=== PATIENT | male | born 1960 | race Two or more races ===

== ENCOUNTER 2019-02-22 16:10 | Inpatient (IN) | payer BC ==
[~2019-02-22] VITALS: Ht 172.7 cm; Wt 79.2 kg
[2019-02-22] MEDS ORDERED: fentaNYL PF VIAL 100 MCG/2 ML VIAL ONE ×2 (16:15→17:37)
[2019-02-22] MEDS ORDERED: IV NORMAL SALINE 1000ML BAG 1,000 ML IV STA (16:21)
[2019-02-22] MEDS ORDERED: IV NORMAL SALINE 1000ML BAG 1,000 ML IV ONE ×3 (16:30)
[2019-02-22] MEDS ORDERED: MORPHINE SULFATE 4 MG/ML VIAL. IV ONE (16:30)
[2019-02-22 16:36] LABS: BASO # 0.1 x10^3/uL (0.0-0.2); BASO % 1 % (0-3); EOS # 0.1 x10^3/uL (0.0-0.7); EOS % 1 % (0-3); HEMATOCRIT 36.7 % (39.0-53.0); LYMPH # 5.8 x10^3/uL (1.0-4.8); LYMPH % 45 % (24-48); MEAN CORPUSCULAR HEMOGLOBIN 30 pg (25-35); MEAN CORPUSCULAR HGB CONC 33 g/dL (31-37); MEAN CORPUSCULAR VOLUME 92 fL (79-100); MONO # 0.6 x10^3/uL (0.0-1.1); MONO % 5 % (0-9); NEUT # 6.1 x10^3uL (1.8-7.7); NEUT % 48 % (31-73); PLATELET COUNT 252 x10^3/uL (140-400); RED BLOOD COUNT 3.99 x10^6/uL (4.30-5.70); RED CELL DISTRIBUTION WIDTH 13.9 % (11.5-14.5); WHITE BLOOD COUNT 12.8 x10^3/uL (4.0-11.0)
--- NOTE | 2019-02-22 16:41 | RAD ---
EXAM: CHEST 1 VIEW History: Postcardiac arrest COMPARISON: None available. TECHNIQUE: Single portable radiograph of the chest FINDINGS: Mild cardiomegaly. Mild prominent appearing bilateral interstitial lung markings likely mild congestive changes. The costophrenic sulci are clear and well demarcated. IMPRESSION: 1. Mild congestive changes. Electronically signed by: Ernst Robb MD (02/22/2019 4:38 PM) [facility]
[2019-02-22 16:44] LABS: PROTHROMBIN TIME PATIENT 12.5 SEC (11.7-14.0)
[2019-02-22] MEDS ORDERED: AMIODARONE 150 MG in IV DEXTROSE 5% 100ML 100 ML IV ONE (16:45)
[2019-02-22] MEDS ORDERED: AMIODARONE 900 MG in IV DEXTROSE 5% 500 ML IV PRN (16:45)
[2019-02-22] MEDS ORDERED: PROPOFOL 10 MG/ML (20ML) VIAL. IV ONE (16:45)
[2019-02-22] MEDS ORDERED: PROPOFOL 100 ML IV ONE (16:50)
[2019-02-22 16:56] LABS: ALBUMIN/GLOBULIN RATIO 1.3 (1.0-1.7); CREATININE 1.5 mg/dL (0.7-1.3); GFR 47.7; TOTAL BILIRUBIN 0.4 mg/dL (0.2-1.0)
--- NOTE | 2019-02-22 16:56 | PHYS DOC ---
Adult General HPI HPI Patient is a 58 year old male who was brought here by EMS status post cardiac arrest. Per report patient was running marathons today, he finished about a mile, got into the back of a van to go to the next station, when he started s creaming and became unresponsive. The person in the van with him at the time started CPR. EMS was called, when they got there, took over CPR, in VF. Patient was shocked once, ROSC achieved. Patient was moaning, moving around in bed, appeared in pain. There was no evidence of trauma. Patient was brought here. Upon arrival, patient was agitated, rapid heart rate, appeared very uncomfortable, moaning. He was able to breath on his own. Patient was given 100 mcg OF Fentanyl upon arrival here. Patient appeared more relaxed. However, after the medication worn off, he became agitated and tried to pull out iv, medical devices, tried to get out of the bed. He was intubated by this physicia n by RSI for airway protection. PER FAMILY, PATIENT IS VERY HEALTHY, EXERCISE REGULARLY, ON BLOOD PRESSURE MEDICATION, ON cholesterol medication, no history of diabetic, no history of coronary artery disease. He has been under lot of stress lately due to his medical condition. Review of Systems Review of Systems not able to obtain due to condition All other systems were reviewed and found to be within normal limits, except as documented in this note. Current Medications Current Medications Current Medications Medications (Trade) Dose Ordered Sig/John Start Time Stop Time Status Last Admin Dose Admin Amiodarone HCl 150 mg/Dextrose 103 ml @ 618 mls/hr 1X ONCE 02/22/19 16:45 02/22/19 16:54 DC Amiodarone HCl 900 mg/Dextrose 518 ml @ 33 mls/hr CONT PRN 02/22/19 16:45 Etomidate (Amidate) 20 mg STK-MED ONCE 02/22/19 17:12 02/22/19 17:13 DC Fentanyl Citrate (Fentanyl 2ml Vial) 100 mcg STK-MED ONCE 02/22/19 16:15 02/22/19 16:16 DC Morphine Sulfate (Morphine Sulfate) 4 mg 1X ONCE 02/22/19 16:30 02/22/19 16:31 DC Ondansetron HCl (Zofran) 4 mg PRN Q8HRS PRN 02/22/19 17:15 02/23/19 17:14 Potassium Chloride 40 meq/ Dextrose 1,020 ml @ 75 mls/hr 1X ONCE 02/22/19 17:15 02/23/19 06:50 02/22/19 17:50 75 MLS/HR Propofol 100 ml @ As Directed STK-MED ONCE 02/22/19 16:50 02/22/19 16:51 DC Propofol (Diprivan) 200 mg 1X ONCE 02/22/19 16:45 02/22/19 16:46 DC Rocuronium [place] (Zemuron) 50 mg STK-MED ONCE 02/22/19 17:12 02/22/19 17:13 DC Sodium Chloride 1,000 ml @ 75 mls/hr [id number] 02/22/19 17:15 02/23/19 17:14 Allergies Allergies Physical Exam Physical Exam Constitutional: Well developed, well nourished, IN SEVERE DISTRESS, AGITATION.. HENT: Normocephalic, atraumatic, bilateral external ears normal, oropharynx moist, no oral exudates, nose normal. [] Eyes: PERRLA, EOMI, conjunctiva normal, no discharge. [] Neck: Normal range of motion, no tenderness, supple, no stridor. [] Cardiovascular: SINUS TACHYCARDIA, regular rhythm, no murmur [] Lungs & Thorax: Bilateral breath sounds clear to auscultation [] Abdomen: Bowel sounds normal, soft, no tenderness, no masses, no pulsatile masses. [] Skin: SKIN IS HOT TO TOUCH, PROFOUND DIAPHORESIS. Back: NO DEFORMITY, NO STEP OFF Extremities: ATRAUMATIC, no cyanosis, no clubbing, ROM intact, no edema. CALF MUSCLE APPEARED TENSED AND SPASM. NO INJURY Neurologic: PATIENT IS UNRESPONSIVE TO PAIN OR VERBAL COMMAND, THRASHING AROUND IN BED, APPEARED VERY UNCOMFORTABLE. OBSERVED MOVING ALL EXTREMITIES. Psychologic: NOT ABLE TO EVALUATE DUE TO AGITATED CONDITION. Current Patient Data Vital Signs Vital Signs Date Time Temp Pulse Resp B/P (MAP) Pulse Ox O2 Delivery O2 Flow Rate FiO2 02/22/19 16:10 160 Bag Valve Mask Lab Values Laboratory Tests Test 02/22/19 16:10 White Blood Count 12.8 x10^3/uL (4.0-11.0) H Red Blood Count 3.99 x10^6/uL (4.30-5.70) L Hemoglobin 12.0 g/dL (13.0-17.5) L Hematocrit 36.7 % (39.0-53.0) L Mean Corpuscular Volume 92 fL (79-100) Mean Corpuscular Hemoglobin 30 pg (25-35) Mean Corpuscular Hemoglobin Concent 33 g/dL (31-37) Red Cell Distribution Width 13.9 % (11.5-14.5) Platelet Count 252 x10^3/uL (140-400) Neutrophils (%) (Auto) 48 % (31-73) Lymphocytes (%) (Auto) 45 % (24-48) Monocytes (%) (Auto) 5 % (0-9) Eosinophils (%) (Auto) 1 % (0-3) Basophils (%) (Auto) 1 % (0-3) Neutrophils # (Auto) 6.1 x10^3uL (1.8-7.7) Lymphocytes # (Auto) 5.8 x10^3/uL (1.0-4.8) H Monocytes # (Auto) 0.6 x10^3/uL (0.0-1.1) Eosinophils # (Auto) 0.1 x10^3/uL (0.0-0.7) Basophils # (Auto) 0.1 x10^3/uL (0.0-0.2) Prothrombin Time 12.5 SEC (11.7-14.0) Prothrombin Time INR 1.0 (0.8-1.1) PTT 24 SEC (24-38) Sodium Level 141 mmol/L (136-145) Potassium Level 2.7 mmol/L (3.5-5.1) *L Chloride Level 101 mmol/L (98-107) Carbon Dioxide Level 16 mmol/L (21-32) L Anion Gap 24 (6-14) H Blood Urea Nitrogen 17 mg/dL (8-26) Creatinine 1.5 mg/dL (0.7-1.3) H Estimated GFR (Cockcroft-Gault) 47.7 BUN/Creatinine Ratio 11 (6-20) Glucose Level 224 mg/dL (70-99) H Calcium Level 9.0 mg/dL (8.5-10.1) Magnesium Level 2.0 mg/dL (1.8-2.4) Total Bilirubin 0.4 mg/dL (0.2-1.0) Aspartate Amino Transferase (AST) 190 U/L (15-37) H Alanine Aminotransferase (ALT) 221 U/L (16-63) H Alkaline Phosphatase 55 U/L (46-116) Creatine Kinase 178 U/L (39-308) Creatine Kinase MB (Mass) 2.1 ng/mL (0.0-3.6) Creatine Kinase MB Relative Index 1.2 % (0-4) Troponin I Quantitative < 0.017 ng/mL (0.000-0.055) WS-Rmi-Z-Type Natriuretic Peptide 175 pg/mL (0-124) H Total Protein 7.0 g/dL (6.4-8.2) Albumin 4.0 g/dL (3.4-5.0) Albumin/Globulin Ratio 1.3 (1.0-1.7) Lipase 131 U/L (73-393) Laboratory Tests 02/22/19 16:10 Laboratory Tests 02/22/19 16:10 EKG EKG EKG read by this physician at 1617, rate of 145 bpm, sinus tachycardia[] Radiology/Procedures Radiology/Procedures [][facility] [address] [facility] [place], [place] [id number] IMAGING REPORT Signed PATIENT: MARISSA BARNES ACCOUNT: [id number] : 1960 LOCATION: ER AGE: 58 SEX: M EXAM STATUS: REG ER ORD. PHYSICIAN: NGHIA DEL CASTILLO DO REASON: POST INTUBATION PROCEDURE: CHEST AP ONLY CHEST AP ONLY 4:44 PM Clinical indications: Post intubation. COMPARISON: Same day 4:26 PM Findings: ET tube is in place and the tip is located 4.5 cm above the level of the lorna. NG tube is in place and the tip is seen within the proximal body of the stomach. Persistent mild bilateral interstitial pulmonary edema or central interstitial lung infiltrates/bronchitis is again evident and is stable. No new lung consolidation or pleural effusion or pneumothorax is seen. The heart size and mediastinum are stable. IMPRESSION: Stable congestive changes. Electronically signed by: Aaron Alvarado MD (02/22/2019 5:01 PM) [id number] DICTATED and SIGNED BY: AARON ALVARADO MD DATE: 02/22/19 1701 Course & Med Decision Making Course & Med Decision Making Pertinent Labs and Imaging studies reviewed. (See chart for details) Patient appeared agitated and uncomfortable, moaning as if he as if he was in pain, his legs muscle cramping and spasm. He appeared to have muscle spasm , having rhabdomyolysis. He was sweated profusely. Patient has multiples iv placed, IV fluids were started. Patient was given 100 mcg Fentanyl iv bolus. He appeared more comfortable after iv pain medication. However, when medication worn off, his heart rate sped up and he started thrashing in bed again, moaning, appeared very agitated, twisting his legs and arm, tried to get out of bed. Patient was intubated for airway protection. Patient's came, requested transfer to [facility] BUT PATIENT WAS NOT STABLE TO BE TRANSFERRED AT THIS TIME. DRY CLEANING CHECKER, Dr. MATHIAS came to ER and evaluated patient. Patient was not STEMI PATIENT. HE AGREED THAT PATIENT WAS NOT STABLE FOR TRANSFER. Dragon Disclaimer Dragon Disclaimer This electronic medical record was generated, in whole or in part, using a voice recognition dictation system. Intubation Procedure Intub Indication: AGITATION, ALTERED MENTAL STATUS Consent: Unable to give consent due to emergent nature. Medications Used: 50 MG ROCURONIUM, 20 ETOMIDATE IV. Procedure: The patient was placed in the appropriate position. Intubation was performed [CORD VISUALIZATION METHOD] [ET TUBE SIZE 7.5 ] endotracheal tube. [ET SECURE AT 24 AT LIP). Initial confirmation of placement included bilateral breath sounds, tube fogging, adequate chest rise, adequate pulse oximetry reading. A chest x-ray to verify correct placement of the tube showed appropriate tube position. The patient tolerated the procedure well. Complications: none. Departure Departure Impression: Primary Impression: Ventricular fibrillation Additional Impressions: Cardiac arrest Dehydration Disposition: 09 ADMITTED INPATIENT Admitting Physician: Machelle Linn Condition: GUARDED Referrals: UNKNOWN PCP NAME (PCP) Problem Qualifiers NGHIA DEL CASTILLO DO February 22, 2019 16:56
[2019-02-22] MEDS: PROPOFOL 100 ML IV PRN ×2 (16:57→21:11)
[2019-02-22 17:04] LABS: POTASSIUM 2.7 mmol/L (3.5-5.1)
--- NOTE | 2019-02-22 17:04 | RAD ---
CHEST AP ONLY 4:44 PM Clinical indications: Post intubation. COMPARISON: Same day 4:26 PM Findings: ET tube is in place and the tip is located 4.5 cm above the level of the lorna. NG tube is in place and the tip is seen within the proximal body of the stomach. Persistent mild bilateral interstitial pulmonary edema or central interstitial lung infiltrates/bronchitis is again evident and is stable. No new lung consolidation or pleural effusion or pneumothorax is seen. The heart size and mediastinum are stable. IMPRESSION: Stable congestive changes. Electronically signed by: Saúl Alvarado MD (02/22/2019 5:01 PM) [id number]
[2019-02-22] MEDS ORDERED: ROCURONIUM 50 MG/5 ML VIAL. ONE (17:12)
[2019-02-22] MEDS ORDERED: ETOMIDATE 20 MG/10 ML VIAL. IV ONE ×2 (17:12→20:30)
[2019-02-22] MEDS ORDERED: ONDANSETRON PF 4 MG/2 ML VIAL. IV PRN (17:15)
[2019-02-22] MEDS ORDERED: POTASSIUM CHLORIDE 40 MEQ in IV DEXTROSE 5% 1,000 ML IV ONE (17:15)
[2019-02-22] MEDS ORDERED: IV NORMAL SALINE 1000ML BAG 1,000 ML IV SCH (17:15)
[2019-02-22] MEDS ORDERED: POTASSIUM CHLORIDE 20 MEQ/15 ML ORAL LIQUID. NG ONE (17:30)
[2019-02-22] MEDS ORDERED: LABETALOL 20 MG/4 ML DISP.SYRIN. IVP ONE (17:30)
[2019-02-22] MEDS ORDERED: MIDAZOLAM HCL/PF 5 MG/5 ML VIAL. ONE (17:58)
[2019-02-22 18:03] LABS: BASE EXCESS ABG -10 mmol/L (-3-3); HCO3 ABG 16 mmol/L (21-28); PCO2 ABG 37 mmHg (35-46); PO2 ABG 161 mmHg (65-108); SAT O2 ABG 98 % (92-99)
[2019-02-22] MEDS ORDERED: SODIUM BICARB ADULT 8.4% 50 MEQ/50 ML DISP.SYRIN. ONE (18:08)
[2019-02-22] MEDS ORDERED: VECURONIUM BOLUS 10 MG VIAL. IV ONE (19:25)
[2019-02-22] MEDS ORDERED: MIDAZOLAM HCL/PF 2 MG/2 ML VIAL. IV ONE (19:30)
[2019-02-22] MEDS ORDERED: fentaNYL PF VIAL 100 MCG/2 ML VIAL IV ONE ×3 (19:30→21:30)
[2019-02-22] MEDS ORDERED: POLYVINYL ALCOHOL 1.4% OPHTH SOLUTION 15ML BOTTLE. OU PRN (19:30)
[2019-02-22] MEDS ORDERED: MAGNESIUM SULFATE 1GM 100 ML IV ONE (19:30)
[2019-02-22] MEDS ORDERED: POTASSIUM CL 20MEQ D5-0.45NACL 1,000 ML IV SCH (19:45)
--- NOTE | 2019-02-22 19:45 | PDOC1 ---
History and Physical Date of Admission Date of Admission DATE: 02/22/19 TIME: 19:38 Identification/Chief Complaint Chief Complaint arrest in field Source Source: Chart review History of Present Illness History of Present Illness Mr. Snell, is a 58 year old athletic appearing male brought by EMS status post cardiac arrest. He ran a race today, then at a rest point, became unresponsive, then had no pulse, CPR start, EMS called, , in VF when they arrived, . Patient was shocked once, ROSC achieved. then he was agitated, moaning, moving, appeared in pain. tachycardia and agitated in ER, IV pain meds given, then combative, and he was sedated and intubated, Past Medical History Cardiovascular: HTN Pulmonary: No pertinent hx Hepatobiliary: No pertinent hx Psych: No pertinent hx Rheumatologic: No pertinent hx Infectious disease: No pertinent hx Family History Family History: Family History Unknown Social History Drugs: Other (unknown ) Current Problem List Problem List Problems Medical Problems: (1) Cardiac arrest Status: Acute (2) Dehydration Status: Acute (3) Ventricular fibrillation Status: Acute Current Medications Current Medications Current Medications Fentanyl Citrate (Fentanyl 2ml Vial) 100 mcg STK-MED ONCE .ROUTE ; Start 02/22/19 at 16:15; Stop 02/22/19 at 16:16; Status DC Sodium Chloride 1,000 ml @ 1,000 mls/hr 1X STAT IV ; Start 02/22/19 at 16:21; Stop 02/22/19 at 17:20; Status DC Sodium Chloride 1,000 ml @ 1,000 mls/hr 1X ONCE IV ; Start 02/22/19 at 16:30; Stop 02/22/19 at 17:29; Status DC Sodium Chloride 1,000 ml @ 1,000 mls/hr 1X ONCE IV ; Start 02/22/19 at 16:30; Stop 02/22/19 at 17:29; Status DC Sodium Chloride 1,000 ml @ 1,000 mls/hr 1X ONCE IV ; Start 02/22/19 at 16:30; Stop 02/22/19 at 17:29; Status DC Morphine Sulfate (Morphine Sulfate) 4 mg 1X ONCE IV ; Start 02/22/19 at 16:30; Stop 02/22/19 at 16:31; Status DC Propofol (Diprivan) 200 mg 1X ONCE IV ; Start 02/22/19 at 16:45; Stop 02/22/19 at 16:46; Status DC Amiodarone HCl 150 mg/Dextrose 103 ml @ 618 mls/hr 1X ONCE IV ; Start 02/22/19 at 16:45; Stop 02/22/19 at 16:54; Status DC Amiodarone HCl 900 mg/Dextrose 518 ml @ 33 mls/hr CONT PRN IV SEE I/O RECORD; Start 02/22/19 at 16:45 Propofol 100 ml @ As Directed STK-MED ONCE IV ; Start 02/22/19 at 16:50; Stop 02/22/19 at 16:51; Status DC Potassium Chloride 40 meq/ Dextrose 1,020 ml @ 75 mls/hr 1X ONCE IV Last administered on 02/22/19at 17:50; Start 02/22/19 at 17:15; Stop 02/23/19 at 06:50 Etomidate (Amidate) 20 mg STK-MED ONCE IV ; Start 02/22/19 at 17:12; Stop 02/22/19 at 17:13; Status DC Rocuronium [place] (Zemuron) 50 mg STK-MED ONCE .ROUTE ; Start 02/22/19 at 17:12; Stop 02/22/19 at 17:13; Status DC Labetalol HCl (Normodyne Iv Push) 20 mg 1X ONCE IVP ; Start 02/22/19 at 17:30; Stop 02/22/19 at 17:31; Status DC Potassium Chloride (KCl Oral Soln) 80 meq 1X ONCE NG Last administered on 02/22/19at 17:29; Start 02/22/19 at 17:30; Stop 02/22/19 at 17:31; Status DC Ondansetron HCl (Zofran) 4 mg PRN Q8HRS PRN IV NAUSEA/VOMITING; Start 02/22/19 at 17:15; Stop 02/23/19 at 17:14 Sodium Chloride 1,000 ml @ 75 mls/hr [id number] IV ; Start 02/22/19 at 17:15; Stop 02/23/19 at 17:14 Fentanyl Citrate (Fentanyl 2ml Vial) 100 mcg STK-MED ONCE .ROUTE ; Start 02/22/19 at 17:37; Stop 02/22/19 at 17:38; Status DC Midazolam HCl (Versed) 5 mg STK-MED ONCE .ROUTE ; Start 02/22/19 at 17:58; Stop 02/22/19 at 17:59; Status DC Sodium Bicarbonate (Sodium Bicarb Adult 8.4% Syr) 50 meq STK-MED ONCE .ROUTE ; Start 02/22/19 at 18:08; Stop 02/22/19 at 18:09; Status DC Vecuronium [place] (Norcuron Bolus) 10 mg STK-MED ONCE IV ; Start 02/22/19 at 19:25; Stop 02/22/19 at 19:26; Status DC Fentanyl Citrate (Fentanyl 2ml Vial) 100 mcg 1X ONCE IV ; Start 02/22/19 at 19:30; Stop 02/22/19 at 19:31; Status DC Midazolam HCl (Versed) 2 mg 1X ONCE IV ; Start 02/22/19 at 19:30; Stop 02/22/19 at 19:32; Status DC Magnesium Sulfate/ Dextrose 100 ml @ 100 mls/hr 1X ONCE IV ; Start 02/22/19 at 19:30; Stop 02/22/19 at 20:29 Buspirone HCl (Buspar) 30 mg Q8H NG ; Start 02/22/19 at 19:30; Stop 02/24/19 at 11:31 Acetaminophen (Tylenol) 650 mg Q4H NG ; Start 02/22/19 at 19:30 Artificial Tears (Artificial Tears) 1 drop Q6HRS OU ; Start 02/23/19 at 00:00 Artificial Tears (Artificial Tears) 1 drop PRN Q15MIN PRN OU DRY EYE; Start 02/22/19 at 19:30 Heparin Sodium (Porcine) (Heparin Sodium) 5,000 unit BID SQ ; Start 02/22/19 at 21:00 Fentanyl Citrate 30 ml @ 0 mls/hr CONT PRN IV PER PROTOCOL.; Start 02/22/19 at 19:30 Propofol 100 ml @ 0 mls/hr CONT PRN IV PER PROTOCOL.; Start 02/22/19 at 19:30 Midazolam HCl 100 ml @ 0 mls/hr CONT PRN IV PER PROTOCOL.; Start 02/22/19 at 19:30 Vecuronium [place] (Norcuron Bolus) 8 mg PRN Q1HR PRN IV SHIVERING; Start 02/22/19 at 19:30 Allergies Allergies: Coded Allergies: No Known Drug Allergies (Unverified , 02/22/19) ROS Review of System unable, arrested, then vent Physical Exam General: Other (sedated on vent, ) HEENT: Atraumatic, Other (small pupils, reactive anicteric, ) Lungs: Clear to auscultation, Normal air movement Heart: S1S2, RRR, no murmurs Abdomen: Normal bowel sounds, Soft Rectal Exam: not examined Extremities: No cyanosis, No edema, Normal pulses, Other Skin: No rashes, No breakdown, No significant lesion, Other (scar on left dorsum foot, prior toe surg, cool feet) Neuro: Normal tone, Other Psych/Mental Status: Other (sedated) Vitals Vitals Vital Signs Date Time Temp Pulse Resp B/P (MAP) Pulse Ox O2 Delivery O2 Flow Rate FiO2 02/22/19 16:10 160 Bag Valve Mask Labs Labs Laboratory Tests Test 02/22/19 16:10 White Blood Count 12.8 x10^3/uL (4.0-11.0) Red Blood Count 3.99 x10^6/uL (4.30-5.70) Hemoglobin 12.0 g/dL (13.0-17.5) Hematocrit 36.7 % (39.0-53.0) Mean Corpuscular Volume 92 fL (79-100) Mean Corpuscular Hemoglobin 30 pg (25-35) Mean Corpuscular Hemoglobin Concent 33 g/dL (31-37) Red Cell Distribution Width 13.9 % (11.5-14.5) Platelet Count 252 x10^3/uL (140-400) Neutrophils (%) (Auto) 48 % (31-73) Lymphocytes (%) (Auto) 45 % (24-48) Monocytes (%) (Auto) 5 % (0-9) Eosinophils (%) (Auto) 1 % (0-3) Basophils (%) (Auto) 1 % (0-3) Neutrophils # (Auto) 6.1 x10^3uL (1.8-7.7) Lymphocytes # (Auto) 5.8 x10^3/uL (1.0-4.8) Monocytes # (Auto) 0.6 x10^3/uL (0.0-1.1) Eosinophils # (Auto) 0.1 x10^3/uL (0.0-0.7) Basophils # (Auto) 0.1 x10^3/uL (0.0-0.2) Prothrombin Time 12.5 SEC (11.7-14.0) Prothromb Time International Ratio 1.0 (0.8-1.1) Activated Partial Thromboplast Time 24 SEC (24-38) Sodium Level 141 mmol/L (136-145) Potassium Level 2.7 mmol/L (3.5-5.1) Chloride Level 101 mmol/L (98-107) Carbon Dioxide Level 16 mmol/L (21-32) Anion Gap 24 (6-14) Blood Urea Nitrogen 17 mg/dL (8-26) Creatinine 1.5 mg/dL (0.7-1.3) Estimated GFR (Cockcroft-Gault) 47.7 BUN/Creatinine Ratio 11 (6-20) Glucose Level 224 mg/dL (70-99) Calcium Level 9.0 mg/dL (8.5-10.1) Magnesium Level 2.0 mg/dL (1.8-2.4) Total Bilirubin 0.4 mg/dL (0.2-1.0) Aspartate Amino Transf (AST/SGOT) 190 U/L (15-37) Alanine Aminotransferase (ALT/SGPT) 221 U/L (16-63) Alkaline Phosphatase 55 U/L (46-116) Creatine Kinase 178 U/L (39-308) Creatine Kinase MB (Mass) 2.1 ng/mL (0.0-3.6) Creatine Kinase MB Relative Index 1.2 % (0-4) Troponin I Quantitative < 0.017 ng/mL (0.000-0.055) [id number]-Type Natriuretic Peptide 175 pg/mL (0-124) Total Protein 7.0 g/dL (6.4-8.2) Albumin 4.0 g/dL (3.4-5.0) Albumin/Globulin Ratio 1.3 (1.0-1.7) Lipase 131 U/L (73-393) Laboratory Tests Test 02/22/19 16:10 White Blood Count 12.8 x10^3/uL (4.0-11.0) Red Blood Count 3.99 x10^6/uL (4.30-5.70) Hemoglobin 12.0 g/dL (13.0-17.5) Hematocrit 36.7 % (39.0-53.0) Mean Corpuscular Volume 92 fL (79-100) Mean Corpuscular Hemoglobin 30 pg (25-35) Mean Corpuscular Hemoglobin Concent 33 g/dL (31-37) Red Cell Distribution Width 13.9 % (11.5-14.5) Platelet Count 252 x10^3/uL (140-400) Neutrophils (%) (Auto) 48 % (31-73) Lymphocytes (%) (Auto) 45 % (24-48) Monocytes (%) (Auto) 5 % (0-9) Eosinophils (%) (Auto) 1 % (0-3) Basophils (%) (Auto) 1 % (0-3) Neutrophils # (Auto) 6.1 x10^3uL (1.8-7.7) Lymphocytes # (Auto) 5.8 x10^3/uL (1.0-4.8) Monocytes # (Auto) 0.6 x10^3/uL (0.0-1.1) Eosinophils # (Auto) 0.1 x10^3/uL (0.0-0.7) Basophils # (Auto) 0.1 x10^3/uL (0.0-0.2) Prothrombin Time 12.5 SEC (11.7-14.0) Prothromb Time International Ratio 1.0 (0.8-1.1) Activated Partial Thromboplast Time 24 SEC (24-38) Sodium Level 141 mmol/L (136-145) Potassium Level 2.7 mmol/L (3.5-5.1) Chloride Level 101 mmol/L (98-107) Carbon Dioxide Level 16 mmol/L (21-32) Anion Gap 24 (6-14) Blood Urea Nitrogen 17 mg/dL (8-26) Creatinine 1.5 mg/dL (0.7-1.3) Estimated GFR (Cockcroft-Gault) 47.7 BUN/Creatinine Ratio 11 (6-20) Glucose Level 224 mg/dL (70-99) Calcium Level 9.0 mg/dL (8.5-10.1) Magnesium Level 2.0 mg/dL (1.8-2.4) Total Bilirubin 0.4 mg/dL (0.2-1.0) Aspartate Amino Transf (AST/SGOT) 190 U/L (15-37) Alanine Aminotransferase (ALT/SGPT) 221 U/L (16-63) Alkaline Phosphatase 55 U/L (46-116) Creatine Kinase 178 U/L (39-308) Creatine Kinase MB (Mass) 2.1 ng/mL (0.0-3.6) Creatine Kinase MB Relative Index 1.2 % (0-4) Troponin I Quantitative < 0.017 ng/mL (0.000-0.055) CZ-Ofg-B-Type Natriuretic Peptide 175 pg/mL (0-124) Total Protein 7.0 g/dL (6.4-8.2) Albumin 4.0 g/dL (3.4-5.0) Albumin/Globulin Ratio 1.3 (1.0-1.7) Lipase 131 U/L (73-393) VTE Prophylaxis Ordered VTE Prophylaxis Devices: No VTE Pharmacological Prophylaxi: Yes Assessment/Plan Assessment/Plan cardiac arrest in the field V tach, consult cardiology, unsure of CV hx critcal hypokalemia poss CKD 3 or vasomotor, transaminitis, NOS ICU admit, on vent, PULM consult, cooling protocol supportive care ICU admit, 40 min , 3 visits BO RINCON MD February 22, 2019 19:45
[2019-02-22 20:01] LABS: FIO2 ABG 80%
[2019-02-22 20:15] VITALS: BP 131/78
--- NOTE | 2019-02-22 20:15 | NUR ---
Pt admitted to ICU rm [address] RINCON for post-cardiac arrest out of hospital. Hypothermia protocol ordered, initiated before arrival to ICU. Pt transferred to ICU by 3 PRICER BAGGER's, as well as RT. On arrival, pt on vent 50%, propofol gtt, amiodarone gtt, all VSS with core temperature around 93 degrees Farenheit, and RASS -4, no shivering noted. Hypothermia protocol further initiated, labs drawn, orders received. Admission/past health history completed by Geetha Connolly at bedside.
[2019-02-22 20:30] VITALS: BP 120/71
[2019-02-22] MEDS ORDERED: ROCURONIUM 100 MG/10 ML VIAL. IV ONE (20:30)
[2019-02-22 20:45] VITALS: BP 119/74
[2019-02-22] MEDS ORDERED: SODIUM BICARB ADULT 8.4% 50 MEQ/50 ML DISP.SYRIN. IV ONE (20:45)
--- NOTE | 2019-02-22 20:45 | RAD ---
CT scan of the head without contrast 02/22/2019 Clinical History: Altered mental status. Technique: Unenhanced, contiguous, 5 mm axial sections were obtained through the head. One or more of the following individualized dose reduction techniques were utilized for this study: 1. Automated exposure control. 2. Adjustment of the mA and/or kV according to patient size. 3. Use of iterative reconstruction technique. Findings: No previous studies are available for comparison. There is generalized parenchymal atrophy. Areas of decreased attenuation are seen within the periventricular and subcortical white matter of both cerebral hemispheres consistent with areas of small vessel ischemic disease. No acute parenchymal abnormality is seen. No extra-axial fluid collection is noted. No skull fracture is seen. Impression: No acute intracranial abnormality is seen. CT scan of the cervical spine without contrast 02/22/2019 Clinical history: Neck injury. Technique: Unenhanced, contiguous, 0.625 mm axial sections were obtained through the cervical spine. Axial, coronal and sagittal reconstructed images were obtained. One or more of the following individualized dose reduction techniques were utilized for this study: 1. Automated exposure control. 2. Adjustment of the mA and/or kV according to patient size. 3. Use of iterative reconstruction technique. Findings: Sagittal coronal reconstructed images demonstrate mild lateral curvature of the cervical spine, convex to the right. No fracture or subluxation cervical vertebrae seen. ET and NG tubes are noted in place. Impression: No fracture or subluxation of the cervical vertebra is identified. Electronically signed by: Louis Paris MD (02/22/2019 8:42 PM) [facility]
[2019-02-22 21:00] VITALS: BP 135/66
[2019-02-22] MEDS: POTASSIUM CHLORIDE 10MEQ 100 ML IV SCH ×4 (21:00→23:00)
[2019-02-22] MEDS: VECURONIUM BOLUS 10 MG VIAL. IV PRN ×2 (21:01→21:27)
[2019-02-22] MEDS: busPIRone 10 MG TABLET. NG SCH (21:02)
[2019-02-22] MEDS: ACETAMINOPHEN 650 MG/20.3 ML SOLUTION. NG SCH (21:02)
[2019-02-22 21:09] LABS: CALCIUM 7.2 mg/dL (8.5-10.1); CREATININE 1.1 mg/dL (0.7-1.3); GFR 68.3; POTASSIUM 5.6 mmol/L (3.5-5.1)
[2019-02-22] MEDS: HEPARIN for SUB-Q USE 5,000 UNIT/ML VIAL. SQ SCH (21:24)
[2019-02-22] MEDS ORDERED: MIDAZOLAM HCL/PF 5 MG/5 ML VIAL. IV ONE (21:30)
--- NOTE | 2019-02-22 21:30 | NUR ---
Targeted temperature reached.
[2019-02-22 22:00] VITALS: BP 92/58
--- NOTE | 2019-02-22 22:00 | NUR ---
Dr. Linn called unit to check on patient, updated on status, notified of potassium level of 5.6. Orders received to stop all Potassium replacements and switch to Normal Saline at 150ML/hr.
[2019-02-22] MEDS ORDERED: INSULIN REGULAR VIAL 150 UNIT in 0.9 % SODIUM CHLORIDE 150ML 150 ML IV PRN (22:15)
[2019-02-22 23:00] VITALS: BP 101/57
[2019-02-22] MEDS: MIDAZOLAM 100mg/100ml NS BAG 100 ML IV PRN (23:00)
[2019-02-22] MEDS: IV NORMAL SALINE 1000ML BAG 1,000 ML IV SCH (23:12)
[2019-02-23] VITALS (29 sets, daily range): BP systolic 77–137; BP diastolic 48–77
[2019-02-23] MEDS: ACETAMINOPHEN 650 MG/20.3 ML SOLUTION. NG SCH ×7 (00:30→23:40)
[2019-02-23] MEDS: VECURONIUM BOLUS 10 MG VIAL. IV PRN ×4 (00:39→19:59)
[2019-02-23] MEDS: POLYVINYL ALCOHOL 1.4% OPHTH SOLUTION 15ML BOTTLE. OU SCH ×5 (01:13→23:57)
[2019-02-23 01:51] LABS: BASO # 0.1 x10^3/uL (0.0-0.2); BASO % 0 % (0-3); EOS % 0 % (0-3); HEMATOCRIT 30.7 % (39.0-53.0); HEMOGLOBIN 10.1 g/dL (13.0-17.5); LYMPH # 2.5 x10^3/uL (1.0-4.8); LYMPH % 21 % (24-48); MEAN CORPUSCULAR HEMOGLOBIN 30 pg (25-35); MEAN CORPUSCULAR HGB CONC 33 g/dL (31-37); MEAN CORPUSCULAR VOLUME 92 fL (79-100); MONO % 8 % (0-9); NEUT # 8.2 x10^3uL (1.8-7.7); NEUT % 70 % (31-73); PLATELET COUNT 169 x10^3/uL (140-400); RED BLOOD COUNT 3.36 x10^6/uL (4.30-5.70); WHITE BLOOD COUNT 11.7 x10^3/uL (4.0-11.0)
[2019-02-23 02:07] LABS: CALCIUM 7.3 mg/dL (8.5-10.1); CREATININE 0.9 mg/dL (0.7-1.3); GFR 86.1; MAGNESIUM 2.2 mg/dL (1.8-2.4); PHOSPHORUS 1.9 mg/dL (2.6-4.7); POTASSIUM 4.1 mmol/L (3.5-5.1)
[2019-02-23 02:31] LABS: PROTHROMBIN TIME PATIENT 13.4 SEC (11.7-14.0)
[2019-02-23] MEDS ORDERED: PRAV80TA2 PO (03:18)
[2019-02-23] MEDS ORDERED: QUIN20TA17 PO (03:18)
[2019-02-23] MEDS ORDERED: SODIUM PHOSPHATE 10 MMOL in IV DEXTROSE 5% 250 ML IV ONE (04:00)
[2019-02-23] MEDS ORDERED: MAGNESIUM SULFATE 2GM 50 ML IV ONE ×2 (04:00→09:45)
[2019-02-23] MEDS: busPIRone 10 MG TABLET. NG SCH ×3 (04:02→19:39)
[2019-02-23 05:08] LABS: BILIRUBIN,URINE NEGATIVE (NEG); CLARITY,URINE CLEAR; COLOR,URINE YELLOW; NITRITE,URINE NEGATIVE (NEG); PROTEIN,URINE 30 mg/dL (NEG-TRACE); UROBILINOGEN,URINE 0.2 mg/dL (0.2 mg/dL)
[2019-02-23 05:19] LABS: BACTERIA,URINE FEW /HPF (0-FEW); RBC,URINE 20-40 /HPF (0-2); SQUAMOUS EPITHELIAL CELL,UR FEW /LPF; WBC,URINE OCC /HPF (0-4)
[2019-02-23 05:25] LABS: BARBITURATES NEG (NEG); BENZODIAZEPINES POS (NEG); CANNABINOIDS NEG (NEG); COCAINE NEG (NEG); METHADONE NEG (NEG); OPIATES POS (NEG); PHENCYCLIDINE NEG (NEG)
[2019-02-23 05:28] LABS: AMPHETAMINE/METHAMPHETAMINE NEG (NEG)
[2019-02-23] MEDS: IV NORMAL SALINE 1000ML BAG 1,000 ML IV SCH ×3 (05:36→18:02)
--- NOTE | 2019-02-23 06:24 | EKG ---
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
--- NOTE | 2019-02-23 06:26 | EKG ---
[facility] [address] [place] [address] Test Date: 2019-02-22 Test Time: 16:17:04 Pat Name: MARISSA BARNES Department: Room: [facility] 1 Gender: M Health Record Technician: : 1960 Requested By: BO RINCON Order Number: [id number] Reading MD: Measurements Intervals [place] Rate: 143 P: -167 RI: 122 QRS: 80 QRSD: 80 T: 25 QT: 270 QTc: 421 Interpretive Statements SINUS TACHYCARDIA LEFT ATRIAL ABNORMALITY ST ABNORMALITY, POSSIBLE INFERIOR SUBENDOCARDIAL INJURY ABNORMAL ECG No previous ECG available for comparison
--- NOTE | 2019-02-23 08:03 | PDOC2 ---
CARDIOLOGY CONSULT NOTE CHEIF COMPLAINT: Syncope HPI: 58-year-old male with past medical history as noted below who apparently was doing a 5K run and began to experience some shortness of breath after 1 mile and was climbing into the pace car and passed out. EMS arrived and noted that he was in ventricular fibrillation and was different later once. He was brought to the ER at that time was moving all his extremities but quite agitated and ultimately was intubated for airway protection. Initial blood pressures were elevated with systolic blood pressure greater than 200 and EKG did not reveal any significant ST elevations. His troponin was negative. In speaking with the patient's he had not been having any recent symptoms such as chest pain, dyspnea, orthopnea or PND. He's never had any prior cardiac interventions. He is usually quite active and exercises regularly. 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 He is and has 2 daughters. His works at [employer]. His daughter works at [employer] as a nurse. FAMHX: No family history of sudden cardiac . CURRENT MEDS: Current Medications Medications (Trade) Dose Ordered Sig/John Start Time Stop Time Status Last Admin Dose Admin Acetaminophen (Tylenol) 650 mg Q4H 02/22/19 19:30 02/23/19 04:04 650 MG Amiodarone HCl 150 mg/Dextrose 103 ml @ 618 mls/hr 1X ONCE 02/22/19 16:45 02/22/19 16:54 DC Amiodarone HCl 900 mg/Dextrose 518 ml @ 33 mls/hr CONT PRN 02/22/19 16:45 Artificial Tears (Artificial Tears) 1 drop PRN Q15MIN PRN 02/22/19 19:30 Buspirone HCl (Buspar) 30 mg Q8H 02/22/19 19:30 02/24/19 11:31 02/23/19 04:02 30 MG Etomidate (Amidate) 20 mg 1X ONCE 02/22/19 20:30 02/22/19 20:34 DC 02/22/19 16:31 20 MG Fentanyl Citrate (Fentanyl 2ml Vial) 100 mcg 1X ONCE 02/22/19 21:30 02/22/19 21:31 DC 02/22/19 17:39 100 MCG Heparin Sodium (Porcine) (Heparin Sodium) 5,000 unit BID 02/22/19 21:00 02/22/19 21:24 5,000 UNIT Insulin Human Regular 150 unit/ Sodium Chloride 151.5 ml @ 0 mls/hr CONT PRN 02/22/19 22:15 Labetalol HCl (Normodyne Iv Push) 20 mg 1X ONCE 02/22/19 17:30 02/22/19 17:31 DC Magnesium Sulfate 50 ml @ 25 mls/hr 1X ONCE 02/23/19 04:00 02/23/19 05:59 DC 02/23/19 04:04 25 MLS/HR Magnesium Sulfate/ Dextrose 100 ml @ 100 mls/hr 1X ONCE 02/22/19 19:30 02/22/19 20:34 DC 02/22/19 21:09 100 MLS/HR Midazolam HCl (Versed) 4 mg 1X ONCE 02/22/19 21:30 02/22/19 21:31 DC 02/22/19 17:59 4 MG Morphine Sulfate (Morphine Sulfate) 4 mg 1X ONCE 02/22/19 16:30 02/22/19 16:31 DC 02/22/19 16:27 4 MG Ondansetron HCl (Zofran) 4 mg PRN Q8HRS PRN 02/22/19 17:15 02/23/19 17:14 Potassium Chloride 40 meq/ Dextrose 1,020 ml @ 75 mls/hr 1X ONCE 02/22/19 17:15 02/23/19 06:50 DC 02/22/19 17:50 75 MLS/HR Potassium Chloride/Dextrose/ Sod Cl 1,000 ml @ 100 mls/hr Q10H 02/22/19 19:45 02/23/19 05:34 DC Potassium Chloride/Water 100 ml @ 100 mls/hr Q1H 02/22/19 20:00 02/22/19 23:59 DC 02/22/19 21:08 100 MLS/HR Potassium Chloride (KCl Oral Soln) 80 meq 1X ONCE 02/22/19 17:30 02/22/19 17:31 DC 02/22/19 17:29 80 MEQ Propofol 100 ml @ 0 mls/hr CONT PRN 02/22/19 19:30 02/22/19 21:11 21.6 MLS/HR Propofol (Diprivan) 200 mg 1X ONCE 02/22/19 16:45 02/22/19 16:46 DC Rocuronium [place] (Zemuron) 50 mg 1X ONCE 02/22/19 20:30 02/22/19 20:34 DC 02/22/19 16:32 50 MG Sodium Bicarbonate (Sodium Bicarb Adult 8.4% Syr) 50 meq 1X ONCE 02/22/19 20:45 02/22/19 20:46 DC 02/22/19 18:11 50 MEQ Sodium Chloride 1,000 ml @ 150 mls/hr Q6H40M 02/22/19 22:30 02/23/19 05:36 150 MLS/HR Sodium Phosphate 10 mmol/Dextrose 253.3333 ml @ 64.167 m... 1X ONCE 02/23/19 04:00 02/23/19 07:56 02/23/19 06:24 64.167 MLS/HR Vecuronium [place] (Norcuron Bolus) 8 mg PRN Q1HR PRN 02/22/19 19:30 02/23/19 06:27 8 MG ALLERGIES: Allergies Coded Allergies Type Severity Reaction Last Updated Verified No Known Drug Allergies 02/22/19 No ROS: Unable to be obtained unless as noted as above PHYSICAL EXAM: Vital Signs: Vital Signs Date Time Temp Pulse Resp B/P (MAP) Pulse Ox O2 Delivery O2 Flow Rate FiO2 02/23/19 06:24 100 Ventilator 02/23/19 06:00 91.2 16 02/23/19 06:00 44 95/53 (67) I & O Intake and Output 02/23/19 07:00 Intake Total 5573.9 ml Output Total 2225 ml Balance 3348.9 ml Intake IV Total 5573.9 ml Output Urine Total 1725 ml Gastric Drainage Total 500 ml Physical Exam: On initial examination the ER he was sedated but moving extremities on his own. Cardiac exam revealed normal heart tones. No obvious murmurs rubs or gallops Lungs are fairly clear to auscultation bilaterally Abdomen soft nontender nondistended except these had 2+ pulses in the femoral arteries, radial arteries and pedal vessels No obvious trauma was noted. Skin was without any mottling. DIAGNOSTIC TESTING: Hemoglobin 10.1, creatinine 0.9 Platelets within normal limits Potassium 2.7 upon arrival with repeated 5.6 EKG with sinus tachycardia without any significant ST elevations. Initial EKG that suggested VF is unavailable for review. ASSESSMENT: 1. Cardiac arrest - DDx includes coronary disease (although initial troponin negative and no ST elevations), metabolic derangements (low K) or intrinsic rhythm issues. 2. HTN -stable 3. Dyslipidemia - controlled. PLAN: 1. Currently there is no acute indication for emergent cardiac catheterization. Would suggest continued stabilization and repletion of electrolytes and obtaining a echocardiogram. I discussed this extensively with the patient's family. 2. The patient's family was initially considering transfer to [facility] but in the setting of his instability and weather conditions I advised that he be admitted to [place] and initiated on hypothermic protocol. We will continue to follow serial enzymes and EKGs and determine if any progression of ischemia is occurring and can at that time consider further evaluation and treatment. 3. Continue amiodarone therapy for now. Depending on his clinic records we will likely transfer him to [facility] on , February 24 or pursue further studies here at [place] as needed. RENU LARES MD February 23, 2019 08:03
[2019-02-23] MEDS ORDERED: CONTRAST GIVEN. MC PRN (08:45)
--- NOTE | 2019-02-23 08:49 | PDOC ---
PROGRESS NOTES Chief Complaint Chief Complaint Cardiac arrest in the field V tach - consult cardiology, unsure of CV hx Critical hypokalemia EMA - vasomotor nephropathy Transaminitis, NOS ICU admit, on vent, PULM consult, cooling protocol supportive care ICU admit, 37 min CC time History of Present Illness History of Present Illness Mr. Snell is a 58 yo athletic appearing male brought by EMS status post cardiac arrest after collapsing following a 5K race. He became unresponsive, pulseless, CPR initiated, EMS called, in VF when they arrived, shocked once, ROSC achieved. He was agitated, moaning, moving, appeared in pain, was tachycardia and intubated in ER. S/p cardiology consultation. Other than sinus tachycardia and very mild troponin elevation 0.3 the suspicion for etiology is metabolic derangement, hypokalemia 2.9, replaced, or possible thrombosis. Has been stable on the vent on hypothermia protocol. D/w family bedside. His spouse works at [employer] [facility] and has requested transfer there, which I have explained we can accommodate once more s table. Vitals Vitals Vital Signs Date Time Temp Pulse Resp B/P (MAP) Pulse Ox O2 Delivery O2 Flow Rate FiO2 02/23/19 06:24 100 Ventilator 02/23/19 06:00 91.2 16 02/23/19 06:00 44 95/53 (67) Physical Exam General: No acute distress, Other (sedated on vent, ) Heart: Regular rate Lungs: Clear Abdomen: Normal bowel sounds, Soft Extremities: No cyanosis, No edema, Normal pulses, Other Skin: No rashes, No breakdown, No significant lesion, Other (scar on left dorsum foot, prior toe surg, cool feet) Labs LABS Laboratory Tests Test 02/22/19 16:10 02/22/19 17:41 02/22/19 20:40 02/22/19 22:59 White Blood Count 12.8 x10^3/uL (4.0-11.0) Red Blood Count 3.99 x10^6/uL (4.30-5.70) Hemoglobin 12.0 g/dL (13.0-17.5) Hematocrit 36.7 % (39.0-53.0) Mean Corpuscular Volume 92 fL (79-100) Mean Corpuscular Hemoglobin 30 pg (25-35) Mean Corpuscular Hemoglobin Concent 33 g/dL (31-37) Red Cell Distribution Width 13.9 % (11.5-14.5) Platelet Count 252 x10^3/uL (140-400) Neutrophils (%) (Auto) 48 % (31-73) Lymphocytes (%) (Auto) 45 % (24-48) Monocytes (%) (Auto) 5 % (0-9) Eosinophils (%) (Auto) 1 % (0-3) Basophils (%) (Auto) 1 % (0-3) Neutrophils # (Auto) 6.1 x10^3uL (1.8-7.7) Lymphocytes # (Auto) 5.8 x10^3/uL (1.0-4.8) Monocytes # (Auto) 0.6 x10^3/uL (0.0-1.1) Eosinophils # (Auto) 0.1 x10^3/uL (0.0-0.7) Basophils # (Auto) 0.1 x10^3/uL (0.0-0.2) Prothrombin Time 12.5 SEC (11.7-14.0) Prothromb Time International Ratio 1.0 (0.8-1.1) Activated Partial Thromboplast Time 24 SEC (24-38) Sodium Level 141 mmol/L (136-145) 139 mmol/L (136-145) Potassium Level 2.7 mmol/L (3.5-5.1) 5.6 mmol/L (3.5-5.1) Chloride Level 101 mmol/L (98-107) 106 mmol/L (98-107) Carbon Dioxide Level 16 mmol/L (21-32) 24 mmol/L (21-32) Anion Gap 24 (6-14) 9 (6-14) Blood Urea Nitrogen 17 mg/dL (8-26) 14 mg/dL (8-26) Creatinine 1.5 mg/dL (0.7-1.3) 1.1 mg/dL (0.7-1.3) Estimated GFR (Cockcroft-Gault) 47.7 68.3 BUN/Creatinine Ratio 11 (6-20) Glucose Level 224 mg/dL (70-99) 224 mg/dL (70-99) Calcium Level 9.0 mg/dL (8.5-10.1) 7.2 mg/dL (8.5-10.1) Magnesium Level 2.0 mg/dL (1.8-2.4) Total Bilirubin 0.4 mg/dL (0.2-1.0) Aspartate Amino Transf (AST/SGOT) 190 U/L (15-37) Alanine Aminotransferase (ALT/SGPT) 221 U/L (16-63) Alkaline Phosphatase 55 U/L (46-116) Creatine Kinase 178 U/L (39-308) Creatine Kinase MB (Mass) 2.1 ng/mL (0.0-3.6) Creatine Kinase MB Relative Index 1.2 % (0-4) Troponin I Quantitative < 0.017 ng/mL (0.000-0.055) OH-Yzo-M-Type Natriuretic Peptide 175 pg/mL (0-124) Total Protein 7.0 g/dL (6.4-8.2) Albumin 4.0 g/dL (3.4-5.0) Albumin/Globulin Ratio 1.3 (1.0-1.7) Lipase 131 U/L (73-393) O2 Saturation 98 % (92-99) Arterial Blood pH 7.26 (7.35-7.45) Arterial Blood pCO2 at Patient Temp 37 mmHg (35-46) Arterial Blood pO2 at Patient Temp 161 mmHg (65-108) Arterial Blood HCO3 16 mmol/L (21-28) Arterial Blood Base Excess -10 mmol/L (-3-3) FiO2 80% Glucose (Fingerstick) 169 mg/dL (70-99) Test 02/23/19 01:10 02/23/19 04:50 02/23/19 08:28 White Blood Count 11.7 x10^3/uL (4.0-11.0) Red Blood Count 3.36 x10^6/uL (4.30-5.70) Hemoglobin 10.1 g/dL (13.0-17.5) Hematocrit 30.7 % (39.0-53.0) Mean Corpuscular Volume 92 fL (79-100) Mean Corpuscular Hemoglobin 30 pg (25-35) Mean Corpuscular Hemoglobin Concent 33 g/dL (31-37) Red Cell Distribution Width 14.0 % (11.5-14.5) Platelet Count 169 x10^3/uL (140-400) Neutrophils (%) (Auto) 70 % (31-73) Lymphocytes (%) (Auto) 21 % (24-48) Monocytes (%) (Auto) 8 % (0-9) Eosinophils (%) (Auto) 0 % (0-3) Basophils (%) (Auto) 0 % (0-3) Neutrophils # (Auto) 8.2 x10^3uL (1.8-7.7) Lymphocytes # (Auto) 2.5 x10^3/uL (1.0-4.8) Monocytes # (Auto) 1.0 x10^3/uL (0.0-1.1) Eosinophils # (Auto) 0.0 x10^3/uL (0.0-0.7) Basophils # (Auto) 0.1 x10^3/uL (0.0-0.2) Prothrombin Time 13.4 SEC (11.7-14.0) Prothromb Time International Ratio 1.1 (0.8-1.1) Activated Partial Thromboplast Time 29 SEC (24-38) Sodium Level 144 mmol/L (136-145) Potassium Level 4.1 mmol/L (3.5-5.1) Chloride Level 108 mmol/L (98-107) Carbon Dioxide Level 24 mmol/L (21-32) Anion Gap 12 (6-14) Blood Urea Nitrogen 13 mg/dL (8-26) Creatinine 0.9 mg/dL (0.7-1.3) Estimated GFR (Cockcroft-Gault) 86.1 Glucose Level 115 mg/dL (70-99) Calcium Level 7.3 mg/dL (8.5-10.1) Ionized Calcium 1.01 mmol/L (1.13-1.32) Phosphorus Level 1.9 mg/dL (2.6-4.7) Magnesium Level 2.2 mg/dL (1.8-2.4) Urine Collection Type Unknown Urine Color Yellow Urine Clarity Clear Urine pH 6.0 Urine Specific [place] >=1.030 Urine Protein 30 mg/dL (NEG-TRACE) Urine Glucose (UA) Negative mg/dL (NEG) Urine Ketones (Stick) Negative mg/dL (NEG) Urine Blood Moderate (NEG) Urine Nitrite Negative (NEG) Urine Bilirubin Negative (NEG) Urine Urobilinogen Dipstick 0.2 mg/dL (0.2 mg/dL) Urine Leukocyte Esterase Negative (NEG) Urine RBC 20-40 /HPF (0-2) Urine WBC Occ /HPF (0-4) Urine Squamous Epithelial Cells Few /LPF Urine Bacteria Few /HPF (0-FEW) Urine Opiates Screen Pos (NEG) Urine Methadone Screen Neg (NEG) Urine Barbiturates Neg (NEG) Urine Phencyclidine Screen Neg (NEG) Urine Amphetamine/Methamphetamine Neg (NEG) Urine Benzodiazepines Screen Pos (NEG) Urine Cocaine Screen Neg (NEG) Urine Cannabinoids Screen Neg (NEG) Urine Ethyl Alcohol Neg (NEG) Glucose (Fingerstick) 198 mg/dL (70-99) Assessment and Plan Assessmemt and Plan Problems Medical Problems: (1) Cardiac arrest Status: Acute (2) Dehydration Status: Acute (3) Ventricular fibrillation Status: Acute Comment Review of Relevant I have reviewed the following items taylor (where applicable) has been applied. Labs Laboratory Tests Test 02/22/19 16:10 02/22/19 17:41 02/22/19 20:40 02/22/19 22:59 White Blood Count 12.8 x10^3/uL (4.0-11.0) Red Blood Count 3.99 x10^6/uL (4.30-5.70) Hemoglobin 12.0 g/dL (13.0-17.5) Hematocrit 36.7 % (39.0-53.0) Mean Corpuscular Volume 92 fL (79-100) Mean Corpuscular Hemoglobin 30 pg (25-35) Mean Corpuscular Hemoglobin Concent 33 g/dL (31-37) Red Cell Distribution Width 13.9 % (11.5-14.5) Platelet Count 252 x10^3/uL (140-400) Neutrophils (%) (Auto) 48 % (31-73) Lymphocytes (%) (Auto) 45 % (24-48) Monocytes (%) (Auto) 5 % (0-9) Eosinophils (%) (Auto) 1 % (0-3) Basophils (%) (Auto) 1 % (0-3) Neutrophils # (Auto) 6.1 x10^3uL (1.8-7.7) Lymphocytes # (Auto) 5.8 x10^3/uL (1.0-4.8) Monocytes # (Auto) 0.6 x10^3/uL (0.0-1.1) Eosinophils # (Auto) 0.1 x10^3/uL (0.0-0.7) Basophils # (Auto) 0.1 x10^3/uL (0.0-0.2) Prothrombin Time 12.5 SEC (11.7-14.0) Prothromb Time International Ratio 1.0 (0.8-1.1) Activated Partial Thromboplast Time 24 SEC (24-38) Sodium Level 141 mmol/L (136-145) 139 mmol/L (136-145) Potassium Level 2.7 mmol/L (3.5-5.1) 5.6 mmol/L (3.5-5.1) Chloride Level 101 mmol/L (98-107) 106 mmol/L (98-107) Carbon Dioxide Level 16 mmol/L (21-32) 24 mmol/L (21-32) Anion Gap 24 (6-14) 9 (6-14) Blood Urea Nitrogen 17 mg/dL (8-26) 14 mg/dL (8-26) Creatinine 1.5 mg/dL (0.7-1.3) 1.1 mg/dL (0.7-1.3) Estimated GFR (Cockcroft-Gault) 47.7 68.3 BUN/Creatinine Ratio 11 (6-20) Glucose Level 224 mg/dL (70-99) 224 mg/dL (70-99) Calcium Level 9.0 mg/dL (8.5-10.1) 7.2 mg/dL (8.5-10.1) Magnesium Level 2.0 mg/dL (1.8-2.4) Total Bilirubin 0.4 mg/dL (0.2-1.0) Aspartate Amino Transf (AST/SGOT) 190 U/L (15-37) Alanine Aminotransferase (ALT/SGPT) 221 U/L (16-63) Alkaline Phosphatase 55 U/L (46-116) Creatine Kinase 178 U/L (39-308) Creatine Kinase MB (Mass) 2.1 ng/mL (0.0-3.6) Creatine Kinase MB Relative Index 1.2 % (0-4) Troponin I Quantitative < 0.017 ng/mL (0.000-0.055) AN-Mei-T-Type Natriuretic Peptide 175 pg/mL (0-124) Total Protein 7.0 g/dL (6.4-8.2) Albumin 4.0 g/dL (3.4-5.0) Albumin/Globulin Ratio 1.3 (1.0-1.7) Lipase 131 U/L (73-393) O2 Saturation 98 % (92-99) Arterial Blood pH 7.26 (7.35-7.45) Arterial Blood pCO2 at Patient Temp 37 mmHg (35-46) Arterial Blood pO2 at Patient Temp 161 mmHg (65-108) Arterial Blood HCO3 16 mmol/L (21-28) Arterial Blood Base Excess -10 mmol/L (-3-3) FiO2 80% Glucose (Fingerstick) 169 mg/dL (70-99) Test 02/23/19 01:10 02/23/19 04:50 02/23/19 08:28 White Blood Count 11.7 x10^3/uL (4.0-11.0) Red Blood Count 3.36 x10^6/uL (4.30-5.70) Hemoglobin 10.1 g/dL (13.0-17.5) Hematocrit 30.7 % (39.0-53.0) Mean Corpuscular Volume 92 fL (79-100) Mean Corpuscular Hemoglobin 30 pg (25-35) Mean Corpuscular Hemoglobin Concent 33 g/dL (31-37) Red Cell Distribution Width 14.0 % (11.5-14.5) Platelet Count 169 x10^3/uL (140-400) Neutrophils (%) (Auto) 70 % (31-73) Lymphocytes (%) (Auto) 21 % (24-48) Monocytes (%) (Auto) 8 % (0-9) Eosinophils (%) (Auto) 0 % (0-3) Basophils (%) (Auto) 0 % (0-3) Neutrophils # (Auto) 8.2 x10^3uL (1.8-7.7) Lymphocytes # (Auto) 2.5 x10^3/uL (1.0-4.8) Monocytes # (Auto) 1.0 x10^3/uL (0.0-1.1) Eosinophils # (Auto) 0.0 x10^3/uL (0.0-0.7) Basophils # (Auto) 0.1 x10^3/uL (0.0-0.2) Prothrombin Time 13.4 SEC (11.7-14.0) Prothromb Time International Ratio 1.1 (0.8-1.1) Activated Partial Thromboplast Time 29 SEC (24-38) Sodium Level 144 mmol/L (136-145) Potassium Level 4.1 mmol/L (3.5-5.1) Chloride Level 108 mmol/L (98-107) Carbon Dioxide Level 24 mmol/L (21-32) Anion Gap 12 (6-14) Blood Urea Nitrogen 13 mg/dL (8-26) Creatinine 0.9 mg/dL (0.7-1.3) Estimated GFR (Cockcroft-Gault) 86.1 Glucose Level 115 mg/dL (70-99) Calcium Level 7.3 mg/dL (8.5-10.1) Ionized Calcium 1.01 mmol/L (1.13-1.32) Phosphorus Level 1.9 mg/dL (2.6-4.7) Magnesium Level 2.2 mg/dL (1.8-2.4) Urine Collection Type Unknown Urine Color Yellow Urine Clarity Clear Urine pH 6.0 Urine Specific [place] >=1.030 Urine Protein 30 mg/dL (NEG-TRACE) Urine Glucose (UA) Negative mg/dL (NEG) Urine Ketones (Stick) Negative mg/dL (NEG) Urine Blood Moderate (NEG) Urine Nitrite Negative (NEG) Urine Bilirubin Negative (NEG) Urine Urobilinogen Dipstick 0.2 mg/dL (0.2 mg/dL) Urine Leukocyte Esterase Negative (NEG) Urine RBC 20-40 /HPF (0-2) Urine WBC Occ /HPF (0-4) Urine Squamous Epithelial Cells Few /LPF Urine Bacteria Few /HPF (0-FEW) Urine Opiates Screen Pos (NEG) Urine Methadone Screen Neg (NEG) Urine Barbiturates Neg (NEG) Urine Phencyclidine Screen Neg (NEG) Urine Amphetamine/Methamphetamine Neg (NEG) Urine Benzodiazepines Screen Pos (NEG) Urine Cocaine Screen Neg (NEG) Urine Cannabinoids Screen Neg (NEG) Urine Ethyl Alcohol Neg (NEG) Glucose (Fingerstick) 198 mg/dL (70-99) Laboratory Tests Test 02/22/19 16:10 5/28/19 17:41 02/22/19 20:40 02/22/19 22:59 White Blood Count 12.8 x10^3/uL (4.0-11.0) Red Blood Count 3.99 x10^6/uL (4.30-5.70) Hemoglobin 12.0 g/dL (13.0-17.5) Hematocrit 36.7 % (39.0-53.0) Mean Corpuscular Volume 92 fL (79-100) Mean Corpuscular Hemoglobin 30 pg (25-35) Mean Corpuscular Hemoglobin Concent 33 g/dL (31-37) Red Cell Distribution Width 13.9 % (11.5-14.5) Platelet Count 252 x10^3/uL (140-400) Neutrophils (%) (Auto) 48 % (31-73) Lymphocytes (%) (Auto) 45 % (24-48) Monocytes (%) (Auto) 5 % (0-9) Eosinophils (%) (Auto) 1 % (0-3) Basophils (%) (Auto) 1 % (0-3) Neutrophils # (Auto) 6.1 x10^3uL (1.8-7.7) Lymphocytes # (Auto) 5.8 x10^3/uL (1.0-4.8) Monocytes # (Auto) 0.6 x10^3/uL (0.0-1.1) Eosinophils # (Auto) 0.1 x10^3/uL (0.0-0.7) Basophils # (Auto) 0.1 x10^3/uL (0.0-0.2) Prothrombin Time 12.5 SEC (11.7-14.0) Prothromb Time International Ratio 1.0 (0.8-1.1) Activated Partial Thromboplast Time 24 SEC (24-38) Sodium Level 141 mmol/L (136-145) 139 mmol/L (136-145) Potassium Level 2.7 mmol/L (3.5-5.1) 5.6 mmol/L (3.5-5.1) Chloride Level 101 mmol/L (98-107) 106 mmol/L (98-107) Carbon Dioxide Level 16 mmol/L (21-32) 24 mmol/L (21-32) Anion Gap 24 (6-14) 9 (6-14) Blood Urea Nitrogen 17 mg/dL (8-26) 14 mg/dL (8-26) Creatinine 1.5 mg/dL (0.7-1.3) 1.1 mg/dL (0.7-1.3) Estimated GFR (Cockcroft-Gault) 47.7 68.3 BUN/Creatinine Ratio 11 (6-20) Glucose Level 224 mg/dL (70-99) 224 mg/dL (70-99) Calcium Level 9.0 mg/dL (8.5-10.1) 7.2 mg/dL (8.5-10.1) Magnesium Level 2.0 mg/dL (1.8-2.4) Total Bilirubin 0.4 mg/dL (0.2-1.0) Aspartate Amino Transf (AST/SGOT) 190 U/L (15-37) Alanine Aminotransferase (ALT/SGPT) 221 U/L (16-63) Alkaline Phosphatase 55 U/L (46-116) Creatine Kinase 178 U/L (39-308) Creatine Kinase MB (Mass) 2.1 ng/mL (0.0-3.6) Creatine Kinase MB Relative Index 1.2 % (0-4) Troponin I Quantitative < 0.017 ng/mL (0.000-0.055) AS-Jci-I-Type Natriuretic Peptide 175 pg/mL (0-124) Total Protein 7.0 g/dL (6.4-8.2) Albumin 4.0 g/dL (3.4-5.0) Albumin/Globulin Ratio 1.3 (1.0-1.7) Lipase 131 U/L (73-393) O2 Saturation 98 % (92-99) Arterial Blood pH 7.26 (7.35-7.45) Arterial Blood pCO2 at Patient Temp 37 mmHg (35-46) Arterial Blood pO2 at Patient Temp 161 mmHg (65-108) Arterial Blood HCO3 16 mmol/L (21-28) Arterial Blood Base Excess -10 mmol/L (-3-3) FiO2 80% Glucose (Fingerstick) 169 mg/dL (70-99) Test 02/23/19 01:10 02/23/19 04:50 02/23/19 08:28 White Blood Count 11.7 x10^3/uL (4.0-11.0) Red Blood Count 3.36 x10^6/uL (4.30-5.70) Hemoglobin 10.1 g/dL (13.0-17.5) Hematocrit 30.7 % (39.0-53.0) Mean Corpuscular Volume 92 fL (79-100) Mean Corpuscular Hemoglobin 30 pg (25-35) Mean Corpuscular Hemoglobin Concent 33 g/dL (31-37) Red Cell Distribution Width 14.0 % (11.5-14.5) Platelet Count 169 x10^3/uL (140-400) Neutrophils (%) (Auto) 70 % (31-73) Lymphocytes (%) (Auto) 21 % (24-48) Monocytes (%) (Auto) 8 % (0-9) Eosinophils (%) (Auto) 0 % (0-3) Basophils (%) (Auto) 0 % (0-3) Neutrophils # (Auto) 8.2 x10^3uL (1.8-7.7) Lymphocytes # (Auto) 2.5 x10^3/uL (1.0-4.8) Monocytes # (Auto) 1.0 x10^3/uL (0.0-1.1) Eosinophils # (Auto) 0.0 x10^3/uL (0.0-0.7) Basophils # (Auto) 0.1 x10^3/uL (0.0-0.2) Prothrombin Time 13.4 SEC (11.7-14.0) Prothromb Time International Ratio 1.1 (0.8-1.1) Activated Partial Thromboplast Time 29 SEC (24-38) Sodium Level 144 mmol/L (136-145) Potassium Level 4.1 mmol/L (3.5-5.1) Chloride Level 108 mmol/L (98-107) Carbon Dioxide Level 24 mmol/L (21-32) Anion Gap 12 (6-14) Blood Urea Nitrogen 13 mg/dL (8-26) Creatinine 0.9 mg/dL (0.7-1.3) Estimated GFR (Cockcroft-Gault) 86.1 Glucose Level 115 mg/dL (70-99) Calcium Level 7.3 mg/dL (8.5-10.1) Ionized Calcium 1.01 mmol/L (1.13-1.32) Phosphorus Level 1.9 mg/dL (2.6-4.7) Magnesium Level 2.2 mg/dL (1.8-2.4) Urine Collection Type Unknown Urine Color Yellow Urine Clarity Clear Urine pH 6.0 Urine Specific [place] >=1.030 Urine Protein 30 mg/dL (NEG-TRACE) Urine Glucose (UA) Negative mg/dL (NEG) Urine Ketones (Stick) Negative mg/dL (NEG) Urine Blood Moderate (NEG) Urine Nitrite Negative (NEG) Urine Bilirubin Negative (NEG) Urine Urobilinogen Dipstick 0.2 mg/dL (0.2 mg/dL) Urine Leukocyte Esterase Negative (NEG) Urine RBC 20-40 /HPF (0-2) Urine WBC Occ /HPF (0-4) Urine Squamous Epithelial Cells Few /LPF Urine Bacteria Few /HPF (0-FEW) Urine Opiates Screen Pos (NEG) Urine Methadone Screen Neg (NEG) Urine Barbiturates Neg (NEG) Urine Phencyclidine Screen Neg (NEG) Urine Amphetamine/Methamphetamine Neg (NEG) Urine Benzodiazepines Screen Pos (NEG) Urine Cocaine Screen Neg (NEG) Urine Cannabinoids Screen Neg (NEG) Urine Ethyl Alcohol Neg (NEG) Glucose (Fingerstick) 198 mg/dL (70-99) Medications Current Medications Fentanyl Citrate (Fentanyl 2ml Vial) 100 mcg STK-MED ONCE .ROUTE ; Start 02/22/19 at 16:15; Stop 02/22/19 at 16:16; Status DC Sodium Chloride 1,000 ml @ 1,000 mls/hr 1X STAT IV Last administered on 02/22/19at 16:22; Start 02/22/19 at 16:21; Stop 02/22/19 at 17:20; Status DC Sodium Chloride 1,000 ml @ 1,000 mls/hr 1X ONCE IV Last administered on 02/22/19at 16:14; Start 02/22/19 at 16:30; Stop 02/22/19 at 17:29; Status DC Sodium Chloride 1,000 ml @ 1,000 mls/hr 1X ONCE IV Last administered on 02/22/19at 16:14; Start 02/22/19 at 16:30; Stop 02/22/19 at 17:29; Status DC Sodium Chloride 1,000 ml @ 1,000 mls/hr 1X ONCE IV Last administered on 02/22/19at 16:22; Start 02/22/19 at 16:30; Stop 02/22/19 at 17:29; Status DC Morphine Sulfate (Morphine Sulfate) 4 mg 1X ONCE IV Last administered on 02/22/19at 16:27; Start 02/22/19 at 16:30; Stop 02/22/19 at 16:31; Status DC Propofol (Diprivan) 200 mg 1X ONCE IV ; Start 02/22/19 at 16:45; Stop 02/22/19 at 16:46; Status DC Amiodarone HCl 150 mg/Dextrose 103 ml @ 618 mls/hr 1X ONCE IV ; Start 02/22/19 at 16:45; Stop 02/22/19 at 16:54; Status DC Amiodarone HCl 900 mg/Dextrose 518 ml @ 33 mls/hr CONT PRN IV SEE I/O RECORD; Start 02/22/19 at 16:45 Propofol 100 ml @ As Directed STK-MED ONCE IV ; Start 02/22/19 at 16:50; Stop 02/22/19 at 16:51; Status DC Potassium Chloride 40 meq/ Dextrose 1,020 ml @ 75 mls/hr 1X ONCE IV Last administered on 02/22/19at 17:50; Start 02/22/19 at 17:15; Stop 02/23/19 at 06:50; Status DC Etomidate (Amidate) 20 mg STK-MED ONCE IV ; Start 02/22/19 at 17:12; Stop 02/22/19 at 17:13; Status DC Rocuronium [place] (Zemuron) 50 mg STK-MED ONCE .ROUTE ; Start 02/22/19 at 17:12; Stop 02/22/19 at 17:13; Status DC Labetalol HCl (Normodyne Iv Push) 20 mg 1X ONCE IVP ; Start 02/22/19 at 17:30; Stop 02/22/19 at 17:31; Status DC Potassium Chloride (KCl Oral Soln) 80 meq 1X ONCE NG Last administered on 02/22/19at 17:29; Start 02/22/19 at 17:30; Stop 02/22/19 at 17:31; Status DC Ondansetron HCl (Zofran) 4 mg PRN Q8HRS PRN IV NAUSEA/VOMITING; Start 02/22/19 at 17:15; Stop 02/23/19 at 17:14 Sodium Chloride 1,000 ml @ 75 mls/hr [id number] IV ; Start 02/22/19 at 17:15; Stop 02/23/19 at 06:26; Status DC Fentanyl Citrate (Fentanyl 2ml Vial) 100 mcg STK-MED ONCE .ROUTE ; Start 02/22/19 at 17:37; Stop 02/22/19 at 17:38; Status DC Midazolam HCl (Versed) 5 mg STK-MED ONCE .ROUTE ; Start 02/22/19 at 17:58; Stop 02/22/19 at 17:59; Status DC Sodium Bicarbonate (Sodium Bicarb Adult 8.4% Syr) 50 meq STK-MED ONCE .ROUTE ; Start 02/22/19 at 18:08; Stop 02/22/19 at 18:09; Status DC Vecuronium [place] (Norcuron Bolus) 10 mg STK-MED ONCE IV ; Start 02/22/19 at 19:25; Stop 02/22/19 at 19:26; Status DC Fentanyl Citrate (Fentanyl 2ml Vial) 100 mcg 1X ONCE IV ; Start 02/22/19 at 19:30; Stop 02/22/19 at 19:31; Status DC Midazolam HCl (Versed) 2 mg 1X ONCE IV Last administered on 02/22/19at 21:01; Start 02/22/19 at 19:30; Stop 02/22/19 at 19:32; Status DC Magnesium Sulfate/ Dextrose 100 ml @ 100 mls/hr 1X ONCE IV Last administered on 02/22/19at 21:09; Start 02/22/19 at 19:30; Stop 02/22/19 at 20:34; Status DC Buspirone HCl (Buspar) 30 mg Q8H NG Last administered on 02/23/19at 04:02; Start 02/22/19 at 19:30; Stop 02/24/19 at 11:31 Acetaminophen (Tylenol) 650 mg Q4H NG Last administered on 02/23/19at 04:04; Start 02/22/19 at 19:30 Artificial Tears (Artificial Tears) 1 drop Q6HRS OU Last administered on 02/23/19at 06:24; Start 02/23/19 at 00:00 Artificial Tears (Artificial Tears) 1 drop PRN Q15MIN PRN OU DRY EYE; Start 02/22/19 at 19:30 Heparin Sodium (Porcine) (Heparin Sodium) 5,000 unit BID SQ Last administered on 02/22/19 21:24; Start 02/22/19 at 21:00 Fentanyl Citrate 30 ml @ 0 mls/hr CONT PRN IV PER PROTOCOL. Last administered on 02/23/19 06:58; Start 02/22/19 at 19:30 Propofol 100 ml @ 0 mls/hr CONT PRN IV PER PROTOCOL. Last administered on 02/22/19 21:11; Start 02/22/19 at 19:30 Midazolam HCl 100 ml @ 0 mls/hr CONT PRN IV PER PROTOCOL. Last administered on 02/22/19 23:00; Start 02/22/19 at 19:30 Vecuronium [place] (Norcuron Bolus) 8 mg PRN Q1HR PRN IV SHIVERING Last administered on 02/23/19 06:27; Start 02/22/19 at 19:30 Potassium Chloride/Water 100 ml @ 100 mls/hr Q1H IV Last administered on 02/22/19 21:08; Start 02/22/19 at 20:00; Stop 02/22/19 at 23:59; Status DC Potassium Chloride/Dextrose/ Sod Cl 1,000 ml @ 100 mls/hr Q10H IV ; Start 02/22/19 at 19:45; Stop 02/23/19 at 05:34; Status DC Fentanyl Citrate (Fentanyl 2ml Vial) 100 mcg 1X ONCE IV Last administered on 02/22/19 16:16; Start 02/22/19 at 20:30; Stop 02/22/19 at 20:34; Status DC Etomidate (Amidate) 20 mg 1X ONCE IV Last administered on 02/22/19 16:31; Start 02/22/19 at 20:30; Stop 02/22/19 at 20:34; Status DC Rocuronium [place] (Zemuron) 50 mg 1X ONCE IV Last administered on 02/22/19 16:32; Start 02/22/19 at 20:30; Stop 02/22/19 at 20:34; Status DC Sodium Bicarbonate (Sodium Bicarb Adult 8.4% Syr) 50 meq 1X ONCE IV Last administered on 02/22/19 18:11; Start 02/22/19 at 20:45; Stop 02/22/19 at 20:46; Status DC Fentanyl Citrate (Fentanyl 2ml Vial) 100 mcg 1X ONCE IV Last administered on 02/22/19at 17:39; Start 02/22/19 at 21:30; Stop 02/22/19 at 21:31; Status DC Midazolam HCl (Versed) 4 mg 1X ONCE IV Last administered on 02/22/19at 17:59; Start 02/22/19 at 21:30; Stop 02/22/19 at 21:31; Status DC Insulin Human Regular 150 unit/ Sodium Chloride 151.5 ml @ 0 mls/hr CONT PRN IV SEE I/O RECORD; Start 02/22/19 at 22:15 Sodium Chloride 1,000 ml @ 150 mls/hr Q6H40M IV Last administered on 02/23/19at 05:36; Start 02/22/19 at 22:30 Sodium Phosphate 10 mmol/Dextrose 253.3333 ml @ 64.167 m... 1X ONCE IV Last administered on 02/23/19at 06:24; Start 02/23/19 at 04:00; Stop 02/23/19 at 07:56; Status DC Magnesium Sulfate 50 ml @ 25 mls/hr 1X ONCE IV Last administered on 02/23/19at 04:04; Start 02/23/19 at 04:00; Stop 02/23/19 at 05:59; Status DC Iohexol (Omnipaque 350 Mg/ml) 100 ml 1X ONCE IV ; Start 02/23/19 at 09:00; Stop 02/23/19 at 09:01 Info (CONTRAST GIVEN -- Rx MONITORING) 1 each PRN DAILY PRN MC SEE COMMENTS; Start 02/23/19 at 08:45; Stop 02/25/19 at 08:44 Active Scripts Active Reported Quinapril Hcl 20 Mg Tablet 1 Tab PO DAILY Pravastatin Sodium 80 Mg Tablet 1 Tab PO DAILY Vitals/I & O Vital Sign - Last 24 Hours 02/22/19 02/22/19 02/22/19 02/22/19 16:10 16:15 16:16 16:20 Pulse 160 160 128 Resp 26 B/P (MAP) 102/75 (84) 128/84 (99) Pulse Ox 96 100 O2 Delivery Bag Valve Mask Bag Valve Mask Bag Valve Mask Bag Valve Mask 02/22/19 02/22/19 02/22/1902/22/19 16:25 16:27 16:30 16:35 Pulse 126 134 128 Resp 26 B/P (MAP) 171/73 (105) 171/76 (107) 255/101 (152) Pulse Ox 100 97 100 99 O2 Delivery Bag Valve Mask Bag Valve Mask Bag Valve Mask Bag Valve Mask 02/22/19 02/22/19 02/22/19 02/22/19 16:40 16:45 16:45 16:50 Pulse 128 100 120 B/P (MAP) 221/96 (137) 147/70 (95) 174/76 (108) Pulse Ox 100 100 100 O2 Delivery Bag Valve Mask Bag Valve Mask Ventilator Ventilator 02/22/19 02/22/19 02/22/19 02/22/19 16:50 16:55 17:00 17:39 Pulse 140 136 Resp 20 B/P (MAP) 238/127 (164) 235/108 (150) Pulse Ox 100 100 100 O2 Delivery Ventilator Ventilator Ventilator Ventilator 02/22/19 02/22/19 02/22/19 02/22/19 17:43 17:48 17:53 17:58 Pulse 102 82 87 91 B/P (MAP) 137/97 (110) 119/63 (81) 138/75 (96) 145/62 (89) Pulse Ox 100 99 100 99 O2 Delivery Ventilator Ventilator Ventilator Ventilator 02/22/19 02/22/19 02/22/19 02/22/19 18:03 18:06 18:08 18:10 Pulse 80 79 76 75 B/P (MAP) 101/54 (70) 100/56 (71) 97/55 (69) 92/57 (69) Pulse Ox 100 100 100 100 O2 Delivery Ventilator Ventilator Ventilator Ventilator 02/22/19 02/22/19 02/22/19 02/22/19 18:12 18:15 18:18 18:30 Pulse 74 88 82 B/P (MAP) 99/62 (74) 146/70 (95) 124/66 (85) Pulse Ox 100 100 100 100 O2 Delivery Ventilator Ventilator Ventilator Ventilator 02/22/19 02/22/19 02/22/19 02/22/19 18:33 18:44 19:05 19:15 Temp 93.5 Pulse 91 74 Resp 16 B/P (MAP) 141/78 (99) 114/63 (80) Pulse Ox 100 100 100 95 O2 Delivery Ventilator Ventilator Ventilator Ventilator 02/22/19 02/22/19 02/22/19 02/22/19 19:30 19:45 20:00 20:15 Temp 94.4 94.8 92.1 93.5 93.5 Pulse 66 Resp 16 16 16 16 B/P (MAP) 131/78 (95) Pulse Ox 100 100 100 100 O2 Delivery Ventilator Ventilator Ventilator Ventilator 02/22/19 02/22/19 02/22/19 02/22/19 20:15 20:15 20:30 20:30 Temp 93.5 93.5 93.5 93.5 Pulse 56 Resp 16 16 16 B/P (MAP) 120/71 (87) Pulse Ox 100 100 100 O2 Delivery Mechanical Ventilator Ventilator Ventilator Ventilator 02/22/19 02/22/19 02/22/19 02/22/19 20:45 20:45 20:47 21:00 Temp 93.5 93.2 93.5 93.5 93.5 Pulse 54 58 Resp 16 16 16 B/P (MAP) 119/74 (89) 135/66 (89) Pulse Ox 100 100 100 100 O2 Delivery Ventilator Ventilator Ventilator Ventilator 02/22/19 02/22/19 02/22/19 02/22/19 21:00 21:12 21:15 21:30 Temp 92.3 91.8 91.4 Resp 16 16 16 Pulse Ox 100 100 100 100 O2 Delivery Ventilator Ventilator Ventilator Ventilator 02/22/19 02/22/19 02/22/19 02/23/19 22:00 22:00 23:00 00:00 Temp 91.4 92.3 90.3 91.4 90.3 Pulse 50 48 Resp 16 16 16 B/P (MAP) 92/58 (69) 101/57 (72) Pulse Ox 100 100 100 O2 Delivery Ventilator Ventilator Ventilator Mechanical Ventilator 02/23/19 02/23/19 02/23/19 02/23/19 00:01 00:10 01:01 01:01 Temp 90.5 93.5 91.2 93.5 Pulse 54 Resp 16 16 16 B/P (MAP) 119/74 (89) Pulse Ox 100 100 100 100 O2 Delivery Ventilator Ventilator Ventilator Ventilator 02/23/19 02/23/19 02/23/19 02/23/19 02:00 02:00 02:28 02:58 Temp 92.8 Pulse 48 Resp 16 16 B/P (MAP) 94/67 (76) Pulse Ox 100 100 100 100 O2 Delivery Ventilator Ventilator Ventilator Ventilator 02/23/19 02/23/19 02/23/19 02/23/19 03:00 03:01 03:20 04:00 Temp 92.9 92.3 Pulse 47 Resp 16 16 16 B/P (MAP) 95/64 (74) Pulse Ox 100 100 100 100 O2 Delivery Ventilator Ventilator Ventilator Ventilator 02/23/19 02/23/19 02/23/19 02/23/19 04:00 04:00 04:59 05:00 Temp 90.8 Pulse 42 40 Resp 16 16 16 B/P (MAP) 88/62 (71) 83/57 (66) Pulse Ox 100 100 100 O2 Delivery Mechanical Ventilator Ventilator Ventilator Ventilator 02/23/19 02/23/19 02/23/19 06:00 06:00 06:24 Temp 91.2 Pulse 44 Resp 16 16 B/P (MAP) 95/53 (67) Pulse Ox 100 100 100 O2 Delivery Ventilator Ventilator Ventilator Intake and Output 02/22/19 02/22/19 02/23/19 14:59 22:59 06:59 Intake Total 4000 ml 1573.9 ml Output Total 1325 ml 900 ml Balance 2675 ml 673.9 ml AMINA DEL REAL MD February 23, 2019 08:49
[2019-02-23] MEDS ORDERED: IOHEXOL 350 MG/ML 100 ML VIAL. IV ONE (09:00)
--- NOTE | 2019-02-23 09:14 | CARD ---
MR#: [id number] Date of Study: 02/23/2019 Ordering Physician: RENU LARES, Referring Physician: BO RINCON Tech: Cesilia Matthews [facility] APPROVED REPORT EXAM: Two-dimensional and M-mode echocardiogram with Doppler and color Doppler. Other Information Quality : GoodHR: 40bpm Rhythm : Bradycardia INDICATION Cardiac Arrest 2D DIMENSIONS RVDd2.8 (2.9-3.5cm)Left Atrium(2D)3.2 (1.6-4.0cm) IVSd1.1 (0.7-1.1cm)Aortic Root(2D)2.7 (2.0-3.7cm) LVDd3.4 (3.9-5.9cm)LVOT Diameter1.9 (1.8-2.4cm) PWd0.9 (0.7-1.1cm)LVDs2.4 (2.5-4.0cm) FS (%) 28.0 %SV26.1 ml LVEF(%)55.4 (>50%) Aortic Valve AoV Peak Mauri.84.9cm/sAoV VTI21.2cm AO Peak GR.2.9mmHgLVOT VTI 15.91cm AO Mean GR.1mmHgAVA (VTI)2.20cm2 Mitral Valve MV E Icxaspyu59.6cm/sMV DECEL [id number] MV A Eumbpcxr82.1cm/sE/A Ratio1.4 MV A [id number] Tricuspid Valve TR P. Fgfjbwib853ky/sRAP VIDSNWGK2hgVq TR Peak Gr.[id number] LEFT VENTRICLE The left ventricle is normal size. There is normal left ventricular wall thickness. Left ventricle sy stolic function is low normal. The Ejection Fraction is 45-50%. Septal motion consistent with conduct ion abnormality. Otherwise, mild global hypokinesis. Transmitral Doppler flow pattern is abnormal. RIGHT VENTRICLE The right ventricle is mildly dilated. There is normal right ventricular wall thickness. The right ve ntricular systolic function is normal. ATRIA The left atrium size is normal. The right atrium size is normal. The interatrial septum is intact wit h no evidence for an atrial septal defect or patent foramen ovale as noted on 2-D or Doppler imaging. AORTIC VALVE The non coronary cusp is mildly calcified. The aortic valve is trileaflet. Doppler and Color Flow rev ealed no significant aortic regurgitation. There is no significant aortic valvular stenosis. MITRAL VALVE The mitral valve is normal in structure and function. There is no evidence of mitral valve prolapse. There is no mitral valve stenosis. Doppler and Color-flow revealed trace to mild mitral regurgitation . TRICUSPID VALVE The tricuspid valve is normal in structure and function. Doppler and Color Flow revealed mild tricusp id regurgitation. The PA pressure was estimated at 15 mmHg. There is no tricuspid valve prolapse or v egetation. There is no tricuspid valve stenosis. PULMONIC VALVE Doppler and Color Flow revealed no pulmonic valvular regurgitation. There is no pulmonic valvular zeynep nosis. GREAT VESSELS The aortic root is normal in size. The ascending aorta is normal in size. The IVC is normal in size a nd collapses >50% with inspiration. PERICARDIAL EFFUSION There is no evidence of significant pericardial effusion. Critical Notification Critical Value: No <Conclusion> Left ventricle systolic function is low normal. The Ejection Fraction is 45-50%. Likely related to ju nctional rhythm while hypothermic. Septal motion consistent with conduction abnormality. Otherwise, mild global hypokinesis. The right ventricle is mildly dilated. No significant valvular disease. Signed by : Renu Lares, Electronically Approved : 02/23/2019 09:13:33
[2019-02-23 09:18] LABS: BASO % 1 % (0-3); EOS # 0.1 x10^3/uL (0.0-0.7); EOS % 2 % (0-3); HEMATOCRIT 28.1 % (39.0-53.0); HEMOGLOBIN 9.4 g/dL (13.0-17.5); LYMPH # 2.5 x10^3/uL (1.0-4.8); LYMPH % 31 % (24-48); MEAN CORPUSCULAR HEMOGLOBIN 31 pg (25-35); MEAN CORPUSCULAR HGB CONC 34 g/dL (31-37); MEAN CORPUSCULAR VOLUME 92 fL (79-100); MONO # 0.8 x10^3/uL (0.0-1.1); MONO % 9 % (0-9); NEUT # 4.6 x10^3uL (1.8-7.7); NEUT % 57 % (31-73); PLATELET COUNT 142 x10^3/uL (140-400); RED BLOOD COUNT 3.07 x10^6/uL (4.30-5.70); WHITE BLOOD COUNT 8.1 x10^3/uL (4.0-11.0)
[2019-02-23 09:23] LABS: ALBUMIN 2.5 g/dL (3.4-5.0); ALBUMIN/GLOBULIN RATIO 1.5 (1.0-1.7); CALCIUM 6.3 mg/dL (8.5-10.1); CREATININE 0.7 mg/dL (0.7-1.3); MAGNESIUM 2.2 mg/dL (1.8-2.4); PHOSPHORUS 5.7 mg/dL (2.6-4.7); POTASSIUM 3.1 mmol/L (3.5-5.1); TOTAL BILIRUBIN 0.3 mg/dL (0.2-1.0); TOTAL PROTEIN 4.2 g/dL (6.4-8.2)
[2019-02-23] MEDS: HEPARIN for SUB-Q USE 5,000 UNIT/ML VIAL. SQ SCH ×2 (09:26→21:17)
[2019-02-23 09:29] LABS: BASE EXCESS ABG -4 mmol/L (-3-3); HCO3 ABG 18 mmol/L (21-28); PCO2 ABG 24 mmHg (35-46); PO2 ABG 228 mmHg (65-108)
[2019-02-23 09:30] LABS: CORRECTED PCO2 ABG 20 mmHg; CORRECTED PH ABG 7.56; FIO2 ABG 40; SAT O2 ABG 99 % (92-99)
[2019-02-23 09:31] LABS: CORRECTED PO2 ABG 207 mmHg
[2019-02-23] MEDS ORDERED: ATROPINE 1 MG/10 ML DISP.SYRINGE. ONE (09:47)
--- NOTE | 2019-02-23 09:55 | PDOC2 ---
NEUROLOGY CONSULT Date of Admission Date of Admission DATE: 02/23/19 TIME: 09:46 Reason for Consult Reason for Consult: Anoxic encephalopathy Referring Physician Referring Physician: Dr. Linn Source Source: Caregiver (Daughter who is a nurse at ), Chart review History of Present Illness History of Present Illness The patient is a [id number] right-handed male who is running in a 5K race. There was a support vehicle and he took a rest in it and became unresponsive. He was in ventricular fibrillation. He responded to shocks, estimated downtime about 20 minutes. In the emergency department he was restless and agitated so he was sedated and intubated and then placed on hypothermia protocol. He has no prior history of cardiac disease, he does have some hypertension hyperlipidemia. He has not been complaining of any chest pain. There is no history of neurological issues. 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 He likes to run. His was diagnosed with recurrent lung cancer and he is under a lot of stress. Current Medications Current Medications Current Medications Fentanyl Citrate (Fentanyl 2ml Vial) 100 mcg STK-MED ONCE .ROUTE ; Start 02/22/19 at 16:15; Stop 02/22/19 at 16:16; Status DC Sodium Chloride 1,000 ml @ 1,000 mls/hr 1X STAT IV Last administered on 02/22/19at 16:22; Start 02/22/19 at 16:21; Stop 02/22/19 at 17:20; Status DC Sodium Chloride 1,000 ml @ 1,000 mls/hr 1X ONCE IV Last administered on 02/22/19at 16:14; Start 02/22/19 at 16:30; Stop 02/22/19 at 17:29; Status DC Sodium Chloride 1,000 ml @ 1,000 mls/hr 1X ONCE IV Last administered on 02/22/19at 16:14; Start 02/22/19 at 16:30; Stop 02/22/19 at 17:29; Status DC Sodium Chloride 1,000 ml @ 1,000 mls/hr 1X ONCE IV Last administered on 02/22/19at 16:22; Start 02/22/19 at 16:30; Stop 02/22/19 at 17:29; Status DC Morphine Sulfate (Morphine Sulfate) 4 mg 1X ONCE IV Last administered on 02/22/19at 16:27; Start 02/22/19 at 16:30; Stop 02/22/19 at 16:31; Status DC Propofol (Diprivan) 200 mg 1X ONCE IV ; Start 02/22/19 at 16:45; Stop 02/22/19 at 16:46; Status DC Amiodarone HCl 150 mg/Dextrose 103 ml @ 618 mls/hr 1X ONCE IV ; Start 02/22/19 at 16:45; Stop 02/22/19 at 16:54; Status DC Amiodarone HCl 900 mg/Dextrose 518 ml @ 33 mls/hr CONT PRN IV SEE I/O RECORD; Start 02/22/19 at 16:45 Propofol 100 ml @ As Directed STK-MED ONCE IV ; Start 02/22/19 at 16:50; Stop 02/22/19 at 16:51; Status DC Potassium Chloride 40 meq/ Dextrose 1,020 ml @ 75 mls/hr 1X ONCE IV Last administered on 02/22/19at 17:50; Start 02/22/19 at 17:15; Stop 02/23/19 at 06:50; Status DC Etomidate (Amidate) 20 mg STK-MED ONCE IV ; Start 02/22/19 at 17:12; Stop 02/22/19 at 17:13; Status DC Rocuronium Bayard (Zemuron) 50 mg STK-MED ONCE .ROUTE ; Start 02/22/19 at 17:12; Stop 02/22/19 at 17:13; Status DC Labetalol HCl (Normodyne Iv Push) 20 mg 1X ONCE IVP ; Start 02/22/19 at 17:30; Stop 02/22/19 at 17:31; Status DC Potassium Chloride (KCl Oral Soln) 80 meq 1X ONCE NG Last administered on 02/22/19at 17:29; Start 02/22/19 at 17:30; Stop 02/22/19 at 17:31; Status DC Ondansetron HCl (Zofran) 4 mg PRN Q8HRS PRN IV NAUSEA/VOMITING; Start 02/22/19 at 17:15; Stop 02/23/19 at 17:14 Sodium Chloride 1,000 ml @ 75 mls/hr [id number] IV ; Start 02/22/19 at 17:15; Stop 02/23/19 at 06:26; Status DC Fentanyl Citrate (Fentanyl 2ml Vial) 100 mcg STK-MED ONCE .ROUTE ; Start 02/22/19 at 17:37; Stop 02/22/19 at 17:38; Status DC Midazolam HCl (Versed) 5 mg STK-MED ONCE .ROUTE ; Start 02/22/19 at 17:58; Stop 02/22/19 at 17:59; Status DC Sodium Bicarbonate (Sodium Bicarb Adult 8.4% Syr) 50 meq STK-MED ONCE .ROUTE ; Start 02/22/19 at 18:08; Stop 02/22/19 at 18:09; Status DC Vecuronium Bayard (Norcuron Bolus) 10 mg STK-MED ONCE IV ; Start 02/22/19 at 19:25; Stop 02/22/19 at 19:26; Status DC Fentanyl Citrate (Fentanyl 2ml Vial) 100 mcg 1X ONCE IV ; Start 02/22/19 at 19:30; Stop 02/22/19 at 19:31; Status DC Midazolam HCl (Versed) 2 mg 1X ONCE IV Last administered on 02/22/19at 21:01; Start 02/22/19 at 19:30; Stop 02/22/19 at 19:32; Status DC Magnesium Sulfate/ Dextrose 100 ml @ 100 mls/hr 1X ONCE IV Last administered on 02/22/19at 21:09; Start 02/22/19 at 19:30; Stop 02/22/19 at 20:34; Status DC Buspirone HCl (Buspar) 30 mg Q8H NG Last administered on 02/23/19at 04:02; Start 02/22/19 at 19:30; Stop 02/24/19 at 11:31 Acetaminophen (Tylenol) 650 mg Q4H NG Last administered on 02/23/19at 09:26; Start 02/22/19 at 19:30 Artificial Tears (Artificial Tears) 1 drop Q6HRS OU Last administered on 02/23/19at 06:24; Start 02/23/19 at 00:00 Artificial Tears (Artificial Tears) 1 drop PRN Q15MIN PRN OU DRY EYE; Start 02/22/19 at 19:30 Heparin Sodium (Porcine) (Heparin Sodium) 5,000 unit BID SQ Last administered on 02/23/19 09:26; Start 02/22/19 at 21:00 Fentanyl Citrate 30 ml @ 0 mls/hr CONT PRN IV PER PROTOCOL. Last administered on 02/23/19 06:58; Start 02/22/19 at 19:30 Propofol 100 ml @ 0 mls/hr CONT PRN IV PER PROTOCOL. Last administered on 02/22/19 21:11; Start 02/22/19 at 19:30 Midazolam HCl 100 ml @ 0 mls/hr CONT PRN IV PER PROTOCOL. Last administered on 02/22/19 23:00; Start 02/22/19 at 19:30 Vecuronium Bayard (Norcuron Bolus) 8 mg PRN Q1HR PRN IV SHIVERING Last administered on 02/23/19 06:27; Start 02/22/19 at 19:30 Potassium Chloride/Water 100 ml @ 100 mls/hr Q1H IV Last administered on 02/22/19 21:08; Start 02/22/19 at 20:00; Stop 02/22/19 at 23:59; Status DC Potassium Chloride/Dextrose/ Sod Cl 1,000 ml @ 100 mls/hr Q10H IV ; Start 02/22/19 at 19:45; Stop 02/23/19 at 05:34; Status DC Fentanyl Citrate (Fentanyl 2ml Vial) 100 mcg 1X ONCE IV Last administered on 02/22/19 16:16; Start 02/22/19 at 20:30; Stop 02/22/19 at 20:34; Status DC Etomidate (Amidate) 20 mg 1X ONCE IV Last administered on 02/22/19 16:31; Start 02/22/19 at 20:30; Stop 02/22/19 at 20:34; Status DC Rocuronium Bayard (Zemuron) 50 mg 1X ONCE IV Last administered on 02/22/19 16:32; Start 02/22/19 at 20:30; Stop 02/22/19 at 20:34; Status DC Sodium Bicarbonate (Sodium Bicarb Adult 8.4% Syr) 50 meq 1X ONCE IV Last administered on 02/22/19 18:11; Start 02/22/19 at 20:45; Stop 02/22/19 at 20:46; Status DC Fentanyl Citrate (Fentanyl 2ml Vial) 100 mcg 1X ONCE IV Last administered on 02/22/19at 17:39; Start 02/22/19 at 21:30; Stop 02/22/19 at 21:31; Status DC Midazolam HCl (Versed) 4 mg 1X ONCE IV Last administered on 02/22/19at 17:59; Start 02/22/19 at 21:30; Stop 02/22/19 at 21:31; Status DC Insulin Human Regular 150 unit/ Sodium Chloride 151.5 ml @ 0 mls/hr CONT PRN IV SEE I/O RECORD; Start 02/22/19 at 22:15 Sodium Chloride 1,000 ml @ 150 mls/hr Q6H40M IV Last administered on 02/23/19at 05:36; Start 02/22/19 at 22:30 Sodium Phosphate 10 mmol/Dextrose 253.3333 ml @ 64.167 m... 1X ONCE IV Last administered on 02/23/19at 06:24; Start 02/23/19 at 04:00; Stop 02/23/19 at 07:56; Status DC Magnesium Sulfate 50 ml @ 25 mls/hr 1X ONCE IV Last administered on 02/23/19at 04:04; Start 02/23/19 at 04:00; Stop 02/23/19 at 05:59; Status DC Iohexol (Omnipaque 350 Mg/ml) 100 ml 1X ONCE IV ; Start 02/23/19 at 09:00; Stop 02/23/19 at 09:01; Status DC Info (CONTRAST GIVEN -- Rx MONITORING) 1 each PRN DAILY PRN MC SEE COMMENTS; Start 02/23/19 at 08:45; Stop 02/25/19 at 08:44 Magnesium Sulfate 50 ml @ 25 mls/hr 1X ONCE IV ; Start 02/23/19 at 09:45; Stop 02/23/19 at 11:44 Potassium Chloride/Water 100 ml @ 100 mls/hr Q1H IV ; Start 02/23/19 at 10:00; Stop 02/23/19 at 10:59 Active Scripts Active Reported Quinapril Hcl 20 Mg Tablet 1 Tab PO DAILY Pravastatin Sodium 80 Mg Tablet 1 Tab PO DAILY Allergies Allergies: Coded Allergies: No Known Drug Allergies (Unverified , 02/22/19) ROS Review of System Negative for fever, chills, weight loss, shortness of breath, chest pain, indigestion, hematochezia, melena, and dysuria. Full 14-point review of systems is negative. Physical Exam Physical Examination General: Well-developed, well-nourished male in no acute distress HEENT: Normocephalic andatraumatic. Temporal arteriespulsatile. Neck: Supple without bruit, no meningismus. He is in a cervical collar are getting grilled salmon Musculoskeletal: Stability:see neurologic. Gait exam:see neurologic. Tone:see neurologic.Strength:see neurologic. Neurological: Mental Status: orientation, memory, attention span/concentration, language, fund of knowledge: intubated and sedated, on hypothermia protocol. Cranial Nerves:Pupils equal and reactive to light. There are no spontaneous extraocular movements. There is no facial asymmetry. All other cranial related problems are negative except as mentioned before.Reflexes:1+ and symmetric with silent plantar responses. Motor: no response to pain. Coordination and gait: not testable. Sensory: not tested. Vitals VITALS Vital Signs Date Time Temp Pulse Resp B/P (MAP) Pulse Ox O2 Delivery O2 Flow Rate FiO2 02/23/19 09:04 100 Ventilator 02/23/19 06:00 91.2 16 02/23/19 06:00 44 95/53 (67) Labs Labs Laboratory Tests Test 02/22/19 16:10 02/22/19 17:41 02/22/19 20:40 02/22/19 22:59 White Blood Count 12.8 x10^3/uL (4.0-11.0) Red Blood Count 3.99 x10^6/uL (4.30-5.70) Hemoglobin 12.0 g/dL (13.0-17.5) Hematocrit 36.7 % (39.0-53.0) Mean Corpuscular Volume 92 fL (79-100) Mean Corpuscular Hemoglobin 30 pg (25-35) Mean Corpuscular Hemoglobin Concent 33 g/dL (31-37) Red Cell Distribution Width 13.9 % (11.5-14.5) Platelet Count 252 x10^3/uL (140-400) Neutrophils (%) (Auto) 48 % (31-73) Lymphocytes (%) (Auto) 45 % (24-48) Monocytes (%) (Auto) 5 % (0-9) Eosinophils (%) (Auto) 1 % (0-3) Basophils (%) (Auto) 1 % (0-3) Neutrophils # (Auto) 6.1 x10^3uL (1.8-7.7) Lymphocytes # (Auto) 5.8 x10^3/uL (1.0-4.8) Monocytes # (Auto) 0.6 x10^3/uL (0.0-1.1) Eosinophils # (Auto) 0.1 x10^3/uL (0.0-0.7) Basophils # (Auto) 0.1 x10^3/uL (0.0-0.2) Prothrombin Time 12.5 SEC (11.7-14.0) Prothromb Time International Ratio 1.0 (0.8-1.1) Activated Partial Thromboplast Time 24 SEC (24-38) Sodium Level 141 mmol/L (136-145) 139 mmol/L (136-145) Potassium Level 2.7 mmol/L (3.5-5.1) 5.6 mmol/L (3.5-5.1) Chloride Level 101 mmol/L (98-107) 106 mmol/L (98-107) Carbon Dioxide Level 16 mmol/L (21-32) 24 mmol/L (21-32) Anion Gap 24 (6-14) 9 (6-14) Blood Urea Nitrogen 17 mg/dL (8-26) 14 mg/dL (8-26) Creatinine 1.5 mg/dL (0.7-1.3) 1.1 mg/dL (0.7-1.3) Estimated GFR (Cockcroft-Gault) 47.7 68.3 BUN/Creatinine Ratio 11 (6-20) Glucose Level 224 mg/dL (70-99) 224 mg/dL (70-99) Calcium Level 9.0 mg/dL (8.5-10.1) 7.2 mg/dL (8.5-10.1) Magnesium Level 2.0 mg/dL (1.8-2.4) Total Bilirubin 0.4 mg/dL (0.2-1.0) Aspartate Amino Transf (AST/SGOT) 190 U/L (15-37) Alanine Aminotransferase (ALT/SGPT) 221 U/L (16-63) Alkaline Phosphatase 55 U/L (46-116) Creatine Kinase 178 U/L (39-308) Creatine Kinase MB (Mass) 2.1 ng/mL (0.0-3.6) Creatine Kinase MB Relative Index 1.2 % (0-4) Troponin I Quantitative < 0.017 ng/mL (0.000-0.055) GM-Log-D-Type Natriuretic Peptide 175 pg/mL (0-124) Total Protein 7.0 g/dL (6.4-8.2) Albumin 4.0 g/dL (3.4-5.0) Albumin/Globulin Ratio 1.3 (1.0-1.7) Lipase 131 U/L (73-393) O2 Saturation 98 % (92-99) Arterial Blood pH 7.26 (7.35-7.45) Arterial Blood pCO2 at Patient Temp 37 mmHg (35-46) Arterial Blood pO2 at Patient Temp 161 mmHg (65-108) Arterial Blood HCO3 16 mmol/L (21-28) Arterial Blood Base Excess -10 mmol/L (-3-3) FiO2 80% Glucose (Fingerstick) 169 mg/dL (70-99) Test 02/23/19 01:10 02/23/19 04:50 02/23/19 08:28 02/23/19 08:30 White Blood Count 11.7 x10^3/uL (4.0-11.0) 8.1 x10^3/uL (4.0-11.0) Red Blood Count 3.36 x10^6/uL (4.30-5.70) 3.07 x10^6/uL (4.30-5.70) Hemoglobin 10.1 g/dL (13.0-17.5) 9.4 g/dL (13.0-17.5) Hematocrit 30.7 % (39.0-53.0) 28.1 % (39.0-53.0) Mean Corpuscular Volume 92 fL (79-100) 92 fL (79-100) Mean Corpuscular Hemoglobin 30 pg (25-35) 31 pg (25-35) Mean Corpuscular Hemoglobin Concent 33 g/dL (31-37) 34 g/dL (31-37) Red Cell Distribution Width 14.0 % (11.5-14.5) 14.0 % (11.5-14.5) Platelet Count 169 x10^3/uL (140-400) 142 x10^3/uL (140-400) Neutrophils (%) (Auto) 70 % (31-73) 57 % (31-73) Lymphocytes (%) (Auto) 21 % (24-48) 31 % (24-48) Monocytes (%) (Auto) 8 % (0-9) 9 % (0-9) Eosinophils (%) (Auto) 0 % (0-3) 2 % (0-3) Basophils (%) (Auto) 0 % (0-3) 1 % (0-3) Neutrophils # (Auto) 8.2 x10^3uL (1.8-7.7) 4.6 x10^3uL (1.8-7.7) Lymphocytes # (Auto) 2.5 x10^3/uL (1.0-4.8) 2.5 x10^3/uL (1.0-4.8) Monocytes # (Auto) 1.0 x10^3/uL (0.0-1.1) 0.8 x10^3/uL (0.0-1.1) Eosinophils # (Auto) 0.0 x10^3/uL (0.0-0.7) 0.1 x10^3/uL (0.0-0.7) Basophils # (Auto) 0.1 x10^3/uL (0.0-0.2) 0.0 x10^3/uL (0.0-0.2) Prothrombin Time 13.4 SEC (11.7-14.0) Prothromb Time International Ratio 1.1 (0.8-1.1) Activated Partial Thromboplast Time 29 SEC (24-38) Sodium Level 144 mmol/L (136-145) 141 mmol/L (136-145) Potassium Level 4.1 mmol/L (3.5-5.1) 3.1 mmol/L (3.5-5.1) Chloride Level 108 mmol/L (98-107) 107 mmol/L (98-107) Carbon Dioxide Level 24 mmol/L (21-32) 21 mmol/L (21-32) Anion Gap 12 (6-14) 13 (6-14) Blood Urea Nitrogen 13 mg/dL (8-26) 12 mg/dL (8-26) Creatinine 0.9 mg/dL (0.7-1.3) 0.7 mg/dL (0.7-1.3) Estimated GFR (Cockcroft-Gault) 86.1 115.0 Glucose Level 115 mg/dL (70-99) 200 mg/dL (70-99) Calcium Level 7.3 mg/dL (8.5-10.1) 6.3 mg/dL (8.5-10.1) Ionized Calcium 1.01 mmol/L (1.13-1.32) Phosphorus Level 1.9 mg/dL (2.6-4.7) 5.7 mg/dL (2.6-4.7) Magnesium Level 2.2 mg/dL (1.8-2.4) 2.2 mg/dL (1.8-2.4) Troponin I Quantitative 0.374 ng/mL (0.000-0.055) 0.307 ng/mL (0.000-0.055) Urine Collection Type Unknown Urine Color Yellow Urine Clarity Clear Urine pH 6.0 Urine Specific [place] >=1.030 Urine Protein 30 mg/dL (NEG-TRACE) Urine Glucose (UA) Negative mg/dL (NEG) Urine Ketones (Stick) Negative mg/dL (NEG) Urine Blood Moderate (NEG) Urine Nitrite Negative (NEG) Urine Bilirubin Negative (NEG) Urine Urobilinogen Dipstick 0.2 mg/dL (0.2 mg/dL) Urine Leukocyte Esterase Negative (NEG) Urine RBC 20-40 /HPF (0-2) Urine WBC Occ /HPF (0-4) Urine Squamous Epithelial Cells Few /LPF Urine Bacteria Few /HPF (0-FEW) Urine Opiates Screen Pos (NEG) Urine Methadone Screen Neg (NEG) Urine Barbiturates Neg (NEG) Urine Phencyclidine Screen Neg (NEG) Urine Amphetamine/Methamphetamine Neg (NEG) Urine Benzodiazepines Screen Pos (NEG) Urine Cocaine Screen Neg (NEG) Urine Cannabinoids Screen Neg (NEG) Urine Ethyl Alcohol Neg (NEG) Glucose (Fingerstick) 198 mg/dL (70-99) BUN/Creatinine Ratio 17 (6-20) Total Bilirubin 0.3 mg/dL (0.2-1.0) Aspartate Amino Transf (AST/SGOT) 95 U/L (15-37) Alanine Aminotransferase (ALT/SGPT) 148 U/L (16-63) Alkaline Phosphatase 32 U/L (46-116) Total Protein 4.2 g/dL (6.4-8.2) Albumin 2.5 g/dL (3.4-5.0) Albumin/Globulin Ratio 1.5 (1.0-1.7) Test 02/23/19 09:15 O2 Saturation 99 % (92-99) Arterial Blood pH 7.50 (7.35-7.45) Arterial Blood pH (Temp corrected) 7.56 Arterial Blood pCO2 at Patient Temp 24 mmHg (35-46) Arterial Blood pCO2 (Temp correct) 20 mmHg Arterial Blood pO2 at Patient Temp 228 mmHg (65-108) Arterial Blood pO2 (Temp corrected) 207 mmHg Arterial Blood HCO3 18 mmol/L (21-28) Arterial Blood Base Excess -4 mmol/L (-3-3) FiO2 40 Laboratory Tests Test 02/22/19 16:10 02/22/19 17:41 02/22/19 20:40 02/22/19 22:59 White Blood Count 12.8 x10^3/uL (4.0-11.0) Red Blood Count 3.99 x10^6/uL (4.30-5.70) Hemoglobin 12.0 g/dL (13.0-17.5) Hematocrit 36.7 % (39.0-53.0) Mean Corpuscular Volume 92 fL (79-100) Mean Corpuscular Hemoglobin 30 pg (25-35) Mean Corpuscular Hemoglobin Concent 33 g/dL (31-37) Red Cell Distribution Width 13.9 % (11.5-14.5) Platelet Count 252 x10^3/uL (140-400) Neutrophils (%) (Auto) 48 % (31-73) Lymphocytes (%) (Auto) 45 % (24-48) Monocytes (%) (Auto) 5 % (0-9) Eosinophils (%) (Auto) 1 % (0-3) Basophils (%) (Auto) 1 % (0-3) Neutrophils # (Auto) 6.1 x10^3uL (1.8-7.7) Lymphocytes # (Auto) 5.8 x10^3/uL (1.0-4.8) Monocytes # (Auto) 0.6 x10^3/uL (0.0-1.1) Eosinophils # (Auto) 0.1 x10^3/uL (0.0-0.7) Basophils # (Auto) 0.1 x10^3/uL (0.0-0.2) Prothrombin Time 12.5 SEC (11.7-14.0) Prothromb Time International Ratio 1.0 (0.8-1.1) Activated Partial Thromboplast Time 24 SEC (24-38) Sodium Level 141 mmol/L (136-145) 139 mmol/L (136-145) Potassium Level 2.7 mmol/L (3.5-5.1) 5.6 mmol/L (3.5-5.1) Chloride Level 101 mmol/L (98-107) 106 mmol/L (98-107) Carbon Dioxide Level 16 mmol/L (21-32) 24 mmol/L (21-32) Anion Gap 24 (6-14) 9 (6-14) Blood Urea Nitrogen 17 mg/dL (8-26) 14 mg/dL (8-26) Creatinine 1.5 mg/dL (0.7-1.3) 1.1 mg/dL (0.7-1.3) Estimated GFR (Cockcroft-Gault) 47.7 68.3 BUN/Creatinine Ratio 11 (6-20) Glucose Level 224 mg/dL (70-99) 224 mg/dL (70-99) Calcium Level 9.0 mg/dL (8.5-10.1) 7.2 mg/dL (8.5-10.1) Magnesium Level 2.0 mg/dL (1.8-2.4) Total Bilirubin 0.4 mg/dL (0.2-1.0) Aspartate Amino Transf (AST/SGOT) 190 U/L (15-37) Alanine Aminotransferase (ALT/SGPT) 221 U/L (16-63) Alkaline Phosphatase 55 U/L (46-116) Creatine Kinase 178 U/L (39-308) Creatine Kinase MB (Mass) 2.1 ng/mL (0.0-3.6) Creatine Kinase MB Relative Index 1.2 % (0-4) Troponin I Quantitative < 0.017 ng/mL (0.000-0.055) NA-Ojr-I-Type Natriuretic Peptide 175 pg/mL (0-124) Total Protein 7.0 g/dL (6.4-8.2) Albumin 4.0 g/dL (3.4-5.0) Albumin/Globulin Ratio 1.3 (1.0-1.7) Lipase 131 U/L (73-393) O2 Saturation 98 % (92-99) Arterial Blood pH 7.26 (7.35-7.45) Arterial Blood pCO2 at Patient Temp 37 mmHg (35-46) Arterial Blood pO2 at Patient Temp 161 mmHg (65-108) Arterial Blood HCO3 16 mmol/L (21-28) Arterial Blood Base Excess -10 mmol/L (-3-3) FiO2 80% Glucose (Fingerstick) 169 mg/dL (70-99) Test 02/23/19 01:10 02/23/19 04:50 02/23/19 08:28 02/23/19 08:30 White Blood Count 11.7 x10^3/uL (4.0-11.0) 8.1 x10^3/uL (4.0-11.0) Red Blood Count 3.36 x10^6/uL (4.30-5.70) 3.07 x10^6/uL (4.30-5.70) Hemoglobin 10.1 g/dL (13.0-17.5) 9.4 g/dL (13.0-17.5) Hematocrit 30.7 % (39.0-53.0) 28.1 % (39.0-53.0) Mean Corpuscular Volume 92 fL (79-100) 92 fL (79-100) Mean Corpuscular Hemoglobin 30 pg (25-35) 31 pg (25-35) Mean Corpuscular Hemoglobin Concent 33 g/dL (31-37) 34 g/dL (31-37) Red Cell Distribution Width 14.0 % (11.5-14.5) 14.0 % (11.5-14.5) Platelet Count 169 x10^3/uL (140-400) 142 x10^3/uL (140-400) Neutrophils (%) (Auto) 70 % (31-73) 57 % (31-73) Lymphocytes (%) (Auto) 21 % (24-48) 31 % (24-48) Monocytes (%) (Auto) 8 % (0-9) 9 % (0-9) Eosinophils (%) (Auto) 0 % (0-3) 2 % (0-3) Basophils (%) (Auto) 0 % (0-3) 1 % (0-3) Neutrophils # (Auto) 8.2 x10^3uL (1.8-7.7) 4.6 x10^3uL (1.8-7.7) Lymphocytes # (Auto) 2.5 x10^3/uL (1.0-4.8) 2.5 x10^3/uL (1.0-4.8) Monocytes # (Auto) 1.0 x10^3/uL (0.0-1.1) 0.8 x10^3/uL (0.0-1.1) Eosinophils # (Auto) 0.0 x10^3/uL (0.0-0.7) 0.1 x10^3/uL (0.0-0.7) Basophils # (Auto) 0.1 x10^3/uL (0.0-0.2) 0.0 x10^3/uL (0.0-0.2) Prothrombin Time 13.4 SEC (11.7-14.0) Prothromb Time International Ratio 1.1 (0.8-1.1) Activated Partial Thromboplast Time 29 SEC (24-38) Sodium Level 144 mmol/L (136-145) 141 mmol/L (136-145) Potassium Level 4.1 mmol/L (3.5-5.1) 3.1 mmol/L (3.5-5.1) Chloride Level 108 mmol/L (98-107) 107 mmol/L (98-107) Carbon Dioxide Level 24 mmol/L (21-32) 21 mmol/L (21-32) Anion Gap 12 (6-14) 13 (6-14) Blood Urea Nitrogen 13 mg/dL (8-26) 12 mg/dL (8-26) Creatinine 0.9 mg/dL (0.7-1.3) 0.7 mg/dL (0.7-1.3) Estimated GFR (Cockcroft-Gault) 86.1 115.0 Glucose Level 115 mg/dL (70-99) 200 mg/dL (70-99) Calcium Level 7.3 mg/dL (8.5-10.1) 6.3 mg/dL (8.5-10.1) Ionized Calcium 1.01 mmol/L (1.13-1.32) Phosphorus Level 1.9 mg/dL (2.6-4.7) 5.7 mg/dL (2.6-4.7) Magnesium Level 2.2 mg/dL (1.8-2.4) 2.2 mg/dL (1.8-2.4) Troponin I Quantitative 0.374 ng/mL (0.000-0.055) 0.307 ng/mL (0.000-0.055) Urine Collection Type Unknown Urine Color Yellow Urine Clarity Clear Urine pH 6.0 Urine Specific [place] >=1.030 Urine Protein 30 mg/dL (NEG-TRACE) Urine Glucose (UA) Negative mg/dL (NEG) Urine Ketones (Stick) Negative mg/dL (NEG) Urine Blood Moderate (NEG) Urine Nitrite Negative (NEG) Urine Bilirubin Negative (NEG) Urine Urobilinogen Dipstick 0.2 mg/dL (0.2 mg/dL) Urine Leukocyte Esterase Negative (NEG) Urine RBC 20-40 /HPF (0-2) Urine WBC Occ /HPF (0-4) Urine Squamous Epithelial Cells Few /LPF Urine Bacteria Few /HPF (0-FEW) Urine Opiates Screen Pos (NEG) Urine Methadone Screen Neg (NEG) Urine Barbiturates Neg (NEG) Urine Phencyclidine Screen Neg (NEG) Urine Amphetamine/Methamphetamine Neg (NEG) Urine Benzodiazepines Screen Pos (NEG) Urine Cocaine Screen Neg (NEG) Urine Cannabinoids Screen Neg (NEG) Urine Ethyl Alcohol Neg (NEG) Glucose (Fingerstick) 198 mg/dL (70-99) BUN/Creatinine Ratio 17 (6-20) Total Bilirubin 0.3 mg/dL (0.2-1.0) Aspartate Amino Transf (AST/SGOT) 95 U/L (15-37) Alanine Aminotransferase (ALT/SGPT) 148 U/L (16-63) Alkaline Phosphatase 32 U/L (46-116) Total Protein 4.2 g/dL (6.4-8.2) Albumin 2.5 g/dL (3.4-5.0) Albumin/Globulin Ratio 1.5 (1.0-1.7) Test 02/23/19 09:15 O2 Saturation 99 % (92-99) Arterial Blood pH 7.50 (7.35-7.45) Arterial Blood pH (Temp corrected) 7.56 Arterial Blood pCO2 at Patient Temp 24 mmHg (35-46) Arterial Blood pCO2 (Temp correct) 20 mmHg Arterial Blood pO2 at Patient Temp 228 mmHg (65-108) Arterial Blood pO2 (Temp corrected) 207 mmHg Arterial Blood HCO3 18 mmol/L (21-28) Arterial Blood Base Excess -4 mmol/L (-3-3) FiO2 [address] scan of the head without contrast 02/22/2019 Clinical History: Altered mental status. Technique: Unenhanced, contiguous, 5 mm axial sections were obtained through the head. One or more of the following individualized dose reduction techniques were utilized for this study: 1. Automated exposure control. 2. Adjustment of the mA and/or kV according to patient size. 3. Use of iterative reconstruction technique. Findings: No previous studies are available for comparison. There is generalized parenchymal atrophy. Areas of decreased attenuation are seen within the periventricular and subcortical white matter of both cerebral hemispheres consistent with areas of small vessel ischemic disease. No acute parenchymal abnormality is seen. No extra-axial fluid collection is noted. No skull fracture is seen. Impression: No acute intracranial abnormality is seen. CT scan of the cervical spine without contrast 02/22/2019 Clinical history: Neck injury. Technique: Unenhanced, contiguous, 0.625 mm axial sections were obtained through the cervical spine. Axial, coronal and sagittal reconstructed images were obtained. One or more of the following individualized dose reduction techniques were utilized for this study: 1. Automated exposure control. 2. Adjustment of the mA and/or kV according to patient size. 3. Use of iterative reconstruction technique. Findings: Sagittal coronal reconstructed images demonstrate mild lateral curvature of the cervical spine, convex to the right. No fracture or subluxation cervical vertebrae seen. ET and NG tubes are noted in place. Impression: No fracture or subluxation of the cervical vertebra is identified. Assessment/Plan Assessment/Plan Impression: Ventricular fibrillation cardiac arrest, now in hypothermia protocol Recommendations: Okay to discontinue cervical collar Complete hypothermia protocol I will re-examine tomorrow afternoon Fully discussed with the patient's daughter. Thank you for letting me help with the patient's care. NOE PADILLA MD February 23, 2019 09:55
--- NOTE | 2019-02-23 09:55 | RAD ---
MR#: [id number] Date of Study: 02/23/2019 Ordering Physician: RENU LARES, Referring Physician: BO RINCON, Tech: Wing Shafer MBA, RDMS, RVT, RDCS, RTR APPROVED REPORT Bilateral Lower Extremity Venous Study for DVT Patient Location: IN-PATIENT Indications Lower Extremity Edema: Bilateral Vein Imaging (Right) CFV (R): Compressible SFJ (R): Compressible FEM (R): Compressible POP (R): Compressible DFV (R): Compressible PTV (R): Spontaneous GSV (R): Spontaneous Peroneals (R): Spontaneous Vein Imaging (Left) CFV (L): Compressible SFJ (L): Compressible FEM (L): Compressible POP (L): Compressible DFV (L): Compressible PTV (L): Spontaneous Peroneals (L): Spontaneous Doppler Evaluation (Right) CFV (R): Spontaneous POP (R):Spontaneous Doppler Evaluation (Left) CFV (L):Spontaneous POP (L):Spontaneous Findings The bilateral lower extremity deep veins were evaluated for thrombus with color Doppler, spectral and grayscale images. On the right the grayscale images of the common femoral, superficial femoral and popliteal veins do n ot demonstrate any evidence of thrombus and these veins appear to be compressible. The below-knee vei ns were not well visualized but grossly appear to be compressible. Spectral imaging and color Doppler do not reveal any evidence of obstruction to flow with normal respirophasic variation above the knee . Below the knee there is spontaneous flow noted. On the left, the grayscale images of the common femoral, superficial femoral and popliteal veins do n ot demonstrate any evidence of thrombus and these veins appear to be compressible. The below-knee vei ns again were not well visualized but grossly appear to be compressible. Spectral imaging and color D oppler do not reveal any evidence of obstruction to flow with normal respirophasic variation above th e knee. The below-knee veins demonstrate spontaneous flow. Critical Notification Critical Value: No <Conclusion> No evidence of DVT bilaterally. Signed by : Renu Lares, Electronically Approved : 02/23/2019 09:54:22
--- NOTE | 2019-02-23 09:56 | NUR ---
SS following for discharge planning. SS reviewed pt chart. Pt is from home with spouse and is currently on the vent. SS will continue to follow for discharge planning.
[2019-02-23] MEDS ORDERED: POTASSIUM CHLORIDE 10MEQ 100 ML IV SCH (10:00)
--- NOTE | 2019-02-23 10:24 | RAD ---
Chest CTA History: Shortness of air, chest pain, intubated Technique: After bolus of intravenous contrast, CT imaging was performed of the chest. Multiplanar reconstruction images to include MIP reconstruction images are submitted. Exposure: One or more of the following individualized dose reduction techniques were utilized for this examination: 1. Automated exposure control 2. Adjustment of the mA and/or kV according to patient size 3. Use of iterative reconstruction technique. Comparison: None Findings: [ ] Accurate evaluation for smaller and more peripheral emboli is limited due to motion. No central pulmonary embolism is identified in the main pulmonary arteries or the more proximal segmental branches. Smaller emboli of the lower lobes more distally would be difficult to exclude given degree of motion. There are dependent infiltrates of the lower lobes bilaterally, questionable trace pleural effusions also present. There is also infiltrate posteriorly of the right upper lobe, to lesser degree of the left upper lobe. There is prominent reflux of contrast into hepatic veins, also azygos vein. There is endotracheal tube and enteric catheter present. There is no pneumothorax. There is no pericardial effusion. Heart size is borderline. Impression: 1. Exam is degraded by motion. There are dependent infiltrates bilaterally, also to a lesser degree posteriorly of the upper lobes greater on the right. No central pulmonary embolism is identified although cannot accurately exclude smaller emboli of the lower lobes bilaterally at which there is a greater degree of motion. 2. There is prominent reflux into the hepatic veins and azygos vein which can be associated with heart failure. Electronically signed by: Hang Terrazas MD (02/23/2019 10:22 AM) [id number]
[2019-02-23 10:51] LABS: CREATININE ISTAT 1.2 mg/dL (0.5-1.4); HEMOGLOBIN ISTAT 12.2 g/dL (14-18); ION CA ISTAT 1.07 mmol/L (1.13-1.32); POTASSIUM ISTAT 2.7 mmol/L (3.5-5.0)
--- NOTE | 2019-02-23 11:22 | CONS ---
DATE OF CONSULTATION: PULMONARY CONSULTATION ATTENDING PHYSICIAN: Dr. Linn. REASON FOR CONSULTATION: Respiratory failure, cardiac arrest. HISTORY OF PRESENT ILLNESS: The patient is a 58-year-old male, who is very athletic. He was having a 5K race and collapsed towards the end. He became unresponsive and pulseless. CPR was initiated. EMS was called. He was noted to be in ventricular fibrillation when they arrived, he was shocked once and had return of spontaneous circulation. He was agitated and moaning and appeared to be in pain and was tachycardic. As a result, he was intubated in the ER. Cardiology was consulted. He had very mild troponin elevation. His potassium was 2.9. The patient was placed on hypothermic protocol. The patient underwent CT angiogram, which was reviewed by me. There were no central or distal pulmonary emboli. There was some motion artifact. Lower lobe vessels could not be accurately assessed. There is a mild upper lobe infiltrate and also dependent atelectasis at the bases. His echocardiogram revealed an EF 45-50%. His venous Dopplers were performed and they were negative. His arterial blood gases showed a pH of 7.26 initially with a pCO2 of 37; pO2 161 with bicarb of 16, now is 7.50; pCO2 of 24 and a pO2 of 228 on 40% FiO2. He is currently on assist-control rate of 16. I have been asked to see him for further evaluation. PAST MEDICAL HISTORY: Essentially unremarkable. PAST SURGICAL HISTORY: Unknown. ALLERGIES: None. MEDICATIONS: Reviewed, as listed in the MRAD. SYSTEM REVIEW: Unable to obtain from the patient. SOCIAL HISTORY: No reported tobacco history. PHYSICAL EXAMINATION: VITAL SIGNS: Reviewed. He is currently on hypothermic protocol. Blood pressure 95-110 systolic. Pulse ox is 100%. HEENT: Pupils are small, but reactive. NECK: Supple. LUNGS: Clear. CARDIOVASCULAR: With a regular rate. ABDOMEN: Soft, nontender. EXTREMITIES: With no pitting edema. LABORATORY DATA: Labs were reviewed. ABGs as discussed in my history of present illness. BUN and creatinine normal. His troponin is 0.3. Albumin is 2.5. Urine drug screen is positive for opiates and benzos. INR 1.1. White cell count 8.1 and was 12.8 on admission. IMPRESSION: 1. Acute respiratory failure secondary to ventricular fibrillation cardiac arrest. 2. Ventricular fibrillation cardiac arrest status post shock and cardiopulmonary resuscitation. 3. No definite evidence of central pulmonary emboli. 4. Abnormal CT chest with upper lobe infiltrates, could be related to aspiration and some dependent atelectasis. 5. No significant tobacco history reported. 6. Hypokalemia, which has been corrected. 7. Moderate protein-calorie malnutrition. RECOMMENDATIONS: 1. Continue with present assist control mode. 2. Follow Cardiology recommendations. 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 3. Add empiric antibiotics to cover for any aspiration. 4. Monitor blood pressure closely. At present, he is not on any pressors. 5. PRN bronchodilators. 6. Monitor electrolytes closely. 7. Heparin for deep venous thrombosis prophylaxis. 8. Stress ulcer prophylaxis. 9. Discussed with RN and RT and we will follow along with you. Critical care time 37 minutes. KATHRYN SHANKS MD DR: ROBERT/juan c JOB#: [id number] / [id number]
[2019-02-23] MEDS ORDERED: CALCIUM CARBONATE 500 MG TAB.CHEW PO ONE (11:45)
[2019-02-23] MEDS: cefTRIAXone IV Push 1 GM VIAL. IVP SCH (12:02)
[2019-02-23] MEDS: MIDAZOLAM 100mg/100ml NS BAG 100 ML IV PRN (12:38)
--- NOTE | 2019-02-23 13:49 | EKG ---
[facility] [address] [place] [address] Test Date: 2019-02-23 Test Time: 13:39:30 Pat Name: MARISSA BARNES Department: Room: 107 1 Gender: M Linux Admin: AT : 1960 Requested By: RENU LARES Order Number: [id number] Reading MD: Measurements Intervals [place] Rate: 43 P: 0 AK: 176 QRS: 64 QRSD: 94 T: 43 QT: 610 QTc: 521 Interpretive Statements SINUS BRADYCARDIA PROLONGED QT NO SPECIFIC ECG ABNORMALITIES RI6.01 Unconfirmed report No previous ECG available for comparison
[2019-02-23] MEDS ORDERED: IOHEXOL 350 MG/ML 100 ML VIAL. ONE (14:53)
--- NOTE | 2019-02-23 15:16 | NUR ---
SS following up with discharge planning. SS received phone contact from pt's RN stating that pt's family is requesting transfer to [facility]. SS contacted [facility] transfer team, , and made request for transfer. [facility] requested copy of insurance card and demographics. SS faxed requested information to [facility] at fax [phone]. [facility] reported that they would review information and discuss with physician and contact Dr. Sorto. They reported that they would contact SS for further information. They also reported that [facility] currently has a wait list and if accepted pt would be placed on the wait list.
[2019-02-23 15:37] LABS: CALCIUM 7.5 mg/dL (8.5-10.1); CREATININE 0.8 mg/dL (0.7-1.3); GFR 98.6; MAGNESIUM 2.9 mg/dL (1.8-2.4); POTASSIUM 4.3 mmol/L (3.5-5.1)
[2019-02-23 15:44] LABS: PROTHROMBIN TIME PATIENT 14.4 SEC (11.7-14.0)
--- NOTE | 2019-02-23 16:11 | NUR ---
SS following up with discharge planning. Pt accepted at [facility] on [facility] [address]. [facility] reported that bed will be available tomorrow on 02/24/2019. They requested that SS contact them in the morning for further information and bed assignment. SS will follow up with discharge planning in the morning. Pt's RN and physician notified.
[2019-02-23] MEDS ORDERED: MAGNESIUM SULFATE 1GM 100 ML IV ONE (16:45)
--- NOTE | 2019-02-23 18:37 | NUR ---
Shift note Maintenance phase of targetted temperature management protocol. VSS. During this shift we did a CTA to rule out PE w/ manual bag and monitor, with no complications. Family has been at bedside all day. Plan is to go to [facility] tomorrow and plan is to be intubated thru transfer. All lines in tact.
[2019-02-23] MEDS ORDERED: FAMOTIDINE 20 MG TABLET. PO SCH (21:00)
[2019-02-23 21:08] LABS: BASO % 0 % (0-3); EOS # 0.1 x10^3/uL (0.0-0.7); EOS % 1 % (0-3); HEMOGLOBIN 11.7 g/dL (13.0-17.5); LYMPH # 1.6 x10^3/uL (1.0-4.8); LYMPH % 17 % (24-48); MEAN CORPUSCULAR HEMOGLOBIN 30 pg (25-35); MEAN CORPUSCULAR HGB CONC 33 g/dL (31-37); MEAN CORPUSCULAR VOLUME 92 fL (79-100); MONO # 0.7 x10^3/uL (0.0-1.1); MONO % 8 % (0-9); NEUT # 6.8 x10^3uL (1.8-7.7); NEUT % 74 % (31-73); PLATELET COUNT 168 x10^3/uL (140-400); RED CELL DISTRIBUTION WIDTH 14.3 % (11.5-14.5); WHITE BLOOD COUNT 9.2 x10^3/uL (4.0-11.0)
[2019-02-23 21:24] LABS: CALCIUM 7.2 mg/dL (8.5-10.1); CREATININE 0.8 mg/dL (0.7-1.3); GFR 98.6; MAGNESIUM 2.8 mg/dL (1.8-2.4); POTASSIUM 4.7 mmol/L (3.5-5.1)
[2019-02-23] MEDS ORDERED: IV NORMAL SALINE 500ML BAG 500 ML IV ONE (23:45)
--- NOTE | 2019-02-23 23:45 | NUR ---
Patient SBP dropped to 77 and with recheck only increased to 80--Dr Sorto paged. Dr Sorto returned page notified of Hypotension as patient has started to rewarm since 2129 also discussed although UO is adequate, it has decreased over the past 3HRS . Orders received to give NS 500CC bolus and may start Dopamine at 2.5MCG/KG/MIN if SBP<80's and MAP<60 after NS bolus. See orders, vital signs and I/O.
[2019-02-24] VITALS (21 sets, daily range): BP systolic 80–110; BP diastolic 49–73
[2019-02-24] MEDS: VECURONIUM BOLUS 10 MG VIAL. IV PRN ×2 (02:29→05:55)
[2019-02-24] MEDS: IV NORMAL SALINE 1000ML BAG 1,000 ML IV SCH ×2 (03:11→07:26)
[2019-02-24] MEDS: ACETAMINOPHEN 650 MG/20.3 ML SOLUTION. NG SCH ×3 (03:30→11:30)
[2019-02-24] MEDS: busPIRone 10 MG TABLET. NG SCH ×2 (03:31→11:30)
[2019-02-24] MEDS: POLYVINYL ALCOHOL 1.4% OPHTH SOLUTION 15ML BOTTLE. OU SCH ×2 (06:03→11:30)
--- NOTE | 2019-02-24 08:12 | PDOC ---
PROGRESS NOTES Chief Complaint Chief Complaint Cardiac arrest in the field V tach - consult cardiology, unsure of CV hx Critical hypokalemia EMA - vasomotor nephropathy Transaminitis, NOS ICU admit, on vent, PULM consult, cooling protocol supportive care ICU admit, 37 min CC time History of Present Illness History of Present Illness Mr. Snell is a 58 yo athletic appearing male brought by EMS status post cardiac arrest after collapsing following a 5K race. He became unresponsive, pulseless, CPR initiated, EMS called, in VF when they arrived, shocked once, ROSC achieved. He was agitated, moaning, moving, appeared in pain, was tachycardia and intubated in ER. S/p cardiology consultation. Other than sinus tachycardia and very mild troponin elevation 0.3 the suspicion for etiology is metabolic derangement, hypokalemia 2.9, replaced, or possible thrombosis. Has been stable on the vent on hypothermia protocol will start rewarming this morning. Labs pending. CTPA and bilateral LE venous dopplers were negative for acute thrombus yesterday. Phos, mag, K and calcium replete yesterday D/w family bedside. His spouse works at [employer] and has requested transfer there, which I have explained we can accommodate once more stable. Vitals Vitals Vital Signs Date Time Temp Pulse Resp B/P (MAP) Pulse Ox O2 Delivery O2 Flow Rate FiO2 02/24/19 07:00 47 16 93/56 (68) 100 Ventilator 02/24/19 07:00 95.7 Physical Exam General: No acute distress, Other (sedated on vent, ) Heart: Regular rate Lungs: Clear Abdomen: Normal bowel sounds, Soft Extremities: No cyanosis, No edema, Normal pulses, Other Skin: No rashes, No breakdown, No significant lesion, Other (scar on left dorsum foot, prior toe surg, cool feet) Labs LABS Laboratory Tests Test 02/23/19 08:28 02/23/19 08:30 02/23/19 09:15 02/23/19 09:22 Glucose (Fingerstick) 198 mg/dL (70-99) 120 mg/dL (70-99) White Blood Count 8.1 x10^3/uL (4.0-11.0) Red Blood Count 3.07 x10^6/uL (4.30-5.70) Hemoglobin 9.4 g/dL (13.0-17.5) Hematocrit 28.1 % (39.0-53.0) Mean Corpuscular Volume 92 fL (79-100) Mean Corpuscular Hemoglobin 31 pg (25-35) Mean Corpuscular Hemoglobin Concent 34 g/dL (31-37) Red Cell Distribution Width 14.0 % (11.5-14.5) Platelet Count 142 x10^3/uL (140-400) Neutrophils (%) (Auto) 57 % (31-73) Lymphocytes (%) (Auto) 31 % (24-48) Monocytes (%) (Auto) 9 % (0-9) Eosinophils (%) (Auto) 2 % (0-3) Basophils (%) (Auto) 1 % (0-3) Neutrophils # (Auto) 4.6 x10^3uL (1.8-7.7) Lymphocytes # (Auto) 2.5 x10^3/uL (1.0-4.8) Monocytes # (Auto) 0.8 x10^3/uL (0.0-1.1) Eosinophils # (Auto) 0.1 x10^3/uL (0.0-0.7) Basophils # (Auto) 0.0 x10^3/uL (0.0-0.2) Prothrombin Time 14.0 SEC (11.7-14.0) Prothromb Time International Ratio 1.1 (0.8-1.1) Activated Partial Thromboplast Time 33 SEC (24-38) Sodium Level 141 mmol/L (136-145) Potassium Level 3.1 mmol/L (3.5-5.1) Chloride Level 107 mmol/L (98-107) Carbon Dioxide Level 21 mmol/L (21-32) Anion Gap 13 (6-14) Blood Urea Nitrogen 12 mg/dL (8-26) Creatinine 0.7 mg/dL (0.7-1.3) Estimated GFR (Cockcroft-Gault) 115.0 BUN/Creatinine Ratio 17 (6-20) Glucose Level 200 mg/dL (70-99) Calcium Level 6.3 mg/dL (8.5-10.1) Phosphorus Level 5.7 mg/dL (2.6-4.7) Magnesium Level 2.2 mg/dL (1.8-2.4) Total Bilirubin 0.3 mg/dL (0.2-1.0) Aspartate Amino Transf (AST/SGOT) 95 U/L (15-37) Alanine Aminotransferase (ALT/SGPT) 148 U/L (16-63) Alkaline Phosphatase 32 U/L (46-116) Troponin I Quantitative 0.307 ng/mL (0.000-0.055) Total Protein 4.2 g/dL (6.4-8.2) Albumin 2.5 g/dL (3.4-5.0) Albumin/Globulin Ratio 1.5 (1.0-1.7) O2 Saturation 99 % (92-99) Arterial Blood pH 7.50 (7.35-7.45) Arterial Blood pH (Temp corrected) 7.56 Arterial Blood pCO2 at Patient Temp 24 mmHg (35-46) Arterial Blood pCO2 (Temp correct) 20 mmHg Arterial Blood pO2 at Patient Temp 228 mmHg (65-108) Arterial Blood pO2 (Temp corrected) 207 mmHg Arterial Blood HCO3 18 mmol/L (21-28) Arterial Blood Base Excess -4 mmol/L (-3-3) FiO2 40 Test 02/23/19 14:57 02/23/19 15:00 02/23/19 18:50 02/23/19 18:52 Glucose (Fingerstick) 69 mg/dL (70-99) 91 mg/dL (70-99) Prothrombin Time 14.4 SEC (11.7-14.0) Prothromb Time International Ratio 1.2 (0.8-1.1) Activated Partial Thromboplast Time 39 SEC (24-38) Sodium Level 142 mmol/L (136-145) Potassium Level 4.3 mmol/L (3.5-5.1) Chloride Level 108 mmol/L (98-107) Carbon Dioxide Level 25 mmol/L (21-32) Anion Gap 9 (6-14) Blood Urea Nitrogen 12 mg/dL (8-26) Creatinine 0.8 mg/dL (0.7-1.3) Estimated GFR (Cockcroft-Gault) 98.6 Glucose Level 94 mg/dL (70-99) 98 mg/dL (70-99) Calcium Level 7.5 mg/dL (8.5-10.1) Ionized Calcium 1.04 mmol/L (1.13-1.32) Phosphorus Level 3.0 mg/dL (2.6-4.7) Magnesium Level 2.9 mg/dL (1.8-2.4) Test 02/23/19 20:55 02/23/19 20:59 White Blood Count 9.2 x10^3/uL (4.0-11.0) Red Blood Count 3.90 x10^6/uL (4.30-5.70) Hemoglobin 11.7 g/dL (13.0-17.5) Hematocrit 36.0 % (39.0-53.0) Mean Corpuscular Volume 92 fL (79-100) Mean Corpuscular Hemoglobin 30 pg (25-35) Mean Corpuscular Hemoglobin Concent 33 g/dL (31-37) Red Cell Distribution Width 14.3 % (11.5-14.5) Platelet Count 168 x10^3/uL (140-400) Neutrophils (%) (Auto) 74 % (31-73) Lymphocytes (%) (Auto) 17 % (24-48) Monocytes (%) (Auto) 8 % (0-9) Eosinophils (%) (Auto) 1 % (0-3) Basophils (%) (Auto) 0 % (0-3) Neutrophils # (Auto) 6.8 x10^3uL (1.8-7.7) Lymphocytes # (Auto) 1.6 x10^3/uL (1.0-4.8) Monocytes # (Auto) 0.7 x10^3/uL (0.0-1.1) Eosinophils # (Auto) 0.1 x10^3/uL (0.0-0.7) Basophils # (Auto) 0.0 x10^3/uL (0.0-0.2) Prothrombin Time 14.0 SEC (11.7-14.0) Prothromb Time International Ratio 1.1 (0.8-1.1) Activated Partial Thromboplast Time 36 SEC (24-38) Sodium Level 141 mmol/L (136-145) Potassium Level 4.7 mmol/L (3.5-5.1) Chloride Level 108 mmol/L (98-107) Carbon Dioxide Level 23 mmol/L (21-32) Anion Gap 10 (6-14) Blood Urea Nitrogen 11 mg/dL (8-26) Creatinine 0.8 mg/dL (0.7-1.3) Estimated GFR (Cockcroft-Gault) 98.6 Glucose Level 110 mg/dL (70-99) Calcium Level 7.2 mg/dL (8.5-10.1) Ionized Calcium 0.99 mmol/L (1.13-1.32) Magnesium Level 2.8 mg/dL (1.8-2.4) Glucose (Fingerstick) 105 mg/dL (70-99) Assessment and Plan Assessmemt and Plan Problems Medical Problems: (1) Cardiac arrest Status: Acute (2) Dehydration Status: Acute (3) Ventricular fibrillation Status: Acute Comment Review of Relevant I have reviewed the following items taylor (where applicable) has been applied. Labs Laboratory Tests Test 02/22/19 16:10 02/22/19 16:31 02/22/19 17:41 02/22/19 20:40 White Blood Count 12.8 x10^3/uL (4.0-11.0) Red Blood Count 3.99 x10^6/uL (4.30-5.70) Hemoglobin 12.0 g/dL (13.0-17.5) Hematocrit 36.7 % (39.0-53.0) Mean Corpuscular Volume 92 fL (79-100) Mean Corpuscular Hemoglobin 30 pg (25-35) Mean Corpuscular Hemoglobin Concent 33 g/dL (31-37) Red Cell Distribution Width 13.9 % (11.5-14.5) Platelet Count 252 x10^3/uL (140-400) Neutrophils (%) (Auto) 48 % (31-73) Lymphocytes (%) (Auto) 45 % (24-48) Monocytes (%) (Auto) 5 % (0-9) Eosinophils (%) (Auto) 1 % (0-3) Basophils (%) (Auto) 1 % (0-3) Neutrophils # (Auto) 6.1 x10^3uL (1.8-7.7) Lymphocytes # (Auto) 5.8 x10^3/uL (1.0-4.8) Monocytes # (Auto) 0.6 x10^3/uL (0.0-1.1) Eosinophils # (Auto) 0.1 x10^3/uL (0.0-0.7) Basophils # (Auto) 0.1 x10^3/uL (0.0-0.2) Prothrombin Time 12.5 SEC (11.7-14.0) Prothromb Time International Ratio 1.0 (0.8-1.1) Activated Partial Thromboplast Time 24 SEC (24-38) Sodium Level 141 mmol/L (136-145) 139 mmol/L (136-145) Potassium Level 2.7 mmol/L (3.5-5.1) 5.6 mmol/L (3.5-5.1) Chloride Level 101 mmol/L (98-107) 106 mmol/L (98-107) Carbon Dioxide Level 16 mmol/L (21-32) 24 mmol/L (21-32) Anion Gap 24 (6-14) 25 mmol/L (6-14) 9 (6-14) Blood Urea Nitrogen 17 mg/dL (8-26) 14 mg/dL (8-26) Creatinine 1.5 mg/dL (0.7-1.3) 1.1 mg/dL (0.7-1.3) Estimated GFR (Cockcroft-Gault) 47.7 68.3 BUN/Creatinine Ratio 11 (6-20) Glucose Level 224 mg/dL (70-99) 217 mg/dL (70-99) 224 mg/dL (70-99) Calcium Level 9.0 mg/dL (8.5-10.1) 7.2 mg/dL (8.5-10.1) Magnesium Level 2.0 mg/dL (1.8-2.4) Total Bilirubin 0.4 mg/dL (0.2-1.0) Aspartate Amino Transf (AST/SGOT) 190 U/L (15-37) Alanine Aminotransferase (ALT/SGPT) 221 U/L (16-63) Alkaline Phosphatase 55 U/L (46-116) Creatine Kinase 178 U/L (39-308) Creatine Kinase MB (Mass) 2.1 ng/mL (0.0-3.6) Creatine Kinase MB Relative Index 1.2 % (0-4) Troponin I Quantitative < 0.017 ng/mL (0.000-0.055) RY-Ajo-Q-Type Natriuretic Peptide 175 pg/mL (0-124) Total Protein 7.0 g/dL (6.4-8.2) Albumin 4.0 g/dL (3.4-5.0) Albumin/Globulin Ratio 1.3 (1.0-1.7) Lipase 131 U/L (73-393) Bedside Hemoglobin 12.2 g/dL (14-18) Bedside Hematocrit 36 % (37-52) Bedside Sodium 139 mmol/L (135-145) Bedside Potassium 2.7 mmol/L (3.5-5.0) Bedside Chloride 104 mmol/L (98-110) Bedside Total CO2 14 mmol/L (23-32) Bedside Blood Urea Nitrogen 15 mg/dL (8-26) Bedside Creatinine 1.2 mg/dL (0.5-1.4) Bedside Ionized Calcium (Hussain) 1.07 mmol/L (1.13-1.32) O2 Saturation 98 % (92-99) Arterial Blood pH 7.26 (7.35-7.45) Arterial Blood pCO2 at Patient Temp 37 mmHg (35-46) Arterial Blood pO2 at Patient Temp 161 mmHg (65-108) Arterial Blood HCO3 16 mmol/L (21-28) Arterial Blood Base Excess -10 mmol/L (-3-3) FiO2 80% Test 02/22/19 22:59 02/23/19 01:10 02/23/19 04:50 02/23/19 05:25 Glucose (Fingerstick) 169 mg/dL (70-99) White Blood Count 11.7 x10^3/uL (4.0-11.0) Red Blood Count 3.36 x10^6/uL (4.30-5.70) Hemoglobin 10.1 g/dL (13.0-17.5) Hematocrit 30.7 % (39.0-53.0) Mean Corpuscular Volume 92 fL (79-100) Mean Corpuscular Hemoglobin 30 pg (25-35) Mean Corpuscular Hemoglobin Concent 33 g/dL (31-37) Red Cell Distribution Width 14.0 % (11.5-14.5) Platelet Count 169 x10^3/uL (140-400) Neutrophils (%) (Auto) 70 % (31-73) Lymphocytes (%) (Auto) 21 % (24-48) Monocytes (%) (Auto) 8 % (0-9) Eosinophils (%) (Auto) 0 % (0-3) Basophils (%) (Auto) 0 % (0-3) Neutrophils # (Auto) 8.2 x10^3uL (1.8-7.7) Lymphocytes # (Auto) 2.5 x10^3/uL (1.0-4.8) Monocytes # (Auto) 1.0 x10^3/uL (0.0-1.1) Eosinophils # (Auto) 0.0 x10^3/uL (0.0-0.7) Basophils # (Auto) 0.1 x10^3/uL (0.0-0.2) Prothrombin Time 13.4 SEC (11.7-14.0) Prothromb Time International Ratio 1.1 (0.8-1.1) Activated Partial Thromboplast Time 29 SEC (24-38) Sodium Level 144 mmol/L (136-145) Potassium Level 4.1 mmol/L (3.5-5.1) Chloride Level 108 mmol/L (98-107) Carbon Dioxide Level 24 mmol/L (21-32) Anion Gap 12 (6-14) Blood Urea Nitrogen 13 mg/dL (8-26) Creatinine 0.9 mg/dL (0.7-1.3) Estimated GFR (Cockcroft-Gault) 86.1 Glucose Level 115 mg/dL (70-99) Calcium Level 7.3 mg/dL (8.5-10.1) Ionized Calcium 1.01 mmol/L (1.13-1.32) Phosphorus Level 1.9 mg/dL (2.6-4.7) Magnesium Level 2.2 mg/dL (1.8-2.4) Troponin I Quantitative 0.374 ng/mL (0.000-0.055) Urine Collection Type Unknown Urine Color Yellow Urine Clarity Clear Urine pH 6.0 Urine Specific Lacrosse >=1.030 Urine Protein 30 mg/dL (NEG-TRACE) Urine Glucose (UA) Negative mg/dL (NEG) Urine Ketones (Stick) Negative mg/dL (NEG) Urine Blood Moderate (NEG) Urine Nitrite Negative (NEG) Urine Bilirubin Negative (NEG) Urine Urobilinogen Dipstick 0.2 mg/dL (0.2 mg/dL) Urine Leukocyte Esterase Negative (NEG) Urine RBC 20-40 /HPF (0-2) Urine WBC Occ /HPF (0-4) Urine Squamous Epithelial Cells Few /LPF Urine Bacteria Few /HPF (0-FEW) Urine Opiates Screen Pos (NEG) Urine Methadone Screen Neg (NEG) Urine Barbiturates Neg (NEG) Urine Phencyclidine Screen Neg (NEG) Urine Amphetamine/Methamphetamine Neg (NEG) Urine Benzodiazepines Screen Pos (NEG) Urine Cocaine Screen Neg (NEG) Urine Cannabinoids Screen Neg (NEG) Urine Ethyl Alcohol Neg (NEG) Nasal Screen MRSA (PCR) Negative (Negative) Test 02/23/19 08:28 02/23/19 08:30 02/23/19 09:15 02/23/19 09:22 Glucose (Fingerstick) 198 mg/dL (70-99) 120 mg/dL (70-99) White Blood Count 8.1 x10^3/uL (4.0-11.0) Red Blood Count 3.07 x10^6/uL (4.30-5.70) Hemoglobin 9.4 g/dL (13.0-17.5) Hematocrit 28.1 % (39.0-53.0) Mean Corpuscular Volume 92 fL (79-100) Mean Corpuscular Hemoglobin 31 pg (25-35) Mean Corpuscular Hemoglobin Concent 34 g/dL (31-37) Red Cell Distribution Width 14.0 % (11.5-14.5) Platelet Count 142 x10^3/uL (140-400) Neutrophils (%) (Auto) 57 % (31-73) Lymphocytes (%) (Auto) 31 % (24-48) Monocytes (%) (Auto) 9 % (0-9) Eosinophils (%) (Auto) 2 % (0-3) Basophils (%) (Auto) 1 % (0-3) Neutrophils # (Auto) 4.6 x10^3uL (1.8-7.7) Lymphocytes # (Auto) 2.5 x10^3/uL (1.0-4.8) Monocytes # (Auto) 0.8 x10^3/uL (0.0-1.1) Eosinophils # (Auto) 0.1 x10^3/uL (0.0-0.7) Basophils # (Auto) 0.0 x10^3/uL (0.0-0.2) Prothrombin Time 14.0 SEC (11.7-14.0) Prothromb Time International Ratio 1.1 (0.8-1.1) Activated Partial Thromboplast Time 33 SEC (24-38) Sodium Level 141 mmol/L (136-145) Potassium Level 3.1 mmol/L (3.5-5.1) Chloride Level 107 mmol/L (98-107) Carbon Dioxide Level 21 mmol/L (21-32) Anion Gap 13 (6-14) Blood Urea Nitrogen 12 mg/dL (8-26) Creatinine 0.7 mg/dL (0.7-1.3) Estimated GFR (Cockcroft-Gault) 115.0 BUN/Creatinine Ratio 17 (6-20) Glucose Level 200 mg/dL (70-99) Calcium Level 6.3 mg/dL (8.5-10.1) Phosphorus Level 5.7 mg/dL (2.6-4.7) Magnesium Level 2.2 mg/dL (1.8-2.4) Total Bilirubin 0.3 mg/dL (0.2-1.0) Aspartate Amino Transf (AST/SGOT) 95 U/L (15-37) Alanine Aminotransferase (ALT/SGPT) 148 U/L (16-63) Alkaline Phosphatase 32 U/L (46-116) Troponin I Quantitative 0.307 ng/mL (0.000-0.055) Total Protein 4.2 g/dL (6.4-8.2) Albumin 2.5 g/dL (3.4-5.0) Albumin/Globulin Ratio 1.5 (1.0-1.7) O2 Saturation 99 % (92-99) Arterial Blood pH 7.50 (7.35-7.45) Arterial Blood pH (Temp corrected) 7.56 Arterial Blood pCO2 at Patient Temp 24 mmHg (35-46) Arterial Blood pCO2 (Temp correct) 20 mmHg Arterial Blood pO2 at Patient Temp 228 mmHg (65-108) Arterial Blood pO2 (Temp corrected) 207 mmHg Arterial Blood HCO3 18 mmol/L (21-28) Arterial Blood Base Excess -4 mmol/L (-3-3) FiO2 40 Test 02/23/19 14:57 02/23/19 15:00 02/23/19 18:50 02/23/19 18:52 Glucose (Fingerstick) 69 mg/dL (70-99) 91 mg/dL (70-99) Prothrombin Time 14.4 SEC (11.7-14.0) Prothromb Time International Ratio 1.2 (0.8-1.1) Activated Partial Thromboplast Time 39 SEC (24-38) Sodium Level 142 mmol/L (136-145) Potassium Level 4.3 mmol/L (3.5-5.1) Chloride Level 108 mmol/L (98-107) Carbon Dioxide Level 25 mmol/L (21-32) Anion Gap 9 (6-14) Blood Urea Nitrogen 12 mg/dL (8-26) Creatinine 0.8 mg/dL (0.7-1.3) Estimated GFR (Cockcroft-Gault) 98.6 Glucose Level 94 mg/dL (70-99) 98 mg/dL (70-99) Calcium Level 7.5 mg/dL (8.5-10.1) Ionized Calcium 1.04 mmol/L (1.13-1.32) Phosphorus Level 3.0 mg/dL (2.6-4.7) Magnesium Level 2.9 mg/dL (1.8-2.4) Test 02/23/19 20:55 02/23/19 20:59 White Blood Count 9.2 x10^3/uL (4.0-11.0) Red Blood Count 3.90 x10^6/uL (4.30-5.70) Hemoglobin 11.7 g/dL (13.0-17.5) Hematocrit 36.0 % (39.0-53.0) Mean Corpuscular Volume 92 fL (79-100) Mean Corpuscular Hemoglobin 30 pg (25-35) Mean Corpuscular Hemoglobin Concent 33 g/dL (31-37) Red Cell Distribution Width 14.3 % (11.5-14.5) Platelet Count 168 x10^3/uL (140-400) Neutrophils (%) (Auto) 74 % (31-73) Lymphocytes (%) (Auto) 17 % (24-48) Monocytes (%) (Auto) 8 % (0-9) Eosinophils (%) (Auto) 1 % (0-3) Basophils (%) (Auto) 0 % (0-3) Neutrophils # (Auto) 6.8 x10^3uL (1.8-7.7) Lymphocytes # (Auto) 1.6 x10^3/uL (1.0-4.8) Monocytes # (Auto) 0.7 x10^3/uL (0.0-1.1) Eosinophils # (Auto) 0.1 x10^3/uL (0.0-0.7) Basophils # (Auto) 0.0 x10^3/uL (0.0-0.2) Prothrombin Time 14.0 SEC (11.7-14.0) Prothromb Time International Ratio 1.1 (0.8-1.1) Activated Partial Thromboplast Time 36 SEC (24-38) Sodium Level 141 mmol/L (136-145) Potassium Level 4.7 mmol/L (3.5-5.1) Chloride Level 108 mmol/L (98-107) Carbon Dioxide Level 23 mmol/L (21-32) Anion Gap 10 (6-14) Blood Urea Nitrogen 11 mg/dL (8-26) Creatinine 0.8 mg/dL (0.7-1.3) Estimated GFR (Cockcroft-Gault) 98.6 Glucose Level 110 mg/dL (70-99) Calcium Level 7.2 mg/dL (8.5-10.1) Ionized Calcium 0.99 mmol/L (1.13-1.32) Magnesium Level 2.8 mg/dL (1.8-2.4) Glucose (Fingerstick) 105 mg/dL (70-99) Laboratory Tests Test 02/23/19 08:28 02/23/19 08:30 02/23/19 09:15 02/23/19 09:22 Glucose (Fingerstick) 198 mg/dL (70-99) 120 mg/dL (70-99) White Blood Count 8.1 x10^3/uL (4.0-11.0) Red Blood Count 3.07 x10^6/uL (4.30-5.70) Hemoglobin 9.4 g/dL (13.0-17.5) Hematocrit 28.1 % (39.0-53.0) Mean Corpuscular Volume 92 fL (79-100) Mean Corpuscular Hemoglobin 31 pg (25-35) Mean Corpuscular Hemoglobin Concent 34 g/dL (31-37) Red Cell Distribution Width 14.0 % (11.5-14.5) Platelet Count 142 x10^3/uL (140-400) Neutrophils (%) (Auto) 57 % (31-73) Lymphocytes (%) (Auto) 31 % (24-48) Monocytes (%) (Auto) 9 % (0-9) Eosinophils (%) (Auto) 2 % (0-3) Basophils (%) (Auto) 1 % (0-3) Neutrophils # (Auto) 4.6 x10^3uL (1.8-7.7) Lymphocytes # (Auto) 2.5 x10^3/uL (1.0-4.8) Monocytes # (Auto) 0.8 x10^3/uL (0.0-1.1) Eosinophils # (Auto) 0.1 x10^3/uL (0.0-0.7) Basophils # (Auto) 0.0 x10^3/uL (0.0-0.2) Prothrombin Time 14.0 SEC (11.7-14.0) Prothromb Time International Ratio 1.1 (0.8-1.1) Activated Partial Thromboplast Time 33 SEC (24-38) Sodium Level 141 mmol/L (136-145) Potassium Level 3.1 mmol/L (3.5-5.1) Chloride Level 107 mmol/L (98-107) Carbon Dioxide Level 21 mmol/L (21-32) Anion Gap 13 (6-14) Blood Urea Nitrogen 12 mg/dL (8-26) Creatinine 0.7 mg/dL (0.7-1.3) Estimated GFR (Cockcroft-Gault) 115.0 BUN/Creatinine Ratio 17 (6-20) Glucose Level 200 mg/dL (70-99) Calcium Level 6.3 mg/dL (8.5-10.1) Phosphorus Level 5.7 mg/dL (2.6-4.7) Magnesium Level 2.2 mg/dL (1.8-2.4) Total Bilirubin 0.3 mg/dL (0.2-1.0) Aspartate Amino Transf (AST/SGOT) 95 U/L (15-37) Alanine Aminotransferase (ALT/SGPT) 148 U/L (16-63) Alkaline Phosphatase 32 U/L (46-116) Troponin I Quantitative 0.307 ng/mL (0.000-0.055) Total Protein 4.2 g/dL (6.4-8.2) Albumin 2.5 g/dL (3.4-5.0) Albumin/Globulin Ratio 1.5 (1.0-1.7) O2 Saturation 99 % (92-99) Arterial Blood pH 7.50 (7.35-7.45) Arterial Blood pH (Temp corrected) 7.56 Arterial Blood pCO2 at Patient Temp 24 mmHg (35-46) Arterial Blood pCO2 (Temp correct) 20 mmHg Arterial Blood pO2 at Patient Temp 228 mmHg (65-108) Arterial Blood pO2 (Temp corrected) 207 mmHg Arterial Blood HCO3 18 mmol/L (21-28) Arterial Blood Base Excess -4 mmol/L (-3-3) FiO2 40 Test 02/23/19 14:57 02/23/19 15:00 02/23/19 18:50 02/23/19 18:52 Glucose (Fingerstick) 69 mg/dL (70-99) 91 mg/dL (70-99) Prothrombin Time 14.4 SEC (11.7-14.0) Prothromb Time International Ratio 1.2 (0.8-1.1) Activated Partial Thromboplast Time 39 SEC (24-38) Sodium Level 142 mmol/L (136-145) Potassium Level 4.3 mmol/L (3.5-5.1) Chloride Level 108 mmol/L (98-107) Carbon Dioxide Level 25 mmol/L (21-32) Anion Gap 9 (6-14) Blood Urea Nitrogen 12 mg/dL (8-26) Creatinine 0.8 mg/dL (0.7-1.3) Estimated GFR (Cockcroft-Gault) 98.6 Glucose Level 94 mg/dL (70-99) 98 mg/dL (70-99) Calcium Level 7.5 mg/dL (8.5-10.1) Ionized Calcium 1.04 mmol/L (1.13-1.32) Phosphorus Level 3.0 mg/dL (2.6-4.7) Magnesium Level 2.9 mg/dL (1.8-2.4) Test 02/23/19 20:55 02/23/19 20:59 White Blood Count 9.2 x10^3/uL (4.0-11.0) Red Blood Count 3.90 x10^6/uL (4.30-5.70) Hemoglobin 11.7 g/dL (13.0-17.5) Hematocrit 36.0 % (39.0-53.0) Mean Corpuscular Volume 92 fL (79-100) Mean Corpuscular Hemoglobin 30 pg (25-35) Mean Corpuscular Hemoglobin Concent 33 g/dL (31-37) Red Cell Distribution Width 14.3 % (11.5-14.5) Platelet Count 168 x10^3/uL (140-400) Neutrophils (%) (Auto) 74 % (31-73) Lymphocytes (%) (Auto) 17 % (24-48) Monocytes (%) (Auto) 8 % (0-9) Eosinophils (%) (Auto) 1 % (0-3) Basophils (%) (Auto) 0 % (0-3) Neutrophils # (Auto) 6.8 x10^3uL (1.8-7.7) Lymphocytes # (Auto) 1.6 x10^3/uL (1.0-4.8) Monocytes # (Auto) 0.7 x10^3/uL (0.0-1.1) Eosinophils # (Auto) 0.1 x10^3/uL (0.0-0.7) Basophils # (Auto) 0.0 x10^3/uL (0.0-0.2) Prothrombin Time 14.0 SEC (11.7-14.0) Prothromb Time International Ratio 1.1 (0.8-1.1) Activated Partial Thromboplast Time 36 SEC (24-38) Sodium Level 141 mmol/L (136-145) Potassium Level 4.7 mmol/L (3.5-5.1) Chloride Level 108 mmol/L (98-107) Carbon Dioxide Level 23 mmol/L (21-32) Anion Gap 10 (6-14) Blood Urea Nitrogen 11 mg/dL (8-26) Creatinine 0.8 mg/dL (0.7-1.3) Estimated GFR (Cockcroft-Gault) 98.6 Glucose Level 110 mg/dL (70-99) Calcium Level 7.2 mg/dL (8.5-10.1) Ionized Calcium 0.99 mmol/L (1.13-1.32) Magnesium Level 2.8 mg/dL (1.8-2.4) Glucose (Fingerstick) 105 mg/dL (70-99) Medications Current Medications Fentanyl Citrate (Fentanyl 2ml Vial) 100 mcg STK-MED ONCE .ROUTE ; Start 02/22/19 at 16:15; Stop 02/22/19 at 16:16; Status DC Sodium Chloride 1,000 ml @ 1,000 mls/hr 1X STAT IV Last administered on 02/22/19at 16:22; Start 02/22/19 at 16:21; Stop 02/22/19 at 17:20; Status DC Sodium Chloride 1,000 ml @ 1,000 mls/hr 1X ONCE IV Last administered on 02/22/19at 16:14; Start 02/22/19 at 16:30; Stop 02/22/19 at 17:29; Status DC Sodium Chloride 1,000 ml @ 1,000 mls/hr 1X ONCE IV Last administered on 02/22/19at 16:14; Start 02/22/19 at 16:30; Stop 02/22/19 at 17:29; Status DC Sodium Chloride 1,000 ml @ 1,000 mls/hr 1X ONCE IV Last administered on 02/22/19at 16:22; Start 02/22/19 at 16:30; Stop 02/22/19 at 17:29; Status DC Morphine Sulfate (Morphine Sulfate) 4 mg 1X ONCE IV Last administered on 02/22/19at 16:27; Start 02/22/19 at 16:30; Stop 02/22/19 at 16:31; Status DC Propofol (Diprivan) 200 mg 1X ONCE IV ; Start 02/22/19 at 16:45; Stop 02/22/19 at 16:46; Status DC Amiodarone HCl 150 mg/Dextrose 103 ml @ 618 mls/hr 1X ONCE IV ; Start 02/22/19 at 16:45; Stop 02/22/19 at 16:54; Status DC Amiodarone HCl 900 mg/Dextrose 518 ml @ 33 mls/hr CONT PRN IV SEE I/O RECORD Last administered on 02/23/19at 12:28; Start 02/22/19 at 16:45; Stop 02/23/19 at 12:28; Status DC Propofol 100 ml @ As Directed STK-MED ONCE IV ; Start 02/22/19 at 16:50; Stop 02/22/19 at 16:51; Status DC Potassium Chloride 40 meq/ Dextrose 1,020 ml @ 75 mls/hr 1X ONCE IV Last administered on 02/22/19at 17:50; Start 02/22/19 at 17:15; Stop 02/23/19 at 06:50; Status DC Etomidate (Amidate) 20 mg STK-MED ONCE IV ; Start 02/22/19 at 17:12; Stop 02/22/19 at 17:13; Status DC Rocuronium Saxon (Zemuron) 50 mg STK-MED ONCE .ROUTE ; Start 02/22/19 at 17:12; Stop 02/22/19 at 17:13; Status DC Labetalol HCl (Normodyne Iv Push) 20 mg 1X ONCE IVP ; Start 02/22/19 at 17:30; Stop 02/22/19 at 17:31; Status DC Potassium Chloride (KCl Oral Soln) 80 meq 1X ONCE NG Last administered on 02/22at 17:29; Start 02/22/19 at 17:30; Stop 02/22/19 at 17:31; Status DC Ondansetron HCl (Zofran) 4 mg PRN Q8HRS PRN IV NAUSEA/VOMITING; Start 02/22/19 at 17:15; Stop 02/23/19 at 17:14; Status DC Sodium Chloride 1,000 ml @ 75 mls/hr [id number] IV ; Start 02/22/19 at 17:15; Stop 02/23/19 at 06:26; Status DC Fentanyl Citrate (Fentanyl 2ml Vial) 100 mcg STK-MED ONCE .ROUTE ; Start at 17:37; Stop 02/22/19 at 17:38; Status DC Midazolam HCl (Versed) 5 mg STK-MED ONCE .ROUTE ; Start 02/22/19 at 17:58; Stop 02/22/19 at 17:59; Status DC Sodium Bicarbonate (Sodium Bicarb Adult 8.4% Syr) 50 meq STK-MED ONCE .ROUTE ; Start 02/22/19 at 18:08; Stop 02/22/19 at 18:09; Status DC Vecuronium Saxon (Norcuron Bolus) 10 mg STK-MED ONCE IV ; Start 02/22/19 at 19:25; Stop 02/22/19 at 19:26; Status DC Fentanyl Citrate (Fentanyl 2ml Vial) 100 mcg 1X ONCE IV ; Start 02/22/19 at 19:30; Stop 02/22/19 at 19:31; Status DC Midazolam HCl (Versed) 2 mg 1X ONCE IV Last administered on 02/22/19 21:01; Start 02/22/19 at 19:30; Stop 02/22/19 at 19:32; Status DC Magnesium Sulfate/ Dextrose 100 ml @ 100 mls/hr 1X ONCE IV Last administered on 02/22/19 21:09; Start 02/22/19 at 19:30; Stop 02/22/19 at 20:34; Status DC Buspirone HCl (Buspar) 30 mg Q8H NG Last administered on 02/24/19 03:31; Start 02/22/19 at 19:30; Stop 02/24/19 at 11:31 Acetaminophen (Tylenol) 650 mg Q4H NG Last administered on 02/24/19 07:26; Start 02/22/19 at 19:30 Artificial Tears (Artificial Tears) 1 drop Q6HRS OU Last administered on 02/24/19 06:03; Start 02/23/19 at 00:00 Artificial Tears (Artificial Tears) 1 drop PRN Q15MIN PRN OU DRY EYE; Start 02/22/19 at 19:30 Heparin Sodium (Porcine) (Heparin Sodium) 5,000 unit BID SQ Last administered on 02/23/19 21:17; Start 02/22/19 at 21:00 Fentanyl Citrate 30 ml @ 0 mls/hr CONT PRN IV PER PROTOCOL. Last administered on 02/24/19 05:05; Start 02/22/19 at 19:30 Propofol 100 ml @ 0 mls/hr CONT PRN IV PER PROTOCOL. Last administered on 02/22/19 21:11; Start 02/22/19 at 19:30 Midazolam HCl 100 ml @ 0 mls/hr CONT PRN IV PER PROTOCOL. Last administered on 02/23/19 12:38; Start 02/22/19 at 19:30 Vecuronium Saxon (Norcuron Bolus) 8 mg PRN Q1HR PRN IV SHIVERING Last administered on 5/30/19at 05:55; Start 02/22/19 at 19:30 Potassium Chloride/Water 100 ml @ 100 mls/hr Q1H IV Last administered on 02/22/19at 21:08; Start 02/22/19 at 20:00; Stop 02/22/19 at 23:59; Status DC Potassium Chloride/Dextrose/ Sod Cl 1,000 ml @ 100 mls/hr Q10H IV ; Start 02/22/19 at 19:45; Stop 02/23/19 at 05:34; Status DC Fentanyl Citrate (Fentanyl 2ml Vial) 100 mcg 1X ONCE IV Last administered on 02/22/19at 16:16; Start 02/22/19 at 20:30; Stop 02/22/19 at 20:34; Status DC Etomidate (Amidate) 20 mg 1X ONCE IV Last administered on 02/22/19at 16:31; Start 02/22/19 at 20:30; Stop 02/22/19 at 20:34; Status DC Rocuronium Saxon (Zemuron) 50 mg 1X ONCE IV Last administered on 02/22/19at 16:32; Start 02/22/19 at 20:30; Stop 02/22/19 at 20:34; Status DC Sodium Bicarbonate (Sodium Bicarb Adult 8.4% Syr) 50 meq 1X ONCE IV Last administered on 02/22/19at 18:11; Start 02/22/19 at 20:45; Stop 02/22/19 at 20:46; Status DC Fentanyl Citrate (Fentanyl 2ml Vial) 100 mcg 1X ONCE IV Last administered on 02/22/19at 17:39; Start 02/22/19 at 21:30; Stop 02/22/19 at 21:31; Status DC Midazolam HCl (Versed) 4 mg 1X ONCE IV Last administered on 02/22/19at 17:59; Start 02/22/19 at 21:30; Stop 02/22/19 at 21:31; Status DC Insulin Human Regular 150 unit/ Sodium Chloride 151.5 ml @ 0 mls/hr CONT PRN IV SEE I/O RECORD; Start 02/22/19 at 22:15 Sodium Chloride 1,000 ml @ 150 mls/hr Q6H40M IV Last administered on 02/24/19at 07:26; Start 02/22/19 at 22:30 Sodium Phosphate 10 mmol/Dextrose 253.3333 ml @ 64.167 m... 1X ONCE IV Last administered on 02/23/19at 06:24; Start 02/23/19 at 04:00; Stop 02/23/19 at 07:56; Status DC Magnesium Sulfate 50 ml @ 25 mls/hr 1X ONCE IV Last administered on 02/23/19at 04:04; Start 02/23/19 at 04:00; Stop 02/23/19 at 05:59; Status DC Iohexol (Omnipaque 350 Mg/ml) 100 ml 1X ONCE IV Last administered on 02/23/19at 09:58; Start 02/23/19 at 09:00; Stop 02/23/19 at 09:01; Status DC Info (CONTRAST GIVEN -- Rx MONITORING) 1 each PRN DAILY PRN MC SEE COMMENTS; Start 02/23/19 at 08:45; Stop 02/25/19 at 08:44 Magnesium Sulfate 50 ml @ 25 mls/hr 1X ONCE IV Last administered on 02/23/19at 10:40; Start 02/23/19 at 09:45; Stop 02/23/19 at 11:44; Status DC Potassium Chloride/Water 100 ml @ 100 mls/hr Q1H IV Last administered on 02/23/19at 10:41; Start 02/23/19 at 10:00; Stop 02/23/19 at 10:59; Status DC Atropine Sulfate (ATROPINE 1mg SYRINGE) 1 mg STK-MED ONCE .ROUTE ; Start 02/23/19 at 09:47; Stop 02/23/19 at 09:48; Status DC Famotidine (Pepcid) 20 mg QHS PO Last administered on 02/23/19at 19:45; Start 02/23/19 at 21:00 Ceftriaxone Sodium (Rocephin) 1 gm Q24H IVP Last administered on 02/23/19at 12:02; Start 02/23/19 at 11:30 Calcium Carbonate/ Glycine (Tums) 1,000 mg 1X ONCE PO Last administered on 02/23/19at 12:06; Start 02/23/19 at 11:45; Stop 02/23/19 at 11:47; Status DC Iohexol (Omnipaque 350 Mg/ml) 100 ml STK-MED ONCE .ROUTE ; Start 02/23/19 at 14:53; Stop 02/23/19 at 14:54; Status DC Magnesium Sulfate/ Dextrose 100 ml @ 100 mls/hr 1X ONCE IV Last administered on 02/23/19at 16:43; Start 02/23/19 at 16:45; Stop 02/23/19 at 17:44; Status DC Sodium Chloride 500 ml @ 500 mls/hr 1X ONCE IV Last administered on 02/23/19at 23:53; Start 02/23/19 at 23:45; Stop 02/24/19 at 00:44; Status DC Active Scripts Active Reported Quinapril Hcl 20 Mg Tablet 1 Tab PO DAILY Pravastatin Sodium 80 Mg Tablet 1 Tab PO DAILY Vitals/I & O Vital Sign - Last 24 Hours 02/23/19 02/23/19 02/23/19 02/23/19 09:00 09:00 09:04 10:00 Temp 91.1 90.7 Pulse 38 Resp 16 B/P (MAP) 86/58 (67) Pulse Ox 100 100 100 100 O2 Delivery Ventilator Ventilator Ventilator Ventilator 02/23/19 02/23/19 02/23/19 02/23/19 10:00 10:38 11:00 11:00 Temp 92.4 Pulse 38 44 Resp 16 17 B/P (MAP) 102/77 (85) 99/60 (73) Pulse Ox 100 100 100 100 O2 Delivery Ventilator Ventilator Ventilator Ventilator 02/23/19 02/23/19 02/23/19 02/23/19 12:00 12:00 12:00 12:37 Temp 93.3 Pulse 46 Resp 16 B/P (MAP) 87/64 (72) Pulse Ox 100 100 100 O2 Delivery Ventilator Ventilator Mechanical Ventilator Ventilator 02/23/19 02/23/19 02/23/19 02/23/19 13:00 13:00 14:00 14:00 Temp 92.7 91.0 Pulse 44 40 Resp 18 15 B/P (MAP) 91/57 (68) 93/55 (68) Pulse Ox 100 100 100 100 O2 Delivery Ventilator Ventilator Ventilator Ventilator 02/23/19 02/23/19 02/23/19 02/23/19 15:00 15:00 15:36 16:00 Temp 90.7 Pulse 44 Resp 15 B/P (MAP) 100/60 (73) Pulse Ox 100 100 100 O2 Delivery Ventilator Ventilator Ventilator Mechanical Ventilator 02/23/19 02/23/19 02/23/19 02/23/19 16:00 16:00 17:00 17:00 Temp 90.2 91.4 Pulse 48 52 Resp 16 14 B/P (MAP) 97/61 (73) 108/54 (72) Pulse Ox 100 100 100 100 O2 Delivery Ventilator Ventilator Ventilator Ventilator 02/23/19 02/23/19 02/23/19 02/23/19 18:00 18:00 18:03 19:00 Temp 93.5 92.8 Pulse 58 Resp 18 B/P (MAP) 92/48 (63) Pulse Ox 100 100 100 100 O2 Delivery Ventilator Ventilator Ventilator Ventilator 02/23/19 02/23/19 02/23/19 02/23/19 19:00 19:52 20:00 20:00 Temp 90.9 91.2 91.2 Pulse 52 48 Resp 16 20 B/P (MAP) 89/53 (65) 137/70 (92) Pulse Ox 100 100 100 100 O2 Delivery Ventilator Ventilator Ventilator Ventilator 02/23/19 02/23/19 02/23/19 02/23/19 20:00 21:00 21:00 21:30 Temp 89.7 89.7 Pulse 35 Resp 16 B/P (MAP) 137/67 (90) Pulse Ox 100 100 100 O2 Delivery Mechanical Ventilator Ventilator Ventilator Ventilator 02/23/19 02/23/19 02/23/19 02/23/19 21:30 22:00 22:00 22:30 Temp 90.3 Pulse 34 35 37 Resp 16 16 16 B/P (MAP) 111/66 (81) 107/56 (73) 100/50 (67) Pulse Ox 100 100 100 100 O2 Delivery Ventilator Ventilator Ventilator Ventilator 02/23/19 02/23/19 02/23/19 02/23/19 22:30 22:41 23:00 23:00 Temp 90.8 91.1 Pulse 40 Resp 16 16 B/P (MAP) 91/53 (66) Pulse Ox 100 100 100 100 O2 Delivery Ventilator Ventilator Ventilator Ventilator 02/23/19 02/23/19 02/23/19 02/23/19 23:30 23:30 23:32 23:45 Temp 91.5 Pulse 45 46 Resp 16 16 B/P (MAP) 80/50 (60) 78/51 (60) Pulse Ox 100 100 100 100 O2 Delivery Ventilator Ventilator Ventilator Ventilator 02/23/19 02/23/19 02/23/19 02/24/19 23:46 23:59 23:59 00:00 Temp 91.8 91.8 91.8 Pulse 48 Resp 16 B/P (MAP) 80/50 (60) 77/59 (65) Pulse Ox 100 100 O2 Delivery Ventilator Ventilator Mechanical Ventilator 02/24/19 02/24/19 02/24/19 02/24/19 00:15 00:30 00:30 01:00 Temp 92.2 Pulse 52 53 54 Resp 16 16 16 B/P (MAP) 83/51 (62) 92/51 (65) 87/56 (66) Pulse Ox 100 100 100 100 O2 Delivery Ventilator Ventilator Ventilator Ventilator 02/24/19 02/24/19 02/24/19 02/24/19 01:00 01:30 01:30 02:00 Temp 92.5 92.9 Pulse 54 57 Resp 16 16 B/P (MAP) 90/50 (63) 89/53 (65) Pulse Ox 100 100 100 100 O2 Delivery Ventilator Ventilator Ventilator Ventilator 02/24/19 02/24/19 02/24/19 02/24/19 02:00 02:30 02:30 03:00 Temp 93.4 Pulse 48 46 Resp 20 16 B/P (MAP) 96/55 (69) 103/55 (71) Pulse Ox 100 100 100 100 O2 Delivery Ventilator Ventilator Ventilator Ventilator 02/24/19 02/24/19 02/24/19 02/24/19 03:00 03:30 03:36 04:00 Temp 93.7 93.6 93.0 93.0 Pulse 44 Resp 16 B/P (MAP) 90/53 (65) Pulse Ox 100 100 100 100 O2 Delivery Ventilator Ventilator Ventilator Ventilator 02/24/19 02/24/19 02/24/19 02/24/19 04:00 04:00 04:30 05:00 Temp 92.7 93.0 93.9 B/P (MAP) Pulse Ox 100 100 100 O2 Delivery Ventilator Mechanical Ventilator Ventilator Ventilator 02/24/19 02/24/19 02/24/19 02/24/19 05:00 05:05 05:30 05:30 Temp 94.8 Pulse 55 52 Resp 16 16 16 B/P (MAP) 96/73 (81) 110/55 (73) Pulse Ox 100 100 100 100 O2 Delivery Ventilator Ventilator Ventilator Ventilator 02/24/19 02/24/19 02/24/19 02/24/19 05:40 05:51 06:00 06:00 Temp 95.4 Pulse 50 Resp 16 16 B/P (MAP) 103/51 (68) Pulse Ox 100 100 100 100 O2 Delivery Ventilator Ventilator Ventilator Ventilator 02/24/19 02/24/19 02/24/19 02/24/19 06:30 06:30 07:00 07:00 Temp 95.7 95.7 Pulse 47 47 Resp 16 16 B/P (MAP) 103/62 (76) 93/56 (68) Pulse Ox 100 100 100 100 O2 Delivery Ventilator Ventilator Ventilator Ventilator Intake and Output 02/23/19 02/23/19 02/24/19 14:59 22:59 06:59 Intake Total 593 ml 1879.94 ml 2189 ml Output Total 370 ml 380 ml 215 ml Balance 223 ml 1499.94 ml 1974 ml Images CTPA - 1. Exam is degraded by motion. There are dependent infiltrates bilaterally, also to a lesser degree posteriorly of the upper lobes greater on the right. No central pulmonary embolism is identified although cannot accurately exclude smaller emboli of the lower lobes bilaterally at which there is a greater degree of motion. 2. There is prominent reflux into the hepatic veins and azygos vein which can be associated with heart failure. AMINA DEL REAL MD February 24, 2019 08:12
--- NOTE | 2019-02-24 08:33 | NUR ---
SS following up with discharge planning. Pt accepted at [facility]. SS contacted [facility] transfer team at [phone] and [facility] and requested report be called into [phone]. Pt's RN notified and requested SS schedule transport for 1330. Transportation scheduled with [facility]. Packet, transfer form, and ambulance form on the chart. [facility] requested that RN notify them when ambulance is leaving with pt.
[2019-02-24 08:39] LABS: BASE EXCESS ABG -6 mmol/L (-3-3); HCO3 ABG 17 mmol/L (21-28); PCO2 ABG 26 mmHg (35-46); PO2 ABG 199 mmHg (65-108); SAT O2 ABG 99 % (92-99)
[2019-02-24 08:41] LABS: CORRECTED PCO2 ABG 24 mmHg; CORRECTED PH ABG 7.48; CORRECTED PO2 ABG 189 mmHg
[2019-02-24 08:46] LABS: HEMATOCRIT 32.7 % (39.0-53.0); HEMOGLOBIN 10.9 g/dL (13.0-17.5); RED BLOOD COUNT 3.53 x10^6/uL (4.30-5.70); RED CELL DISTRIBUTION WIDTH 14.5 % (11.5-14.5); WHITE BLOOD COUNT 9.3 x10^3/uL (4.0-11.0)
[2019-02-24 08:56] LABS: PROTHROMBIN TIME PATIENT 14.1 SEC (11.7-14.0)
[2019-02-24 09:11] LABS: ALBUMIN 2.5 g/dL (3.4-5.0); CALCIUM 7.9 mg/dL (8.5-10.1); CREATININE 0.8 mg/dL (0.7-1.3); GFR 98.6; MAGNESIUM 2.7 mg/dL (1.8-2.4); PHOSPHORUS 2.9 mg/dL (2.6-4.7); POTASSIUM 4.1 mmol/L (3.5-5.1); TOTAL BILIRUBIN 0.2 mg/dL (0.2-1.0); TOTAL PROTEIN 4.9 g/dL (6.4-8.2)
--- NOTE | 2019-02-24 09:26 | SNU/HH DC ---
DISCHARGE ORDERS DISCHARGE INFORMATION: DISCHARGE DATE: February 24, 2019 FINAL DIAGNOSIS Problems Medical Problems: (1) Cardiac arrest Status: Acute (2) Dehydration Status: Acute (3) Ventricular fibrillation Status: Acute CONDITION ON DISCHARGE: Stable CODE STATUS: Code Status: Full POST DISCHARGE ORDERS: ACTIVITY ORDERS: No restrictions WEIGHT BEARING STATUS: No restrictions DIET AFTER DISCHARGE: NPO CHECKS AFTER DISCHARGE: CHECKS AFTER DISCHARGE: Check blood press - daily FOLLOW-UP: PHYSICIAN FOLLOW-UP: Cardiology - Dr. Daniel TREATMENT/EQUIPMENT ORDERS: INFUSION EQUIPMENT NEEDED: IV Line RESPIRATORY EQUIPMENT NEEDED: Oxygen (INTUBATED) DISCHARGE MEDICATIONS: Home Meds Reported Medications Quinapril Hcl (QUINAPRIL HCL) 20 Mg Tablet, 1 TAB PO DAILY for hypertension, #30 TAB 5 Refills 02/23/19 Pravastatin Sodium (PRAVASTATIN SODIUM) 80 Mg Tablet, 1 TAB PO DAILY for hypercholesterolemia, #30 TAB 5 Refills 02/23/19 AMINA DEL REAL MD February 24, 2019 09:26
--- NOTE | 2019-02-24 09:28 | PDOC3 ---
Discharge Summary Visit Information Date of Admission: February 22, 2019 Date of Discharge: February 24, 2019 Admitting Diagnosis: Cardiac arrest Final Diagnosis Problems Medical Problems: (1) Cardiac arrest Status: Acute (2) Dehydration Status: Acute (3) Ventricular fibrillation Status: Acute Brief Hospital Course Allergies Allergies Coded Allergies Type Severity Reaction Last Updated Verified No Known Drug Allergies 02/22/19 No Vital Signs Vital Signs Date Time Temp Pulse Resp B/P (MAP) Pulse Ox O2 Delivery O2 Flow Rate FiO2 02/24/19 08:09 100 Ventilator 02/24/19 07:30 95.4 02/24/19 07:00 47 16 Lab Results Laboratory Tests Test 02/22/19 16:10 02/22/19 16:31 02/22/19 17:41 02/22/19 20:40 White Blood Count 12.8 x10^3/uL (4.0-11.0) Red Blood Count 3.99 x10^6/uL (4.30-5.70) Hemoglobin 12.0 g/dL (13.0-17.5) Hematocrit 36.7 % (39.0-53.0) Mean Corpuscular Volume 92 fL (79-100) Mean Corpuscular Hemoglobin 30 pg (25-35) Mean Corpuscular Hemoglobin Concent 33 g/dL (31-37) Red Cell Distribution Width 13.9 % (11.5-14.5) Platelet Count 252 x10^3/uL (140-400) Neutrophils (%) (Auto) 48 % (31-73) Lymphocytes (%) (Auto) 45 % (24-48) Monocytes (%) (Auto) 5 % (0-9) Eosinophils (%) (Auto) 1 % (0-3) Basophils (%) (Auto) 1 % (0-3) Neutrophils # (Auto) 6.1 x10^3uL (1.8-7.7) Lymphocytes # (Auto) 5.8 x10^3/uL (1.0-4.8) Monocytes # (Auto) 0.6 x10^3/uL (0.0-1.1) Eosinophils # (Auto) 0.1 x10^3/uL (0.0-0.7) Basophils # (Auto) 0.1 x10^3/uL (0.0-0.2) Prothrombin Time 12.5 SEC (11.7-14.0) Prothromb Time International Ratio 1.0 (0.8-1.1) Activated Partial Thromboplast Time 24 SEC (24-38) Sodium Level 141 mmol/L (136-145) 139 mmol/L (136-145) Potassium Level 2.7 mmol/L (3.5-5.1) 5.6 mmol/L (3.5-5.1) Chloride Level 101 mmol/L (98-107) 106 mmol/L (98-107) Carbon Dioxide Level 16 mmol/L (21-32) 24 mmol/L (21-32) Anion Gap 24 (6-14) 25 mmol/L (6-14) 9 (6-14) Blood Urea Nitrogen 17 mg/dL (8-26) 14 mg/dL (8-26) Creatinine 1.5 mg/dL (0.7-1.3) 1.1 mg/dL (0.7-1.3) Estimated GFR (Cockcroft-Gault) 47.7 68.3 BUN/Creatinine Ratio 11 (6-20) Glucose Level 224 mg/dL (70-99) 217 mg/dL (70-99) 224 mg/dL (70-99) Calcium Level 9.0 mg/dL (8.5-10.1) 7.2 mg/dL (8.5-10.1) Magnesium Level 2.0 mg/dL (1.8-2.4) Total Bilirubin 0.4 mg/dL (0.2-1.0) Aspartate Amino Transf (AST/SGOT) 190 U/L (15-37) Alanine Aminotransferase (ALT/SGPT) 221 U/L (16-63) Alkaline Phosphatase 55 U/L (46-116) Creatine Kinase 178 U/L (39-308) Creatine Kinase MB (Mass) 2.1 ng/mL (0.0-3.6) Creatine Kinase MB Relative Index 1.2 % (0-4) Troponin I Quantitative < 0.017 ng/mL (0.000-0.055) [id number]-Type Natriuretic Peptide 175 pg/mL (0-124) Total Protein 7.0 g/dL (6.4-8.2) Albumin 4.0 g/dL (3.4-5.0) Albumin/Globulin Ratio 1.3 (1.0-1.7) Lipase 131 U/L (73-393) Bedside Hemoglobin 12.2 g/dL (14-18) Bedside Hematocrit 36 % (37-52) Bedside Sodium 139 mmol/L (135-145) Bedside Potassium 2.7 mmol/L (3.5-5.0) Bedside Chloride 104 mmol/L (98-110) Bedside Total CO2 14 mmol/L (23-32) Bedside Blood Urea Nitrogen 15 mg/dL (8-26) Bedside Creatinine 1.2 mg/dL (0.5-1.4) Bedside Ionized Calcium (Hussain) 1.07 mmol/L (1.13-1.32) O2 Saturation 98 % (92-99) Arterial Blood pH 7.26 (7.35-7.45) Arterial Blood pCO2 at Patient Temp 37 mmHg (35-46) Arterial Blood pO2 at Patient Temp 161 mmHg (65-108) Arterial Blood HCO3 16 mmol/L (21-28) Arterial Blood Base Excess -10 mmol/L (-3-3) FiO2 80% Test 02/22/19 22:59 02/23/19 01:10 02/23/19 04:50 02/23/19 05:25 Glucose (Fingerstick) 169 mg/dL (70-99) White Blood Count 11.7 x10^3/uL (4.0-11.0) Red Blood Count 3.36 x10^6/uL (4.30-5.70) Hemoglobin 10.1 g/dL (13.0-17.5) Hematocrit 30.7 % (39.0-53.0) Mean Corpuscular Volume 92 fL (79-100) Mean Corpuscular Hemoglobin 30 pg (25-35) Mean Corpuscular Hemoglobin Concent 33 g/dL (31-37) Red Cell Distribution Width 14.0 % (11.5-14.5) Platelet Count 169 x10^3/uL (140-400) Neutrophils (%) (Auto) 70 % (31-73) Lymphocytes (%) (Auto) 21 % (24-48) Monocytes (%) (Auto) 8 % (0-9) Eosinophils (%) (Auto) 0 % (0-3) Basophils (%) (Auto) 0 % (0-3) Neutrophils # (Auto) 8.2 x10^3uL (1.8-7.7) Lymphocytes # (Auto) 2.5 x10^3/uL (1.0-4.8) Monocytes # (Auto) 1.0 x10^3/uL (0.0-1.1) Eosinophils # (Auto) 0.0 x10^3/uL (0.0-0.7) Basophils # (Auto) 0.1 x10^3/uL (0.0-0.2) Prothrombin Time 13.4 SEC (11.7-14.0) Prothromb Time International Ratio 1.1 (0.8-1.1) Activated Partial Thromboplast Time 29 SEC (24-38) Sodium Level 144 mmol/L (136-145) Potassium Level 4.1 mmol/L (3.5-5.1) Chloride Level 108 mmol/L (98-107) Carbon Dioxide Level 24 mmol/L (21-32) Anion Gap 12 (6-14) Blood Urea Nitrogen 13 mg/dL (8-26) Creatinine 0.9 mg/dL (0.7-1.3) Estimated GFR (Cockcroft-Gault) 86.1 Glucose Level 115 mg/dL (70-99) Calcium Level 7.3 mg/dL (8.5-10.1) Ionized Calcium 1.01 mmol/L (1.13-1.32) Phosphorus Level 1.9 mg/dL (2.6-4.7) Magnesium Level 2.2 mg/dL (1.8-2.4) Troponin I Quantitative 0.374 ng/mL (0.000-0.055) Urine Collection Type Unknown Urine Color Yellow Urine Clarity Clear Urine pH 6.0 Urine Specific [place] >=1.030 Urine Protein 30 mg/dL (NEG-TRACE) Urine Glucose (UA) Negative mg/dL (NEG) Urine Ketones (Stick) Negative mg/dL (NEG) Urine Blood Moderate (NEG) Urine Nitrite Negative (NEG) Urine Bilirubin Negative (NEG) Urine Urobilinogen Dipstick 0.2 mg/dL (0.2 mg/dL) Urine Leukocyte Esterase Negative (NEG) Urine RBC 20-40 /HPF (0-2) Urine WBC Occ /HPF (0-4) Urine Squamous Epithelial Cells Few /LPF Urine Bacteria Few /HPF (0-FEW) Urine Opiates Screen Pos (NEG) Urine Methadone Screen Neg (NEG) Urine Barbiturates Neg (NEG) Urine Phencyclidine Screen Neg (NEG) Urine Amphetamine/Methamphetamine Neg (NEG) Urine Benzodiazepines Screen Pos (NEG) Urine Cocaine Screen Neg (NEG) Urine Cannabinoids Screen Neg (NEG) Urine Ethyl Alcohol Neg (NEG) Nasal Screen MRSA (PCR) Negative (Negative) Test 02/23/19 08:28 02/23/19 08:30 02/23/19 09:15 02/23/19 09:22 Glucose (Fingerstick) 198 mg/dL (70-99) 120 mg/dL (70-99) White Blood Count 8.1 x10^3/uL (4.0-11.0) Red Blood Count 3.07 x10^6/uL (4.30-5.70) Hemoglobin 9.4 g/dL (13.0-17.5) Hematocrit 28.1 % (39.0-53.0) Mean Corpuscular Volume 92 fL (79-100) Mean Corpuscular Hemoglobin 31 pg (25-35) Mean Corpuscular Hemoglobin Concent 34 g/dL (31-37) Red Cell Distribution Width 14.0 % (11.5-14.5) Platelet Count 142 x10^3/uL (140-400) Neutrophils (%) (Auto) 57 % (31-73) Lymphocytes (%) (Auto) 31 % (24-48) Monocytes (%) (Auto) 9 % (0-9) Eosinophils (%) (Auto) 2 % (0-3) Basophils (%) (Auto) 1 % (0-3) Neutrophils # (Auto) 4.6 x10^3uL (1.8-7.7) Lymphocytes # (Auto) 2.5 x10^3/uL (1.0-4.8) Monocytes # (Auto) 0.8 x10^3/uL (0.0-1.1) Eosinophils # (Auto) 0.1 x10^3/uL (0.0-0.7) Basophils # (Auto) 0.0 x10^3/uL (0.0-0.2) Prothrombin Time 14.0 SEC (11.7-14.0) Prothromb Time International Ratio 1.1 (0.8-1.1) Activated Partial Thromboplast Time 33 SEC (24-38) Sodium Level 141 mmol/L (136-145) Potassium Level 3.1 mmol/L (3.5-5.1) Chloride Level 107 mmol/L (98-107) Carbon Dioxide Level 21 mmol/L (21-32) Anion Gap 13 (6-14) Blood Urea Nitrogen 12 mg/dL (8-26) Creatinine 0.7 mg/dL (0.7-1.3) Estimated GFR (Cockcroft-Gault) 115.0 BUN/Creatinine Ratio 17 (6-20) Glucose Level 200 mg/dL (70-99) Calcium Level 6.3 mg/dL (8.5-10.1) Phosphorus Level 5.7 mg/dL (2.6-4.7) Magnesium Level 2.2 mg/dL (1.8-2.4) Total Bilirubin 0.3 mg/dL (0.2-1.0) Aspartate Amino Transf (AST/SGOT) 95 U/L (15-37) Alanine Aminotransferase (ALT/SGPT) 148 U/L (16-63) Alkaline Phosphatase 32 U/L (46-116) Troponin I Quantitative 0.307 ng/mL (0.000-0.055) Total Protein 4.2 g/dL (6.4-8.2) Albumin 2.5 g/dL (3.4-5.0) Albumin/Globulin Ratio 1.5 (1.0-1.7) O2 Saturation 99 % (92-99) Arterial Blood pH 7.50 (7.35-7.45) Arterial Blood pH (Temp corrected) 7.56 Arterial Blood pCO2 at Patient Temp 24 mmHg (35-46) Arterial Blood pCO2 (Temp correct) 20 mmHg Arterial Blood pO2 at Patient Temp 228 mmHg (65-108) Arterial Blood pO2 (Temp corrected) 207 mmHg Arterial Blood HCO3 18 mmol/L (21-28) Arterial Blood Base Excess -4 mmol/L (-3-3) FiO2 40 Test 02/23/19 14:57 02/23/19 15:00 02/23/19 18:50 02/23/19 18:52 Glucose (Fingerstick) 69 mg/dL (70-99) 91 mg/dL (70-99) Prothrombin Time 14.4 SEC (11.7-14.0) Prothromb Time International Ratio 1.2 (0.8-1.1) Activated Partial Thromboplast Time 39 SEC (24-38) Sodium Level 142 mmol/L (136-145) Potassium Level 4.3 mmol/L (3.5-5.1) Chloride Level 108 mmol/L (98-107) Carbon Dioxide Level 25 mmol/L (21-32) Anion Gap 9 (6-14) Blood Urea Nitrogen 12 mg/dL (8-26) Creatinine 0.8 mg/dL (0.7-1.3) Estimated GFR (Cockcroft-Gault) 98.6 Glucose Level 94 mg/dL (70-99) 98 mg/dL (70-99) Calcium Level 7.5 mg/dL (8.5-10.1) Ionized Calcium 1.04 mmol/L (1.13-1.32) Phosphorus Level 3.0 mg/dL (2.6-4.7) Magnesium Level 2.9 mg/dL (1.8-2.4) Test 02/23/19 20:55 02/23/19 20:59 02/24/19 08:17 White Blood Count 9.2 x10^3/uL (4.0-11.0) 9.3 x10^3/uL (4.0-11.0) Red Blood Count 3.90 x10^6/uL (4.30-5.70) 3.53 x10^6/uL (4.30-5.70) Hemoglobin 11.7 g/dL (13.0-17.5) 10.9 g/dL (13.0-17.5) Hematocrit 36.0 % (39.0-53.0) 32.7 % (39.0-53.0) Mean Corpuscular Volume 92 fL (79-100) 93 fL (79-100) Mean Corpuscular Hemoglobin 30 pg (25-35) 31 pg (25-35) Mean Corpuscular Hemoglobin Concent 33 g/dL (31-37) 33 g/dL (31-37) Red Cell Distribution Width 14.3 % (11.5-14.5) 14.5 % (11.5-14.5) Platelet Count 168 x10^3/uL (140-400) 128 x10^3/uL (140-400) Neutrophils (%) (Auto) 74 % (31-73) Lymphocytes (%) (Auto) 17 % (24-48) Monocytes (%) (Auto) 8 % (0-9) Eosinophils (%) (Auto) 1 % (0-3) Basophils (%) (Auto) 0 % (0-3) Neutrophils # (Auto) 6.8 x10^3uL (1.8-7.7) Lymphocytes # (Auto) 1.6 x10^3/uL (1.0-4.8) Monocytes # (Auto) 0.7 x10^3/uL (0.0-1.1) Eosinophils # (Auto) 0.1 x10^3/uL (0.0-0.7) Basophils # (Auto) 0.0 x10^3/uL (0.0-0.2) Prothrombin Time 14.0 SEC (11.7-14.0) 14.1 SEC (11.7-14.0) Prothromb Time International Ratio 1.1 (0.8-1.1) 1.1 (0.8-1.1) Activated Partial Thromboplast Time 36 SEC (24-38) 41 SEC (24-38) Sodium Level 141 mmol/L (136-145) 144 mmol/L (136-145) Potassium Level 4.7 mmol/L (3.5-5.1) 4.1 mmol/L (3.5-5.1) Chloride Level 108 mmol/L (98-107) 111 mmol/L (98-107) Carbon Dioxide Level 23 mmol/L (21-32) 20 mmol/L (21-32) Anion Gap 10 (6-14) 13 (6-14) Blood Urea Nitrogen 11 mg/dL (8-26) 12 mg/dL (8-26) Creatinine 0.8 mg/dL (0.7-1.3) 0.8 mg/dL (0.7-1.3) Estimated GFR (Cockcroft-Gault) 98.6 98.6 Glucose Level 110 mg/dL (70-99) 83 mg/dL (70-99) Calcium Level 7.2 mg/dL (8.5-10.1) 7.9 mg/dL (8.5-10.1) Ionized Calcium 0.99 mmol/L (1.13-1.32) Magnesium Level 2.8 mg/dL (1.8-2.4) 2.7 mg/dL (1.8-2.4) Glucose (Fingerstick) 105 mg/dL (70-99) BUN/Creatinine Ratio 15 (6-20) Phosphorus Level 2.9 mg/dL (2.6-4.7) Total Bilirubin 0.2 mg/dL (0.2-1.0) Aspartate Amino Transf (AST/SGOT) 84 U/L (15-37) Alanine Aminotransferase (ALT/SGPT) 153 U/L (16-63) Alkaline Phosphatase 41 U/L (46-116) Total Protein 4.9 g/dL (6.4-8.2) Albumin 2.5 g/dL (3.4-5.0) Albumin/Globulin Ratio 1.0 (1.0-1.7) Laboratory Tests Test 02/23/19 14:57 02/23/19 15:00 02/23/19 18:50 02/23/19 18:52 Glucose (Fingerstick) 69 mg/dL (70-99) 91 mg/dL (70-99) Prothrombin Time 14.4 SEC (11.7-14.0) Prothromb Time International Ratio 1.2 (0.8-1.1) Activated Partial Thromboplast Time 39 SEC (24-38) Sodium Level 142 mmol/L (136-145) Potassium Level 4.3 mmol/L (3.5-5.1) Chloride Level 108 mmol/L (98-107) Carbon Dioxide Level 25 mmol/L (21-32) Anion Gap 9 (6-14) Blood Urea Nitrogen 12 mg/dL (8-26) Creatinine 0.8 mg/dL (0.7-1.3) Estimated GFR (Cockcroft-Gault) 98.6 Glucose Level 94 mg/dL (70-99) 98 mg/dL (70-99) Calcium Level 7.5 mg/dL (8.5-10.1) Ionized Calcium 1.04 mmol/L (1.13-1.32) Phosphorus Level 3.0 mg/dL (2.6-4.7) Magnesium Level 2.9 mg/dL (1.8-2.4) Test 02/23/19 20:55 02/23/19 20:59 02/24/19 08:17 White Blood Count 9.2 x10^3/uL (4.0-11.0) 9.3 x10^3/uL (4.0-11.0) Red Blood Count 3.90 x10^6/uL (4.30-5.70) 3.53 x10^6/uL (4.30-5.70) Hemoglobin 11.7 g/dL (13.0-17.5) 10.9 g/dL (13.0-17.5) Hematocrit 36.0 % (39.0-53.0) 32.7 % (39.0-53.0) Mean Corpuscular Volume 92 fL (79-100) 93 fL (79-100) Mean Corpuscular Hemoglobin 30 pg (25-35) 31 pg (25-35) Mean Corpuscular Hemoglobin Concent 33 g/dL (31-37) 33 g/dL (31-37) Red Cell Distribution Width 14.3 % (11.5-14.5) 14.5 % (11.5-14.5) Platelet Count 168 x10^3/uL (140-400) 128 x10^3/uL (140-400) Neutrophils (%) (Auto) 74 % (31-73) Lymphocytes (%) (Auto) 17 % (24-48) Monocytes (%) (Auto) 8 % (0-9) Eosinophils (%) (Auto) 1 % (0-3) Basophils (%) (Auto) 0 % (0-3) Neutrophils # (Auto) 6.8 x10^3uL (1.8-7.7) Lymphocytes # (Auto) 1.6 x10^3/uL (1.0-4.8) Monocytes # (Auto) 0.7 x10^3/uL (0.0-1.1) Eosinophils # (Auto) 0.1 x10^3/uL (0.0-0.7) Basophils # (Auto) 0.0 x10^3/uL (0.0-0.2) Prothrombin Time 14.0 SEC (11.7-14.0) 14.1 SEC (11.7-14.0) Prothromb Time International Ratio 1.1 (0.8-1.1) 1.1 (0.8-1.1) Activated Partial Thromboplast Time 36 SEC (24-38) 41 SEC (24-38) Sodium Level 141 mmol/L (136-145) 144 mmol/L (136-145) Potassium Level 4.7 mmol/L (3.5-5.1) 4.1 mmol/L (3.5-5.1) Chloride Level 108 mmol/L (98-107) 111 mmol/L (98-107) Carbon Dioxide Level 23 mmol/L (21-32) 20 mmol/L (21-32) Anion Gap 10 (6-14) 13 (6-14) Blood Urea Nitrogen 11 mg/dL (8-26) 12 mg/dL (8-26) Creatinine 0.8 mg/dL (0.7-1.3) 0.8 mg/dL (0.7-1.3) Estimated GFR (Cockcroft-Gault) 98.6 98.6 Glucose Level 110 mg/dL (70-99) 83 mg/dL (70-99) Calcium Level 7.2 mg/dL (8.5-10.1) 7.9 mg/dL (8.5-10.1) Ionized Calcium 0.99 mmol/L (1.13-1.32) Magnesium Level 2.8 mg/dL (1.8-2.4) 2.7 mg/dL (1.8-2.4) Glucose (Fingerstick) 105 mg/dL (70-99) BUN/Creatinine Ratio 15 (6-20) Phosphorus Level 2.9 mg/dL (2.6-4.7) Total Bilirubin 0.2 mg/dL (0.2-1.0) Aspartate Amino Transf (AST/SGOT) 84 U/L (15-37) Alanine Aminotransferase (ALT/SGPT) 153 U/L (16-63) Alkaline Phosphatase 41 U/L (46-116) Total Protein 4.9 g/dL (6.4-8.2) Albumin 2.5 g/dL (3.4-5.0) Albumin/Globulin Ratio 1.0 (1.0-1.7) Brief Hospital Course Mr. Snell is a 58 yo athletic appearing male brought by EMS status post cardiac arrest after collapsing following a 5K race. He became unresponsive, pulseless, CPR initiated, EMS called, in VF when they arrived, shocked once, ROSC achieved. He was agitated, moaning, moving, appeared in pain, was tachycardia and intubated in ER. S/p cardiology consultation. Other than sinus tachycardia and very mild troponin elevation 0.3 the suspicion for etiology is metabolic derangement, hypokalemia 2 .9, replaced, or possible thrombosis. Has been stable on the vent on hypothermia protocol will start rewarming this morning. Labs improved. CTPA and bilateral LE venous dopplers were negative for acute thrombus yesterday. Phos, mag, K and calcium replete yesterday. Seen by neurology and pulmonology as well. His was diagnosed with recurrent lung cancer and he has been under a lot of stress, his daughter also notes he has been regularly taking miralax, otherwise does not take diuretics to explain his electrolyte abnormalities on admission. Was noted on CT chest with infiltrates in bilateral upper lobes, covered with antibiotics for this. His echocardiogram revealed an EF 45-50%. His arterial blood gases showed a pH of 7.26 initially with a pCO2 of 37; pO2 161 with bicarb of 16, now is 7.50; pCO2 of 24 and a pO2 of 228 on 40% FiO2. He is currently on assist-control rate of 16. Sedated on versed and fentanyl per critical care. D/w family bedside. His spouse works at [facility] and has requested transfer th ere, which I have explained we can accommodate once more stable. He will need coronary angiography as other etiologies have been assessed and treated for his ventricular fibrillation arrest. A/P: Cardiac arrest in the field - s/p hypothermia protocol. Did require low dose dopamine today V tach - consulted cardiology, unsure of CV hx Critical hypokalemia, hypocalcemia, hypophosphatemia, replaced EMA - vasomotor nephropathy Transaminitis, NOS - uncertain etiology, likely from early cardiogenic shock ICU admit, on vent cooling protocol to stop at 1115 supportive care. D/w family bedside 37 min CC time Discharge Information Condition at Discharge: Comment (Critically ill) Follow Up: As Needed (Daily) Disposition/Orders: D/C to Another Facility ([facility]) Scheduled Pravastatin Sodium (Pravastatin Sodium) 80 Mg Tablet, 1 TAB PO DAILY for hypercholesterolemia, #30 Ref 5 (Reported) Entered as Reported by: NEREYDA HUYNH on 02/23/19317 Last Taken: UNKNOWN on Unknown Date & Time Last Action: New Order on 02/23/19317 by NEREYDA HUYNH Quinapril Hcl (Quinapril Hcl) 20 Mg Tablet, 1 TAB PO DAILY for hypertension, #30 Ref 5 (Reported) Entered as Reported by: NEREYDA HUYNH on 02/23/19317 Last Taken: UNKNOWN on Unknown Date & Time Last Action: New Order on 02/23/19317 by AMINA HANNAH MD February 24, 2019 09:28
[2019-02-24] MEDS ORDERED: NOREPINEPHRIN 8MG/250ML PREMIX 250 ML IV PRN (09:30)
[2019-02-24 09:41] LABS: FIO2 ABG 40
[2019-02-24] MEDS: HEPARIN for SUB-Q USE 5,000 UNIT/ML VIAL. SQ SCH (11:06)
[2019-02-24] MEDS: MIDAZOLAM 100mg/100ml NS BAG 100 ML IV PRN (11:07)
--- NOTE | 2019-02-24 11:19 | PDOC ---
PULMONARY PROGRESS NOTES Subjective ac MODE SEDATED BEING RE WARMED Vitals Vital Signs Date Time Temp Pulse Resp B/P (MAP) Pulse Ox O2 Delivery O2 Flow Rate FiO2 02/24/19 10:00 97.2 100 Ventilator 02/24/19 10:00 56 18 Lungs: Clear Cardiovascular: S1 Abdomen: Soft Extremities: No Edema Skin: Warm Labs Laboratory Tests Test 02/22/19 16:10 02/22/19 16:31 02/22/19 17:41 02/22/19 20:40 White Blood Count 12.8 x10^3/uL (4.0-11.0) Red Blood Count 3.99 x10^6/uL (4.30-5.70) Hemoglobin 12.0 g/dL (13.0-17.5) Hematocrit 36.7 % (39.0-53.0) Mean Corpuscular Volume 92 fL (79-100) Mean Corpuscular Hemoglobin 30 pg (25-35) Mean Corpuscular Hemoglobin Concent 33 g/dL (31-37) Red Cell Distribution Width 13.9 % (11.5-14.5) Platelet Count 252 x10^3/uL (140-400) Neutrophils (%) (Auto) 48 % (31-73) Lymphocytes (%) (Auto) 45 % (24-48) Monocytes (%) (Auto) 5 % (0-9) Eosinophils (%) (Auto) 1 % (0-3) Basophils (%) (Auto) 1 % (0-3) Neutrophils # (Auto) 6.1 x10^3uL (1.8-7.7) Lymphocytes # (Auto) 5.8 x10^3/uL (1.0-4.8) Monocytes # (Auto) 0.6 x10^3/uL (0.0-1.1) Eosinophils # (Auto) 0.1 x10^3/uL (0.0-0.7) Basophils # (Auto) 0.1 x10^3/uL (0.0-0.2) Prothrombin Time 12.5 SEC (11.7-14.0) Prothromb Time International Ratio 1.0 (0.8-1.1) Activated Partial Thromboplast Time 24 SEC (24-38) Sodium Level 141 mmol/L (136-145) 139 mmol/L (136-145) Potassium Level 2.7 mmol/L (3.5-5.1) 5.6 mmol/L (3.5-5.1) Chloride Level 101 mmol/L (98-107) 106 mmol/L (98-107) Carbon Dioxide Level 16 mmol/L (21-32) 24 mmol/L (21-32) Anion Gap 24 (6-14) 25 mmol/L (6-14) 9 (6-14) Blood Urea Nitrogen 17 mg/dL (8-26) 14 mg/dL (8-26) Creatinine 1.5 mg/dL (0.7-1.3) 1.1 mg/dL (0.7-1.3) Estimated GFR (Cockcroft-Gault) 47.7 68.3 BUN/Creatinine Ratio 11 (6-20) Glucose Level 224 mg/dL (70-99) 217 mg/dL (70-99) 224 mg/dL (70-99) Calcium Level 9.0 mg/dL (8.5-10.1) 7.2 mg/dL (8.5-10.1) Magnesium Level 2.0 mg/dL (1.8-2.4) Total Bilirubin 0.4 mg/dL (0.2-1.0) Aspartate Amino Transf (AST/SGOT) 190 U/L (15-37) Alanine Aminotransferase (ALT/SGPT) 221 U/L (16-63) Alkaline Phosphatase 55 U/L (46-116) Creatine Kinase 178 U/L (39-308) Creatine Kinase MB (Mass) 2.1 ng/mL (0.0-3.6) Creatine Kinase MB Relative Index 1.2 % (0-4) Troponin I Quantitative < 0.017 ng/mL (0.000-0.055) XV-Azs-M-Type Natriuretic Peptide 175 pg/mL (0-124) Total Protein 7.0 g/dL (6.4-8.2) Albumin 4.0 g/dL (3.4-5.0) Albumin/Globulin Ratio 1.3 (1.0-1.7) Lipase 131 U/L (73-393) Bedside Hemoglobin 12.2 g/dL (14-18) Bedside Hematocrit 36 % (37-52) Bedside Sodium 139 mmol/L (135-145) Bedside Potassium 2.7 mmol/L (3.5-5.0) Bedside Chloride 104 mmol/L (98-110) Bedside Total CO2 14 mmol/L (23-32) Bedside Blood Urea Nitrogen 15 mg/dL (8-26) Bedside Creatinine 1.2 mg/dL (0.5-1.4) Bedside Ionized Calcium (Hussain) 1.07 mmol/L (1.13-1.32) O2 Saturation 98 % (92-99) Arterial Blood pH 7.26 (7.35-7.45) Arterial Blood pCO2 at Patient Temp 37 mmHg (35-46) Arterial Blood pO2 at Patient Temp 161 mmHg (65-108) Arterial Blood HCO3 16 mmol/L (21-28) Arterial Blood Base Excess -10 mmol/L (-3-3) FiO2 80% Test 02/22/19 22:59 02/23/19 01:10 02/23/19 04:50 02/23/19 05:25 Glucose (Fingerstick) 169 mg/dL (70-99) White Blood Count 11.7 x10^3/uL (4.0-11.0) Red Blood Count 3.36 x10^6/uL (4.30-5.70) Hemoglobin 10.1 g/dL (13.0-17.5) Hematocrit 30.7 % (39.0-53.0) Mean Corpuscular Volume 92 fL (79-100) Mean Corpuscular Hemoglobin 30 pg (25-35) Mean Corpuscular Hemoglobin Concent 33 g/dL (31-37) Red Cell Distribution Width 14.0 % (11.5-14.5) Platelet Count 169 x10^3/uL (140-400) Neutrophils (%) (Auto) 70 % (31-73) Lymphocytes (%) (Auto) 21 % (24-48) Monocytes (%) (Auto) 8 % (0-9) Eosinophils (%) (Auto) 0 % (0-3) Basophils (%) (Auto) 0 % (0-3) Neutrophils # (Auto) 8.2 x10^3uL (1.8-7.7) Lymphocytes # (Auto) 2.5 x10^3/uL (1.0-4.8) Monocytes # (Auto) 1.0 x10^3/uL (0.0-1.1) Eosinophils # (Auto) 0.0 x10^3/uL (0.0-0.7) Basophils # (Auto) 0.1 x10^3/uL (0.0-0.2) Prothrombin Time 13.4 SEC (11.7-14.0) Prothromb Time International Ratio 1.1 (0.8-1.1) Activated Partial Thromboplast Time 29 SEC (24-38) Sodium Level 144 mmol/L (136-145) Potassium Level 4.1 mmol/L (3.5-5.1) Chloride Level 108 mmol/L (98-107) Carbon Dioxide Level 24 mmol/L (21-32) Anion Gap 12 (6-14) Blood Urea Nitrogen 13 mg/dL (8-26) Creatinine 0.9 mg/dL (0.7-1.3) Estimated GFR (Cockcroft-Gault) 86.1 Glucose Level 115 mg/dL (70-99) Calcium Level 7.3 mg/dL (8.5-10.1) Ionized Calcium 1.01 mmol/L (1.13-1.32) Phosphorus Level 1.9 mg/dL (2.6-4.7) Magnesium Level 2.2 mg/dL (1.8-2.4) Troponin I Quantitative 0.374 ng/mL (0.000-0.055) Urine Collection Type Unknown Urine Color Yellow Urine Clarity Clear Urine pH 6.0 Urine Specific Reading >=1.030 Urine Protein 30 mg/dL (NEG-TRACE) Urine Glucose (UA) Negative mg/dL (NEG) Urine Ketones (Stick) Negative mg/dL (NEG) Urine Blood Moderate (NEG) Urine Nitrite Negative (NEG) Urine Bilirubin Negative (NEG) Urine Urobilinogen Dipstick 0.2 mg/dL (0.2 mg/dL) Urine Leukocyte Esterase Negative (NEG) Urine RBC 20-40 /HPF (0-2) Urine WBC Occ /HPF (0-4) Urine Squamous Epithelial Cells Few /LPF Urine Bacteria Few /HPF (0-FEW) Urine Opiates Screen Pos (NEG) Urine Methadone Screen Neg (NEG) Urine Barbiturates Neg (NEG) Urine Phencyclidine Screen Neg (NEG) Urine Amphetamine/Methamphetamine Neg (NEG) Urine Benzodiazepines Screen Pos (NEG) Urine Cocaine Screen Neg (NEG) Urine Cannabinoids Screen Neg (NEG) Urine Ethyl Alcohol Neg (NEG) Nasal Screen MRSA (PCR) Negative (Negative) Test 02/23/19 08:28 02/23/19 08:30 02/23/19 09:15 02/23/19 09:22 Glucose (Fingerstick) 198 mg/dL (70-99) 120 mg/dL (70-99) White Blood Count 8.1 x10^3/uL (4.0-11.0) Red Blood Count 3.07 x10^6/uL (4.30-5.70) Hemoglobin 9.4 g/dL (13.0-17.5) Hematocrit 28.1 % (39.0-53.0) Mean Corpuscular Volume 92 fL (79-100) Mean Corpuscular Hemoglobin 31 pg (25-35) Mean Corpuscular Hemoglobin Concent 34 g/dL (31-37) Red Cell Distribution Width 14.0 % (11.5-14.5) Platelet Count 142 x10^3/uL (140-400) Neutrophils (%) (Auto) 57 % (31-73) Lymphocytes (%) (Auto) 31 % (24-48) Monocytes (%) (Auto) 9 % (0-9) Eosinophils (%) (Auto) 2 % (0-3) Basophils (%) (Auto) 1 % (0-3) Neutrophils # (Auto) 4.6 x10^3uL (1.8-7.7) Lymphocytes # (Auto) 2.5 x10^3/uL (1.0-4.8) Monocytes # (Auto) 0.8 x10^3/uL (0.0-1.1) Eosinophils # (Auto) 0.1 x10^3/uL (0.0-0.7) Basophils # (Auto) 0.0 x10^3/uL (0.0-0.2) Prothrombin Time 14.0 SEC (11.7-14.0) Prothromb Time International Ratio 1.1 (0.8-1.1) Activated Partial Thromboplast Time 33 SEC (24-38) Sodium Level 141 mmol/L (136-145) Potassium Level 3.1 mmol/L (3.5-5.1) Chloride Level 107 mmol/L (98-107) Carbon Dioxide Level 21 mmol/L (21-32) Anion Gap 13 (6-14) Blood Urea Nitrogen 12 mg/dL (8-26) Creatinine 0.7 mg/dL (0.7-1.3) Estimated GFR (Cockcroft-Gault) 115.0 BUN/Creatinine Ratio 17 (6-20) Glucose Level 200 mg/dL (70-99) Calcium Level 6.3 mg/dL (8.5-10.1) Phosphorus Level 5.7 mg/dL (2.6-4.7) Magnesium Level 2.2 mg/dL (1.8-2.4) Total Bilirubin 0.3 mg/dL (0.2-1.0) Aspartate Amino Transf (AST/SGOT) 95 U/L (15-37) Alanine Aminotransferase (ALT/SGPT) 148 U/L (16-63) Alkaline Phosphatase 32 U/L (46-116) Troponin I Quantitative 0.307 ng/mL (0.000-0.055) Total Protein 4.2 g/dL (6.4-8.2) Albumin 2.5 g/dL (3.4-5.0) Albumin/Globulin Ratio 1.5 (1.0-1.7) O2 Saturation 99 % (92-99) Arterial Blood pH 7.50 (7.35-7.45) Arterial Blood pH (Temp corrected) 7.56 Arterial Blood pCO2 at Patient Temp 24 mmHg (35-46) Arterial Blood pCO2 (Temp correct) 20 mmHg Arterial Blood pO2 at Patient Temp 228 mmHg (65-108) Arterial Blood pO2 (Temp corrected) 207 mmHg Arterial Blood HCO3 18 mmol/L (21-28) Arterial Blood Base Excess -4 mmol/L (-3-3) FiO2 40 Test 02/23/19 14:57 02/23/19 15:00 02/23/19 18:50 02/23/19 18:52 Glucose (Fingerstick) 69 mg/dL (70-99) 91 mg/dL (70-99) Prothrombin Time 14.4 SEC (11.7-14.0) Prothromb Time International Ratio 1.2 (0.8-1.1) Activated Partial Thromboplast Time 39 SEC (24-38) Sodium Level 142 mmol/L (136-145) Potassium Level 4.3 mmol/L (3.5-5.1) Chloride Level 108 mmol/L (98-107) Carbon Dioxide Level 25 mmol/L (21-32) Anion Gap 9 (6-14) Blood Urea Nitrogen 12 mg/dL (8-26) Creatinine 0.8 mg/dL (0.7-1.3) Estimated GFR (Cockcroft-Gault) 98.6 Glucose Level 94 mg/dL (70-99) 98 mg/dL (70-99) Calcium Level 7.5 mg/dL (8.5-10.1) Ionized Calcium 1.04 mmol/L (1.13-1.32) Phosphorus Level 3.0 mg/dL (2.6-4.7) Magnesium Level 2.9 mg/dL (1.8-2.4) Test 02/23/19 20:55 02/23/19 20:59 02/24/19 08:00 02/24/19 08:17 White Blood Count 9.2 x10^3/uL (4.0-11.0) 9.3 x10^3/uL (4.0-11.0) Red Blood Count 3.90 x10^6/uL (4.30-5.70) 3.53 x10^6/uL (4.30-5.70) Hemoglobin 11.7 g/dL (13.0-17.5) 10.9 g/dL (13.0-17.5) Hematocrit 36.0 % (39.0-53.0) 32.7 % (39.0-53.0) Mean Corpuscular Volume 92 fL (79-100) 93 fL (79-100) Mean Corpuscular Hemoglobin 30 pg (25-35) 31 pg (25-35) Mean Corpuscular Hemoglobin Concent 33 g/dL (31-37) 33 g/dL (31-37) Red Cell Distribution Width 14.3 % (11.5-14.5) 14.5 % (11.5-14.5) Platelet Count 168 x10^3/uL (140-400) 128 x10^3/uL (140-400) Neutrophils (%) (Auto) 74 % (31-73) Lymphocytes (%) (Auto) 17 % (24-48) Monocytes (%) (Auto) 8 % (0-9) Eosinophils (%) (Auto) 1 % (0-3) Basophils (%) (Auto) 0 % (0-3) Neutrophils # (Auto) 6.8 x10^3uL (1.8-7.7) Lymphocytes # (Auto) 1.6 x10^3/uL (1.0-4.8) Monocytes # (Auto) 0.7 x10^3/uL (0.0-1.1) Eosinophils # (Auto) 0.1 x10^3/uL (0.0-0.7) Basophils # (Auto) 0.0 x10^3/uL (0.0-0.2) Prothrombin Time 14.0 SEC (11.7-14.0) 14.1 SEC (11.7-14.0) Prothromb Time International Ratio 1.1 (0.8-1.1) 1.1 (0.8-1.1) Activated Partial Thromboplast Time 36 SEC (24-38) 41 SEC (24-38) Sodium Level 141 mmol/L (136-145) 144 mmol/L (136-145) Potassium Level 4.7 mmol/L (3.5-5.1) 4.1 mmol/L (3.5-5.1) Chloride Level 108 mmol/L (98-107) 111 mmol/L (98-107) Carbon Dioxide Level 23 mmol/L (21-32) 20 mmol/L (21-32) Anion Gap 10 (6-14) 13 (6-14) Blood Urea Nitrogen 11 mg/dL (8-26) 12 mg/dL (8-26) Creatinine 0.8 mg/dL (0.7-1.3) 0.8 mg/dL (0.7-1.3) Estimated GFR (Cockcroft-Gault) 98.6 98.6 Glucose Level 110 mg/dL (70-99) 83 mg/dL (70-99) Calcium Level 7.2 mg/dL (8.5-10.1) 7.9 mg/dL (8.5-10.1) Ionized Calcium 0.99 mmol/L (1.13-1.32) Magnesium Level 2.8 mg/dL (1.8-2.4) 2.7 mg/dL (1.8-2.4) Glucose (Fingerstick) 105 mg/dL (70-99) O2 Saturation 99 % (92-99) Arterial Blood pH 7.45 (7.35-7.45) Arterial Blood pH (Temp corrected) 7.48 Arterial Blood pCO2 at Patient Temp 26 mmHg (35-46) Arterial Blood pCO2 (Temp correct) 24 mmHg Arterial Blood pO2 at Patient Temp 199 mmHg (65-108) Arterial Blood pO2 (Temp corrected) 189 mmHg Arterial Blood HCO3 17 mmol/L (21-28) Arterial Blood Base Excess -6 mmol/L (-3-3) FiO2 40 BUN/Creatinine Ratio 15 (6-20) Phosphorus Level 2.9 mg/dL (2.6-4.7) Total Bilirubin 0.2 mg/dL (0.2-1.0) Aspartate Amino Transf (AST/SGOT) 84 U/L (15-37) Alanine Aminotransferase (ALT/SGPT) 153 U/L (16-63) Alkaline Phosphatase 41 U/L (46-116) Total Protein 4.9 g/dL (6.4-8.2) Albumin 2.5 g/dL (3.4-5.0) Albumin/Globulin Ratio 1.0 (1.0-1.7) Laboratory Tests Test 02/23/19 14:57 02/23/19 15:00 02/23/19 18:50 02/23/19 18:52 Glucose (Fingerstick) 69 mg/dL (70-99) 91 mg/dL (70-99) Prothrombin Time 14.4 SEC (11.7-14.0) Prothromb Time International Ratio 1.2 (0.8-1.1) Activated Partial Thromboplast Time 39 SEC (24-38) Sodium Level 142 mmol/L (136-145) Potassium Level 4.3 mmol/L (3.5-5.1) Chloride Level 108 mmol/L (98-107) Carbon Dioxide Level 25 mmol/L (21-32) Anion Gap 9 (6-14) Blood Urea Nitrogen 12 mg/dL (8-26) Creatinine 0.8 mg/dL (0.7-1.3) Estimated GFR (Cockcroft-Gault) 98.6 Glucose Level 94 mg/dL (70-99) 98 mg/dL (70-99) Calcium Level 7.5 mg/dL (8.5-10.1) Ionized Calcium 1.04 mmol/L (1.13-1.32) Phosphorus Level 3.0 mg/dL (2.6-4.7) Magnesium Level 2.9 mg/dL (1.8-2.4) Test 02/23/19 20:55 02/23/19 20:59 02/24/19 08:00 02/24/19 08:17 White Blood Count 9.2 x10^3/uL (4.0-11.0) 9.3 x10^3/uL (4.0-11.0) Red Blood Count 3.90 x10^6/uL (4.30-5.70) 3.53 x10^6/uL (4.30-5.70) Hemoglobin 11.7 g/dL (13.0-17.5) 10.9 g/dL (13.0-17.5) Hematocrit 36.0 % (39.0-53.0) 32.7 % (39.0-53.0) Mean Corpuscular Volume 92 fL (79-100) 93 fL (79-100) Mean Corpuscular Hemoglobin 30 pg (25-35) 31 pg (25-35) Mean Corpuscular Hemoglobin Concent 33 g/dL (31-37) 33 g/dL (31-37) Red Cell Distribution Width 14.3 % (11.5-14.5) 14.5 % (11.5-14.5) Platelet Count 168 x10^3/uL (140-400) 128 x10^3/uL (140-400) Neutrophils (%) (Auto) 74 % (31-73) Lymphocytes (%) (Auto) 17 % (24-48) Monocytes (%) (Auto) 8 % (0-9) Eosinophils (%) (Auto) 1 % (0-3) Basophils (%) (Auto) 0 % (0-3) Neutrophils # (Auto) 6.8 x10^3uL (1.8-7.7) Lymphocytes # (Auto) 1.6 x10^3/uL (1.0-4.8) Monocytes # (Auto) 0.7 x10^3/uL (0.0-1.1) Eosinophils # (Auto) 0.1 x10^3/uL (0.0-0.7) Basophils # (Auto) 0.0 x10^3/uL (0.0-0.2) Prothrombin Time 14.0 SEC (11.7-14.0) 14.1 SEC (11.7-14.0) Prothromb Time International Ratio 1.1 (0.8-1.1) 1.1 (0.8-1.1) Activated Partial Thromboplast Time 36 SEC (24-38) 41 SEC (24-38) Sodium Level 141 mmol/L (136-145) 144 mmol/L (136-145) Potassium Level 4.7 mmol/L (3.5-5.1) 4.1 mmol/L (3.5-5.1) Chloride Level 108 mmol/L (98-107) 111 mmol/L (98-107) Carbon Dioxide Level 23 mmol/L (21-32) 20 mmol/L (21-32) Anion Gap 10 (6-14) 13 (6-14) Blood Urea Nitrogen 11 mg/dL (8-26) 12 mg/dL (8-26) Creatinine 0.8 mg/dL (0.7-1.3) 0.8 mg/dL (0.7-1.3) Estimated GFR (Cockcroft-Gault) 98.6 98.6 Glucose Level 110 mg/dL (70-99) 83 mg/dL (70-99) Calcium Level 7.2 mg/dL (8.5-10.1) 7.9 mg/dL (8.5-10.1) Ionized Calcium 0.99 mmol/L (1.13-1.32) Magnesium Level 2.8 mg/dL (1.8-2.4) 2.7 mg/dL (1.8-2.4) Glucose (Fingerstick) 105 mg/dL (70-99) O2 Saturation 99 % (92-99) Arterial Blood pH 7.45 (7.35-7.45) Arterial Blood pH (Temp corrected) 7.48 Arterial Blood pCO2 at Patient Temp 26 mmHg (35-46) Arterial Blood pCO2 (Temp correct) 24 mmHg Arterial Blood pO2 at Patient Temp 199 mmHg (65-108) Arterial Blood pO2 (Temp corrected) 189 mmHg Arterial Blood HCO3 17 mmol/L (21-28) Arterial Blood Base Excess -6 mmol/L (-3-3) FiO2 40 BUN/Creatinine Ratio 15 (6-20) Phosphorus Level 2.9 mg/dL (2.6-4.7) Total Bilirubin 0.2 mg/dL (0.2-1.0) Aspartate Amino Transf (AST/SGOT) 84 U/L (15-37) Alanine Aminotransferase (ALT/SGPT) 153 U/L (16-63) Alkaline Phosphatase 41 U/L (46-116) Total Protein 4.9 g/dL (6.4-8.2) Albumin 2.5 g/dL (3.4-5.0) Albumin/Globulin Ratio 1.0 (1.0-1.7) Medications Active Scripts Medications Dose Route/Sig Max Daily Dose Days Date Category Quinapril Hcl 20 Mg Tablet 1 Tab PO DAILY 02/23/19 Reported Pravastatin Sodium 80 Mg Tablet 1 Tab PO DAILY 02/23/19 Reported Impression . IMPRESSION: 1. Acute respiratory failure secondary to ventricular fibrillation cardiac arrest. 2. Ventricular fibrillation cardiac arrest status post shock and cardiopulmonary resuscitation. 3. No definite evidence of central pulmonary emboli. 4. Abnormal CT chest with upper lobe infiltrates, could be related to aspiration and some dependent atelectasis. 5. No significant tobacco history reported. 6. Hypokalemia, which has been corrected. 7. Moderate protein-calorie malnutrition. Plan . RECOMMENDATIONS: 1. Continue with present assist control mode. 2. Follow Cardiology recommendations. 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 empiric antibiotics to cover for any aspiration. 4. Monitor blood pressure closely. At present, he is not on any pressors. 5. PRN bronchodilators. 6. Monitor electrolytes closely. 7. Heparin for deep venous thrombosis prophylaxis. 8. Stress ulcer prophylaxis. 9. Discussed with RN and RT and we will follow along with you. D/W KATHRYN SHANKS MD February 24, 2019 11:19
[2019-02-24] MEDS: cefTRIAXone IV Push 1 GM VIAL. IVP SCH (11:30)
[2019-02-24 12:17] LABS: HEMOGLOBIN A1C 5.5 % (4.8-5.6)
--- NOTE | 2019-02-24 14:09 | PDOC ---
CARDIOLOGY PROGRESS NOTE SUBJECTIVE: No acute events overnight. No arrhythmias. Sedated OBJECTIVE: Vital SIgns: Vital Signs Date Time Temp Pulse Resp B/P (MAP) Pulse Ox O2 Delivery O2 Flow Rate FiO2 02/24/19 13:00 64 17 103/55 (71) 100 Ventilator 02/24/19 12:00 97.2 97.2 I & O Intake and Output 02/24/19 07:00 Intake Total 4661.94 ml Output Total 975 ml Balance 3686.94 ml Intake IV Total 4661.94 ml Output Urine Total 975 ml Objective: Normal heart tones. No edema. Mild rhonchi CURRENT MEDICATIONS: Current Medications Medications (Trade) Dose Ordered Sig/John Start Time Stop Time Status Last Admin Dose Admin Acetaminophen (Tylenol) 650 mg Q4H 02/22/19 19:30 02/24/19 11:30 650 MG Amiodarone HCl 150 mg/Dextrose 103 ml @ 618 mls/hr 1X ONCE 02/22/19 16:45 02/22/19 16:54 DC Amiodarone HCl 900 mg/Dextrose 518 ml @ 33 mls/hr CONT PRN 02/22/19 16:45 02/23/19 12:28 DC 02/23/19 12:28 17.26 MLS/HR Artificial Tears (Artificial Tears) 1 drop PRN Q15MIN PRN 02/22/19 19:30 Atropine Sulfate (ATROPINE 1mg SYRINGE) 1 mg STK-MED ONCE 02/23/19 09:47 02/23/19 09:48 DC Buspirone HCl (Buspar) 30 mg Q8H 02/22/19 19:30 02/24/19 11:31 DC 02/24/19 11:30 30 MG Calcium Carbonate/ Glycine (Tums) 1,000 mg 1X ONCE 02/23/19 11:45 02/23/19 11:47 DC 02/23/19 12:06 1,000 MG Ceftriaxone Sodium (Rocephin) 1 gm Q24H 02/23/19 11:30 02/24/19 11:30 1 GM Dopamine HCl/ Dextrose 250 ml @ 5.936 mls/ hr CONT PRN 02/24/19 09:15 Etomidate (Amidate) 20 mg 1X ONCE 02/22/19 20:30 02/22/19 20:34 DC 02/22/19 16:31 20 MG Famotidine (Pepcid) 20 mg QHS 02/23/19 21:00 02/23/19 19:45 20 MG Fentanyl Citrate (Fentanyl 2ml Vial) 100 mcg 1X ONCE 02/22/19 21:30 02/22/19 21:31 DC 02/22/19 17:39 100 MCG Heparin Sodium (Porcine) (Heparin Sodium) 5,000 unit BID 02/22/19 21:00 02/24/19 11:06 5,000 UNIT Info (CONTRAST GIVEN -- Rx MONITORING) 1 each PRN DAILY PRN 02/23/19 08:45 02/25/19 08:44 Insulin Human Regular 150 unit/ Sodium Chloride 151.5 ml @ 0 mls/hr CONT PRN 02/22/19 22:15 Iohexol (Omnipaque 350 Mg/ml) 100 ml STK-MED ONCE 02/23/19 14:53 02/23/19 14:54 DC Labetalol HCl (Normodyne Iv Push) 20 mg 1X ONCE 02/22/19 17:30 02/22/19 17:31 DC Magnesium Sulfate 50 ml @ 25 mls/hr 1X ONCE 02/23/19 09:45 02/23/19 11:44 DC 02/23/19 10:40 25 MLS/HR Magnesium Sulfate/ Dextrose 100 ml @ 100 mls/hr 1X ONCE 02/23/19 16:45 02/23/19 17:44 DC 02/23/19 16:43 100 MLS/HR Midazolam HCl (Versed) 4 mg 1X ONCE 02/22/19 21:30 02/22/19 21:31 DC 02/22/19 17:59 4 MG Morphine Sulfate (Morphine Sulfate) 4 mg 1X ONCE 02/22/19 16:30 02/22/19 16:31 DC 02/22/19 16:27 4 MG Norepinephrine Bitartrate 250 ml @ 1.875 mls/ hr CONT PRN 02/24/19 09:30 02/24/19 09:47 5.625 MLS/HR Ondansetron HCl (Zofran) 4 mg PRN Q8HRS PRN 02/22/19 17:15 02/23/19 17:14 DC Potassium Chloride 40 meq/ Dextrose 1,020 ml @ 75 mls/hr 1X ONCE 02/22/19 17:15 02/23/19 06:50 DC 02/22/19 17:50 75 MLS/HR Potassium Chloride/Dextrose/ Sod Cl 1,000 ml @ 100 mls/hr Q10H 02/22/19 19:45 02/23/19 05:34 DC Potassium Chloride/Water 100 ml @ 100 mls/hr Q1H 02/23/19 10:00 02/23/19 10:59 DC 02/23/19 10:41 100 MLS/HR Potassium Chloride (KCl Oral Soln) 80 meq 1X ONCE 02/22/19 17:30 02/22/19 17:31 DC 02/22/19 17:29 80 MEQ Propofol 100 ml @ 0 mls/hr CONT PRN 02/22/19 19:30 02/22/19 21:11 21.6 MLS/HR Propofol (Diprivan) 200 mg 1X ONCE 02/22/19 16:45 02/22/19 16:46 DC Rocuronium Hamilton (Zemuron) 50 mg 1X ONCE 02/22/19 20:30 02/22/19 20:34 DC 02/22/19 16:32 50 MG Sodium Bicarbonate (Sodium Bicarb Adult 8.4% Syr) 50 meq 1X ONCE 02/22/19 20:45 02/22/19 20:46 DC 02/22/19 18:11 50 MEQ Sodium Chloride 500 ml @ 500 mls/hr 1X ONCE 02/23/19 23:45 02/24/19 00:44 DC 02/23/19 23:53 500 MLS/HR Sodium Phosphate 10 mmol/Dextrose 253.3333 ml @ 64.167 m... 1X ONCE 02/23/19 04:00 02/23/19 07:56 DC 02/23/19 06:24 64.167 MLS/HR Vecuronium [place] (Norcuron Bolus) 8 mg PRN Q1HR PRN 02/22/19 19:30 02/24/19 05:55 8 MG DIAGNOSTIC TESTING: Labs stable. EKG unchanged. Sinus thalia ASSESSMENT: 1. VF arrest - etiology unclear 2. Elevated troponin - no NSTEMI 3. HTN - stable PLAN: Per family request transfer to [facility]. Discussed with cardiology at [facility]. Thanks RENU LARES MD February 24, 2019 14:09
--- NOTE | 2019-02-24 14:28 | NUR ---
Discharge Note Patient transfered to [facility] via [facility]. Patient family members aware of the discharge risks. Patient was intubated and sedated with transfer. Fentanyl syringe completed when [facility] arrived. [facility] personnel transferred patient with 75 mL of Versed.
--- NOTE | 2019-02-24 14:37 | PDOC ---
PROGRESS NOTES Assessment Problems Medical Problems: (1) Cardiac arrest Status: Acute (2) Dehydration Status: Acute (3) Ventricular fibrillation Status: Acute Ventricular fibrillation cardiac arrest, completed hypothermia protocol, favorable neurological response Plan Note plans to transfer to [facility] per family preference I discussed with patient's daughter Subjective None Objective Vital Signs Date Time Temp Pulse Resp B/P (MAP) Pulse Ox O2 Delivery O2 Flow Rate FiO2 02/24/19 13:00 64 17 103/55 (71) 100 Ventilator 02/24/19 12:00 97.2 97.2 Intake and Output 02/24/19 07:00 Intake Total 4661.94 ml Output Total 975 ml Balance 3686.94 ml Intake IV Total 4661.94 ml Output Urine Total 975 ml PHYSICAL EXAM Alert. Averts gaze to light Does not follow commands PERRL. EOMI. CN: no focal findings. Muscle tone: normal. Muscle strength: moves all extremities to pain DTR: 2+ Plantar reflex: flexor Gait: not examined in bed. Sensory exam: no abnormal findings. No cerebellar signs elicited. Review of Relevant I have reviewed the following items taylor (where applicable) has been applied. Labs Laboratory Tests Test 02/22/19 16:10 02/22/19 16:31 02/22/19 17:41 02/22/19 20:40 White Blood Count 12.8 x10^3/uL (4.0-11.0) Red Blood Count 3.99 x10^6/uL (4.30-5.70) Hemoglobin 12.0 g/dL (13.0-17.5) Hematocrit 36.7 % (39.0-53.0) Mean Corpuscular Volume 92 fL (79-100) Mean Corpuscular Hemoglobin 30 pg (25-35) Mean Corpuscular Hemoglobin Concent 33 g/dL (31-37) Red Cell Distribution Width 13.9 % (11.5-14.5) Platelet Count 252 x10^3/uL (140-400) Neutrophils (%) (Auto) 48 % (31-73) Lymphocytes (%) (Auto) 45 % (24-48) Monocytes (%) (Auto) 5 % (0-9) Eosinophils (%) (Auto) 1 % (0-3) Basophils (%) (Auto) 1 % (0-3) Neutrophils # (Auto) 6.1 x10^3uL (1.8-7.7) Lymphocytes # (Auto) 5.8 x10^3/uL (1.0-4.8) Monocytes # (Auto) 0.6 x10^3/uL (0.0-1.1) Eosinophils # (Auto) 0.1 x10^3/uL (0.0-0.7) Basophils # (Auto) 0.1 x10^3/uL (0.0-0.2) Prothrombin Time 12.5 SEC (11.7-14.0) Prothromb Time International Ratio 1.0 (0.8-1.1) Activated Partial Thromboplast Time 24 SEC (24-38) Sodium Level 141 mmol/L (136-145) 139 mmol/L (136-145) Potassium Level 2.7 mmol/L (3.5-5.1) 5.6 mmol/L (3.5-5.1) Chloride Level 101 mmol/L (98-107) 106 mmol/L (98-107) Carbon Dioxide Level 16 mmol/L (21-32) 24 mmol/L (21-32) Anion Gap 24 (6-14) 25 mmol/L (6-14) 9 (6-14) Blood Urea Nitrogen 17 mg/dL (8-26) 14 mg/dL (8-26) Creatinine 1.5 mg/dL (0.7-1.3) 1.1 mg/dL (0.7-1.3) Estimated GFR (Cockcroft-Gault) 47.7 68.3 BUN/Creatinine Ratio 11 (6-20) Glucose Level 224 mg/dL (70-99) 217 mg/dL (70-99) 224 mg/dL (70-99) Calcium Level 9.0 mg/dL (8.5-10.1) 7.2 mg/dL (8.5-10.1) Magnesium Level 2.0 mg/dL (1.8-2.4) Total Bilirubin 0.4 mg/dL (0.2-1.0) Aspartate Amino Transf (AST/SGOT) 190 U/L (15-37) Alanine Aminotransferase (ALT/SGPT) 221 U/L (16-63) Alkaline Phosphatase 55 U/L (46-116) Creatine Kinase 178 U/L (39-308) Creatine Kinase MB (Mass) 2.1 ng/mL (0.0-3.6) Creatine Kinase MB Relative Index 1.2 % (0-4) Troponin I Quantitative < 0.017 ng/mL (0.000-0.055) CT-Raf-F-Type Natriuretic Peptide 175 pg/mL (0-124) Total Protein 7.0 g/dL (6.4-8.2) Albumin 4.0 g/dL (3.4-5.0) Albumin/Globulin Ratio 1.3 (1.0-1.7) Lipase 131 U/L (73-393) Bedside Hemoglobin 12.2 g/dL (14-18) Bedside Hematocrit 36 % (37-52) Bedside Sodium 139 mmol/L (135-145) Bedside Potassium 2.7 mmol/L (3.5-5.0) Bedside Chloride 104 mmol/L (98-110) Bedside Total CO2 14 mmol/L (23-32) Bedside Blood Urea Nitrogen 15 mg/dL (8-26) Bedside Creatinine 1.2 mg/dL (0.5-1.4) Bedside Ionized Calcium (Hussain) 1.07 mmol/L (1.13-1.32) O2 Saturation 98 % (92-99) Arterial Blood pH 7.26 (7.35-7.45) Arterial Blood pCO2 at Patient Temp 37 mmHg (35-46) Arterial Blood pO2 at Patient Temp 161 mmHg (65-108) Arterial Blood HCO3 16 mmol/L (21-28) Arterial Blood Base Excess -10 mmol/L (-3-3) FiO2 80% Test 02/22/19 22:59 02/23/19 01:10 02/23/19 04:50 02/23/19 05:25 Glucose (Fingerstick) 169 mg/dL (70-99) White Blood Count 11.7 x10^3/uL (4.0-11.0) Red Blood Count 3.36 x10^6/uL (4.30-5.70) Hemoglobin 10.1 g/dL (13.0-17.5) Hematocrit 30.7 % (39.0-53.0) Mean Corpuscular Volume 92 fL (79-100) Mean Corpuscular Hemoglobin 30 pg (25-35) Mean Corpuscular Hemoglobin Concent 33 g/dL (31-37) Red Cell Distribution Width 14.0 % (11.5-14.5) Platelet Count 169 x10^3/uL (140-400) Neutrophils (%) (Auto) 70 % (31-73) Lymphocytes (%) (Auto) 21 % (24-48) Monocytes (%) (Auto) 8 % (0-9) Eosinophils (%) (Auto) 0 % (0-3) Basophils (%) (Auto) 0 % (0-3) Neutrophils # (Auto) 8.2 x10^3uL (1.8-7.7) Lymphocytes # (Auto) 2.5 x10^3/uL (1.0-4.8) Monocytes # (Auto) 1.0 x10^3/uL (0.0-1.1) Eosinophils # (Auto) 0.0 x10^3/uL (0.0-0.7) Basophils # (Auto) 0.1 x10^3/uL (0.0-0.2) Prothrombin Time 13.4 SEC (11.7-14.0) Prothromb Time International Ratio 1.1 (0.8-1.1) Activated Partial Thromboplast Time 29 SEC (24-38) Sodium Level 144 mmol/L (136-145) Potassium Level 4.1 mmol/L (3.5-5.1) Chloride Level 108 mmol/L (98-107) Carbon Dioxide Level 24 mmol/L (21-32) Anion Gap 12 (6-14) Blood Urea Nitrogen 13 mg/dL (8-26) Creatinine 0.9 mg/dL (0.7-1.3) Estimated GFR (Cockcroft-Gault) 86.1 Glucose Level 115 mg/dL (70-99) Calcium Level 7.3 mg/dL (8.5-10.1) Ionized Calcium 1.01 mmol/L (1.13-1.32) Phosphorus Level 1.9 mg/dL (2.6-4.7) Magnesium Level 2.2 mg/dL (1.8-2.4) Troponin I Quantitative 0.374 ng/mL (0.000-0.055) Urine Collection Type Unknown Urine Color Yellow Urine Clarity Clear Urine pH 6.0 Urine Specific [place] >=1.030 Urine Protein 30 mg/dL (NEG-TRACE) Urine Glucose (UA) Negative mg/dL (NEG) Urine Ketones (Stick) Negative mg/dL (NEG) Urine Blood Moderate (NEG) Urine Nitrite Negative (NEG) Urine Bilirubin Negative (NEG) Urine Urobilinogen Dipstick 0.2 mg/dL (0.2 mg/dL) Urine Leukocyte Esterase Negative (NEG) Urine RBC 20-40 /HPF (0-2) Urine WBC Occ /HPF (0-4) Urine Squamous Epithelial Cells Few /LPF Urine Bacteria Few /HPF (0-FEW) Urine Opiates Screen Pos (NEG) Urine Methadone Screen Neg (NEG) Urine Barbiturates Neg (NEG) Urine Phencyclidine Screen Neg (NEG) Urine Amphetamine/Methamphetamine Neg (NEG) Urine Benzodiazepines Screen Pos (NEG) Urine Cocaine Screen Neg (NEG) Urine Cannabinoids Screen Neg (NEG) Urine Ethyl Alcohol Neg (NEG) Nasal Screen MRSA (PCR) Negative (Negative) Test 02/23/19 08:28 02/23/19 08:30 02/23/19 09:15 02/23/19 09:22 Glucose (Fingerstick) 198 mg/dL (70-99) 120 mg/dL (70-99) White Blood Count 8.1 x10^3/uL (4.0-11.0) Red Blood Count 3.07 x10^6/uL (4.30-5.70) Hemoglobin 9.4 g/dL (13.0-17.5) Hematocrit 28.1 % (39.0-53.0) Mean Corpuscular Volume 92 fL (79-100) Mean Corpuscular Hemoglobin 31 pg (25-35) Mean Corpuscular Hemoglobin Concent 34 g/dL (31-37) Red Cell Distribution Width 14.0 % (11.5-14.5) Platelet Count 142 x10^3/uL (140-400) Neutrophils (%) (Auto) 57 % (31-73) Lymphocytes (%) (Auto) 31 % (24-48) Monocytes (%) (Auto) 9 % (0-9) Eosinophils (%) (Auto) 2 % (0-3) Basophils (%) (Auto) 1 % (0-3) Neutrophils # (Auto) 4.6 x10^3uL (1.8-7.7) Lymphocytes # (Auto) 2.5 x10^3/uL (1.0-4.8) Monocytes # (Auto) 0.8 x10^3/uL (0.0-1.1) Eosinophils # (Auto) 0.1 x10^3/uL (0.0-0.7) Basophils # (Auto) 0.0 x10^3/uL (0.0-0.2) Prothrombin Time 14.0 SEC (11.7-14.0) Prothromb Time International Ratio 1.1 (0.8-1.1) Activated Partial Thromboplast Time 33 SEC (24-38) Sodium Level 141 mmol/L (136-145) Potassium Level 3.1 mmol/L (3.5-5.1) Chloride Level 107 mmol/L (98-107) Carbon Dioxide Level 21 mmol/L (21-32) Anion Gap 13 (6-14) Blood Urea Nitrogen 12 mg/dL (8-26) Creatinine 0.7 mg/dL (0.7-1.3) Estimated GFR (Cockcroft-Gault) 115.0 BUN/Creatinine Ratio 17 (6-20) Glucose Level 200 mg/dL (70-99) Hemoglobin A1c 5.5 % (4.8-5.6) Calcium Level 6.3 mg/dL (8.5-10.1) Phosphorus Level 5.7 mg/dL (2.6-4.7) Magnesium Level 2.2 mg/dL (1.8-2.4) Total Bilirubin 0.3 mg/dL (0.2-1.0) Aspartate Amino Transf (AST/SGOT) 95 U/L (15-37) Alanine Aminotransferase (ALT/SGPT) 148 U/L (16-63) Alkaline Phosphatase 32 U/L (46-116) Troponin I Quantitative 0.307 ng/mL (0.000-0.055) Total Protein 4.2 g/dL (6.4-8.2) Albumin 2.5 g/dL (3.4-5.0) Albumin/Globulin Ratio 1.5 (1.0-1.7) O2 Saturation 99 % (92-99) Arterial Blood pH 7.50 (7.35-7.45) Arterial Blood pH (Temp corrected) 7.56 Arterial Blood pCO2 at Patient Temp 24 mmHg (35-46) Arterial Blood pCO2 (Temp correct) 20 mmHg Arterial Blood pO2 at Patient Temp 228 mmHg (65-108) Arterial Blood pO2 (Temp corrected) 207 mmHg Arterial Blood HCO3 18 mmol/L (21-28) Arterial Blood Base Excess -4 mmol/L (-3-3) FiO2 40 Test 02/23/19 14:57 02/23/19 15:00 02/23/19 18:50 02/23/19 18:52 Glucose (Fingerstick) 69 mg/dL (70-99) 91 mg/dL (70-99) Prothrombin Time 14.4 SEC (11.7-14.0) Prothromb Time International Ratio 1.2 (0.8-1.1) Activated Partial Thromboplast Time 39 SEC (24-38) Sodium Level 142 mmol/L (136-145) Potassium Level 4.3 mmol/L (3.5-5.1) Chloride Level 108 mmol/L (98-107) Carbon Dioxide Level 25 mmol/L (21-32) Anion Gap 9 (6-14) Blood Urea Nitrogen 12 mg/dL (8-26) Creatinine 0.8 mg/dL (0.7-1.3) Estimated GFR (Cockcroft-Gault) 98.6 Glucose Level 94 mg/dL (70-99) 98 mg/dL (70-99) Calcium Level 7.5 mg/dL (8.5-10.1) Ionized Calcium 1.04 mmol/L (1.13-1.32) Phosphorus Level 3.0 mg/dL (2.6-4.7) Magnesium Level 2.9 mg/dL (1.8-2.4) Test 02/23/19 20:55 02/23/19 20:59 02/24/19 08:00 02/24/19 08:17 White Blood Count 9.2 x10^3/uL (4.0-11.0) 9.3 x10^3/uL (4.0-11.0) Red Blood Count 3.90 x10^6/uL (4.30-5.70) 3.53 x10^6/uL (4.30-5.70) Hemoglobin 11.7 g/dL (13.0-17.5) 10.9 g/dL (13.0-17.5) Hematocrit 36.0 % (39.0-53.0) 32.7 % (39.0-53.0) Mean Corpuscular Volume 92 fL (79-100) 93 fL (79-100) Mean Corpuscular Hemoglobin 30 pg (25-35) 31 pg (25-35) Mean Corpuscular Hemoglobin Concent 33 g/dL (31-37) 33 g/dL (31-37) Red Cell Distribution Width 14.3 % (11.5-14.5) 14.5 % (11.5-14.5) Platelet Count 168 x10^3/uL (140-400) 128 x10^3/uL (140-400) Neutrophils (%) (Auto) 74 % (31-73) Lymphocytes (%) (Auto) 17 % (24-48) Monocytes (%) (Auto) 8 % (0-9) Eosinophils (%) (Auto) 1 % (0-3) Basophils (%) (Auto) 0 % (0-3) Neutrophils # (Auto) 6.8 x10^3uL (1.8-7.7) Lymphocytes # (Auto) 1.6 x10^3/uL (1.0-4.8) Monocytes # (Auto) 0.7 x10^3/uL (0.0-1.1) Eosinophils # (Auto) 0.1 x10^3/uL (0.0-0.7) Basophils # (Auto) 0.0 x10^3/uL (0.0-0.2) Prothrombin Time 14.0 SEC (11.7-14.0) 14.1 SEC (11.7-14.0) Prothromb Time International Ratio 1.1 (0.8-1.1) 1.1 (0.8-1.1) Activated Partial Thromboplast Time 36 SEC (24-38) 41 SEC (24-38) Sodium Level 141 mmol/L (136-145) 144 mmol/L (136-145) Potassium Level 4.7 mmol/L (3.5-5.1) 4.1 mmol/L (3.5-5.1) Chloride Level 108 mmol/L (98-107) 111 mmol/L (98-107) Carbon Dioxide Level 23 mmol/L (21-32) 20 mmol/L (21-32) Anion Gap 10 (6-14) 13 (6-14) Blood Urea Nitrogen 11 mg/dL (8-26) 12 mg/dL (8-26) Creatinine 0.8 mg/dL (0.7-1.3) 0.8 mg/dL (0.7-1.3) Estimated GFR (Cockcroft-Gault) 98.6 98.6 Glucose Level 110 mg/dL (70-99) 83 mg/dL (70-99) Calcium Level 7.2 mg/dL (8.5-10.1) 7.9 mg/dL (8.5-10.1) Ionized Calcium 0.99 mmol/L (1.13-1.32) Magnesium Level 2.8 mg/dL (1.8-2.4) 2.7 mg/dL (1.8-2.4) Glucose (Fingerstick) 105 mg/dL (70-99) O2 Saturation 99 % (92-99) Arterial Blood pH 7.45 (7.35-7.45) Arterial Blood pH (Temp corrected) 7.48 Arterial Blood pCO2 at Patient Temp 26 mmHg (35-46) Arterial Blood pCO2 (Temp correct) 24 mmHg Arterial Blood pO2 at Patient Temp 199 mmHg (65-108) Arterial Blood pO2 (Temp corrected) 189 mmHg Arterial Blood HCO3 17 mmol/L (21-28) Arterial Blood Base Excess -6 mmol/L (-3-3) FiO2 40 BUN/Creatinine Ratio 15 (6-20) Phosphorus Level 2.9 mg/dL (2.6-4.7) Total Bilirubin 0.2 mg/dL (0.2-1.0) Aspartate Amino Transf (AST/SGOT) 84 U/L (15-37) Alanine Aminotransferase (ALT/SGPT) 153 U/L (16-63) Alkaline Phosphatase 41 U/L (46-116) Total Protein 4.9 g/dL (6.4-8.2) Albumin 2.5 g/dL (3.4-5.0) Albumin/Globulin Ratio 1.0 (1.0-1.7) Test 02/24/19 08:34 Glucose (Fingerstick) 93 mg/dL (70-99) Laboratory Tests Test 02/23/19 14:57 02/23/19 15:00 02/23/19 18:50 02/23/19 18:52 Glucose (Fingerstick) 69 mg/dL (70-99) 91 mg/dL (70-99) Prothrombin Time 14.4 SEC (11.7-14.0) Prothromb Time International Ratio 1.2 (0.8-1.1) Activated Partial Thromboplast Time 39 SEC (24-38) Sodium Level 142 mmol/L (136-145) Potassium Level 4.3 mmol/L (3.5-5.1) Chloride Level 108 mmol/L (98-107) Carbon Dioxide Level 25 mmol/L (21-32) Anion Gap 9 (6-14) Blood Urea Nitrogen 12 mg/dL (8-26) Creatinine 0.8 mg/dL (0.7-1.3) Estimated GFR (Cockcroft-Gault) 98.6 Glucose Level 94 mg/dL (70-99) 98 mg/dL (70-99) Calcium Level 7.5 mg/dL (8.5-10.1) Ionized Calcium 1.04 mmol/L (1.13-1.32) Phosphorus Level 3.0 mg/dL (2.6-4.7) Magnesium Level 2.9 mg/dL (1.8-2.4) Test 02/23/19 20:55 02/23/19 20:59 02/24/19 08:00 02/24/19 08:17 White Blood Count 9.2 x10^3/uL (4.0-11.0) 9.3 x10^3/uL (4.0-11.0) Red Blood Count 3.90 x10^6/uL (4.30-5.70) 3.53 x10^6/uL (4.30-5.70) Hemoglobin 11.7 g/dL (13.0-17.5) 10.9 g/dL (13.0-17.5) Hematocrit 36.0 % (39.0-53.0) 32.7 % (39.0-53.0) Mean Corpuscular Volume 92 fL (79-100) 93 fL (79-100) Mean Corpuscular Hemoglobin 30 pg (25-35) 31 pg (25-35) Mean Corpuscular Hemoglobin Concent 33 g/dL (31-37) 33 g/dL (31-37) Red Cell Distribution Width 14.3 % (11.5-14.5) 14.5 % (11.5-14.5) Platelet Count 168 x10^3/uL (140-400) 128 x10^3/uL (140-400) Neutrophils (%) (Auto) 74 % (31-73) Lymphocytes (%) (Auto) 17 % (24-48) Monocytes (%) (Auto) 8 % (0-9) Eosinophils (%) (Auto) 1 % (0-3) Basophils (%) (Auto) 0 % (0-3) Neutrophils # (Auto) 6.8 x10^3uL (1.8-7.7) Lymphocytes # (Auto) 1.6 x10^3/uL (1.0-4.8) Monocytes # (Auto) 0.7 x10^3/uL (0.0-1.1) Eosinophils # (Auto) 0.1 x10^3/uL (0.0-0.7) Basophils # (Auto) 0.0 x10^3/uL (0.0-0.2) Prothrombin Time 14.0 SEC (11.7-14.0) 14.1 SEC (11.7-14.0) Prothromb Time International Ratio 1.1 (0.8-1.1) 1.1 (0.8-1.1) Activated Partial Thromboplast Time 36 SEC (24-38) 41 SEC (24-38) Sodium Level 141 mmol/L (136-145) 144 mmol/L (136-145) Potassium Level 4.7 mmol/L (3.5-5.1) 4.1 mmol/L (3.5-5.1) Chloride Level 108 mmol/L (98-107) 111 mmol/L (98-107) Carbon Dioxide Level 23 mmol/L (21-32) 20 mmol/L (21-32) Anion Gap 10 (6-14) 13 (6-14) Blood Urea Nitrogen 11 mg/dL (8-26) 12 mg/dL (8-26) Creatinine 0.8 mg/dL (0.7-1.3) 0.8 mg/dL (0.7-1.3) Estimated GFR (Cockcroft-Gault) 98.6 98.6 Glucose Level 110 mg/dL (70-99) 83 mg/dL (70-99) Calcium Level 7.2 mg/dL (8.5-10.1) 7.9 mg/dL (8.5-10.1) Ionized Calcium 0.99 mmol/L (1.13-1.32) Magnesium Level 2.8 mg/dL (1.8-2.4) 2.7 mg/dL (1.8-2.4) Glucose (Fingerstick) 105 mg/dL (70-99) O2 Saturation 99 % (92-99) Arterial Blood pH 7.45 (7.35-7.45) Arterial Blood pH (Temp corrected) 7.48 Arterial Blood pCO2 at Patient Temp 26 mmHg (35-46) Arterial Blood pCO2 (Temp correct) 24 mmHg Arterial Blood pO2 at Patient Temp 199 mmHg (65-108) Arterial Blood pO2 (Temp corrected) 189 mmHg Arterial Blood HCO3 17 mmol/L (21-28) Arterial Blood Base Excess -6 mmol/L (-3-3) FiO2 40 BUN/Creatinine Ratio 15 (6-20) Phosphorus Level 2.9 mg/dL (2.6-4.7) Total Bilirubin 0.2 mg/dL (0.2-1.0) Aspartate Amino Transf (AST/SGOT) 84 U/L (15-37) Alanine Aminotransferase (ALT/SGPT) 153 U/L (16-63) Alkaline Phosphatase 41 U/L (46-116) Total Protein 4.9 g/dL (6.4-8.2) Albumin 2.5 g/dL (3.4-5.0) Albumin/Globulin Ratio 1.0 (1.0-1.7) Test 02/24/19 08:34 Glucose (Fingerstick) 93 mg/dL (70-99) Medications Current Medications Fentanyl Citrate (Fentanyl 2ml Vial) 100 mcg STK-MED ONCE .ROUTE ; Start 02/22/19 at 16:15; Stop 02/22/19 at 16:16; Status DC Sodium Chloride 1,000 ml @ 1,000 mls/hr 1X STAT IV Last administered on 02/22/19at 16:22; Start 02/22/19 at 16:21; Stop 02/22/19 at 17:20; Status DC Sodium Chloride 1,000 ml @ 1,000 mls/hr 1X ONCE IV Last administered on 02/22/19at 16:14; Start 02/22/19 at 16:30; Stop 02/22/19 at 17:29; Status DC Sodium Chloride 1,000 ml @ 1,000 mls/hr 1X ONCE IV Last administered on 02/22/19at 16:14; Start 02/22/19 at 16:30; Stop 02/22/19 at 17:29; Status DC Sodium Chloride 1,000 ml @ 1,000 mls/hr 1X ONCE IV Last administered on 02/22/19at 16:22; Start 02/22/19 at 16:30; Stop 02/22/19 at 17:29; Status DC Morphine Sulfate (Morphine Sulfate) 4 mg 1X ONCE IV Last administered on 02/22/19at 16:27; Start 02/22/19 at 16:30; Stop 02/22/19 at 16:31; Status DC Propofol (Diprivan) 200 mg 1X ONCE IV ; Start 02/22/19 at 16:45; Stop 02/22/19 at 16:46; Status DC Amiodarone HCl 150 mg/Dextrose 103 ml @ 618 mls/hr 1X ONCE IV ; Start 02/22/19 at 16:45; Stop 02/22/19 at 16:54; Status DC Amiodarone HCl 900 mg/Dextrose 518 ml @ 33 mls/hr CONT PRN IV SEE I/O RECORD Last administered on 02/23/19at 12:28; Start 02/22/19 at 16:45; Stop 02/23/19 at 12:28; Status DC Propofol 100 ml @ As Directed STK-MED ONCE IV ; Start 02/22/19 at 16:50; Stop 02/22/19 at 16:51; Status DC Potassium Chloride 40 meq/ Dextrose 1,020 ml @ 75 mls/hr 1X ONCE IV Last administered on 02/22/19at 17:50; Start 02/22/19 at 17:15; Stop 02/23/19 at 06:50; Status DC Etomidate (Amidate) 20 mg STK-MED ONCE IV ; Start 02/22/19 at 17:12; Stop 02/22/19 at 17:13; Status DC Rocuronium [place] (Zemuron) 50 mg STK-MED ONCE .ROUTE ; Start 02/22/19 at 17:12; Stop 02/22/19 at 17:13; Status DC Labetalol HCl (Normodyne Iv Push) 20 mg 1X ONCE IVP ; Start 02/22/19 at 17:30; Stop 02/22/19 at 17:31; Status DC Potassium Chloride (KCl Oral Soln) 80 meq 1X ONCE NG Last administered on 02/22/19at 17:29; Start 02/22/19 at 17:30; Stop 02/22/19 at 17:31; Status DC Ondansetron HCl (Zofran) 4 mg PRN Q8HRS PRN IV NAUSEA/VOMITING; Start 02/22/19 at 17:15; Stop 02/23/19 at 17:14; Status DC Sodium Chloride 1,000 ml @ 75 mls/hr [id number] IV ; Start 02/22/19 at 17:15; Stop 02/23/19 at 06:26; Status DC Fentanyl Citrate (Fentanyl 2ml Vial) 100 mcg STK-MED ONCE .ROUTE ; Start 02/22/19 at 17:37; Stop 02/22/19 at 17:38; Status DC Midazolam HCl (Versed) 5 mg STK-MED ONCE .ROUTE ; Start 02/22/19 at 17:58; Stop 02/22/19 at 17:59; Status DC Sodium Bicarbonate (Sodium Bicarb Adult 8.4% Syr) 50 meq STK-MED ONCE .ROUTE ; Start 02/22/19 at 18:08; Stop 02/22/19 at 18:09; Status DC Vecuronium [place] (Norcuron Bolus) 10 mg STK-MED ONCE IV ; Start 02/22/19 at 19:25; Stop 02/22/19 at 19:26; Status DC Fentanyl Citrate (Fentanyl 2ml Vial) 100 mcg 1X ONCE IV ; Start 02/22/19 at 19:30; Stop 02/22/19 at 19:31; Status DC Midazolam HCl (Versed) 2 mg 1X ONCE IV Last administered on 02/22/19at 21:01; Start 02/22/19 at 19:30; Stop 02/22/19 at 19:32; Status DC Magnesium Sulfate/ Dextrose 100 ml @ 100 mls/hr 1X ONCE IV Last administered on 02/22/19at 21:09; Start 02/22/19 at 19:30; Stop 02/22/19 at 20:34; Status DC Buspirone HCl (Buspar) 30 mg Q8H NG Last administered on 02/24/19 11:30; Start 02/22/19 at 19:30; Stop 02/24/19 at 11:31; Status DC Acetaminophen (Tylenol) 650 mg Q4H NG Last administered on 02/24/19 11:30; Start 02/22/19 at 19:30 Artificial Tears (Artificial Tears) 1 drop Q6HRS OU Last administered on 02/24/19 11:30; Start 02/23/19 at 00:00 Artificial Tears (Artificial Tears) 1 drop PRN Q15MIN PRN OU DRY EYE; Start 02/22/19 at 19:30 Heparin Sodium (Porcine) (Heparin Sodium) 5,000 unit BID SQ Last administered on 02/24/19 11:06; Start 02/22/19 at 21:00 Fentanyl Citrate 30 ml @ 0 mls/hr CONT PRN IV PER PROTOCOL. Last administered on 02/24/19 09:09; Start 02/22/19 at 19:30 Propofol 100 ml @ 0 mls/hr CONT PRN IV PER PROTOCOL. Last administered on 02/22/19 21:11; Start 02/22/19 at 19:30 Midazolam HCl 100 ml @ 0 mls/hr CONT PRN IV PER PROTOCOL. Last administered on 02/24/19 11:07; Start 02/22/19 at 19:30 Vecuronium [place] (Norcuron Bolus) 8 mg PRN Q1HR PRN IV SHIVERING Last administered on 02/24/19 05:55; Start 02/22/19 at 19:30 Potassium Chloride/Water 100 ml @ 100 mls/hr Q1H IV Last administered on 02/22/19 21:08; Start 02/22/19 at 20:00; Stop 02/22/19 at 23:59; Status DC Potassium Chloride/Dextrose/ Sod Cl 1,000 ml @ 100 mls/hr Q10H IV ; Start 02/22/19 at 19:45; Stop 02/23/19 at 05:34; Status DC Fentanyl Citrate (Fentanyl 2ml Vial) 100 mcg 1X ONCE IV Last administered on 02/22/19 16:16; Start 02/22/19 at 20:30; Stop 02/22/19 at 20:34; Status DC Etomidate (Amidate) 20 mg 1X ONCE IV Last administered on 02/22/19 16:31; Start 02/22/19 at 20:30; Stop 02/22/19 at 20:34; Status DC Rocuronium [place] (Zemuron) 50 mg 1X ONCE IV Last administered on 02/22/19 16:32; Start 02/22/19 at 20:30; Stop 02/22/19 at 20:34; Status DC Sodium Bicarbonate (Sodium Bicarb Adult 8.4% Syr) 50 meq 1X ONCE IV Last administered on 02/22/19at 18:11; Start 02/22/19 at 20:45; Stop 02/22/19 at 20:46; Status DC Fentanyl Citrate (Fentanyl 2ml Vial) 100 mcg 1X ONCE IV Last administered on 02/22/19 17:39; Start 02/22/19 at 21:30; Stop 02/22/19 at 21:31; Status DC Midazolam HCl (Versed) 4 mg 1X ONCE IV Last administered on 02/22/19at 17:59; Start 02/22/19 at 21:30; Stop 02/22/19 at 21:31; Status DC Insulin Human Regular 150 unit/ Sodium Chloride 151.5 ml @ 0 mls/hr CONT PRN I V SEE I/O RECORD; Start 02/22/19 at 22:15 Sodium Chloride 1,000 ml @ 150 mls/hr [id number] IV Last administered on 02/24/19at 07:26; Start 02/22/19 at 22:30 Sodium Phosphate 10 mmol/Dextrose 253.3333 ml @ 64.167 m... 1X ONCE IV Last administered on 02/23/19at 06:24; Start 02/23/19 at 04:00; Stop 02/23/19 at 07:56; Status DC Magnesium Sulfate 50 ml @ 25 mls/hr 1X ONCE IV Last administered on 02/23/19at 04:04; Start 02/23/19 at 04:00; Stop 02/23/19 at 05:59; Status DC Iohexol (Omnipaque 350 Mg/ml) 100 ml 1X ONCE IV Last administered on 02/23/19 09:58; Start 02/23/19 at 09:00; Stop 02/23/19 at 09:01; Status DC Info (CONTRAST GIVEN -- Rx MONITORING) 1 each PRN DAILY PRN MC SEE COMMENTS; Start 02/23/19 at 08:45; Stop 02/25/19 at 08:44 Magnesium Sulfate 50 ml @ 25 mls/hr 1X ONCE IV Last administered on 02/23/19at 10:40; Start 02/23/19 at 09:45; Stop 02/23/19 at 11:44; Status DC Potassium Chloride/Water 100 ml @ 100 mls/hr Q1H IV Last administered on 02/23/19at 10:41; Start 02/23/19 at 10:00; Stop 02/23/19 at 10:59; Status DC Atropine Sulfate (ATROPINE 1mg SYRINGE) 1 mg STK-MED ONCE .ROUTE ; Start 02/23/19 at 09:47; Stop 02/23/19 at 09:48; Status DC Famotidine (Pepcid) 20 mg QHS PO Last administered on 02/23/19at 19:45; Start 02/23/19 at 21:00 Ceftriaxone Sodium (Rocephin) 1 gm Q24H IVP Last administered on 02/24/19at 11:30; Start 02/23/19 at 11:30 Calcium Carbonate/ Glycine (Tums) 1,000 mg 1X ONCE PO Last administered on 02/23/19at 12:06; Start 02/23/19 at 11:45; Stop 02/23/19 at 11:47; Status DC Iohexol (Omnipaque 350 Mg/ml) 100 ml STK-MED ONCE .ROUTE ; Start 02/23/19 at 14:53; Stop 02/23/19 at 14:54; Status DC Magnesium Sulfate/ Dextrose 100 ml @ 100 mls/hr 1X ONCE IV Last administered on 02/23/19at 16:43; Start 02/23/19 at 16:45; Stop 02/23/19 at 17:44; Status DC Sodium Chloride 500 ml @ 500 mls/hr 1X ONCE IV Last administered on 02/23/19at 23:53; Start 02/23/19 at 23:45; Stop 02/24/19 at 00:44; Status DC Dopamine HCl/ Dextrose 250 ml @ 5.936 mls/ hr CONT PRN IV SEE I/O RECORD; Start 02/24/19 at 09:15 Norepinephrine Bitartrate 250 ml @ 1.875 mls/ hr CONT PRN IV SEE I/O RECORD Last administered on 02/24/19at 09:47; Start 02/24/19 at 09:30 Active Scripts Active Reported Quinapril Hcl 20 Mg Tablet 1 Tab PO DAILY Pravastatin Sodium 80 Mg Tablet 1 Tab PO DAILY Vitals/I & O Vital Sign - Last 24 Hours 02/23/19 02/23/19 02/23/19 02/23/19 15:00 15:00 15:36 16:00 Temp 90.7 Pulse 44 Resp 15 B/P (MAP) 100/60 (73) Pulse Ox 100 100 100 O2 Delivery Ventilator Ventilator Ventilator Mechanical Ventilator 02/23/19 02/23/19 02/23/19 02/23/19 16:00 16:00 17:00 17:00 Temp 90.2 91.4 Pulse 48 52 Resp 16 14 B/P (MAP) 97/61 (73) 108/54 (72) Pulse Ox 100 100 100 100 O2 Delivery Ventilator Ventilator Ventilator Ventilator 02/23/19 02/23/19 02/23/19 02/23/19 18:00 18:00 18:03 19:00 Temp 93.5 92.8 Pulse 58 Resp 18 B/P (MAP) 92/48 (63) Pulse Ox 100 100 100 100 O2 Delivery Ventilator Ventilator Ventilator Ventilator 02/23/19 02/23/19 02/23/19 02/23/19 19:00 19:52 20:00 20:00 Temp 90.9 91.2 91.2 Pulse 52 48 Resp 16 20 B/P (MAP) 89/53 (65) 137/70 (92) Pulse Ox 100 100 100 100 O2 Delivery Ventilator Ventilator Ventilator Ventilator 02/23/19 02/23/19 02/23/19 02/23/19 20:00 21:00 21:00 21:30 Temp 89.7 89.7 Pulse 35 Resp 16 B/P (MAP) 137/67 (90) Pulse Ox 100 100 100 O2 Delivery Mechanical Ventilator Ventilator Ventilator Ventilator 02/23/19 02/23/19 02/23/19 02/23/19 21:30 22:00 22:00 22:30 Temp 90.3 Pulse 34 35 37 Resp 16 16 16 B/P (MAP) 111/66 (81) 107/56 (73) 100/50 (67) Pulse Ox 100 100 100 100 O2 Delivery Ventilator Ventilator Ventilator Ventilator 02/23/19 02/23/19 02/23/19 02/23/19 22:30 22:41 23:00 23:00 Temp 90.8 91.1 Pulse 40 Resp 16 16 B/P (MAP) 91/53 (66) Pulse Ox 100 100 100 100 O2 Delivery Ventilator Ventilator Ventilator Ventilator 02/23/19 02/23/19 02/23/19 02/23/19 23:30 23:30 23:32 23:45 Temp 91.5 Pulse 45 46 Resp 16 16 B/P (MAP) 80/50 (60) 78/51 (60) Pulse Ox 100 100 100 100 O2 Delivery Ventilator Ventilator Ventilator Ventilator 02/23/19 02/23/19 02/23/19 02/24/19 23:46 23:59 23:59 00:00 Temp 91.8 91.8 91.8 Pulse 48 Resp 16 B/P (MAP) 80/50 (60) 77/59 (65) Pulse Ox 100 100 O2 Delivery Ventilator Ventilator Mechanical Ventilator 02/24/19 02/24/19 02/24/19 02/24/19 00:15 00:30 00:30 01:00 Temp 92.2 Pulse 52 53 54 Resp 16 16 16 B/P (MAP) 83/51 (62) 92/51 (65) 87/56 (66) Pulse Ox 100 100 100 100 O2 Delivery Ventilator Ventilator Ventilator Ventilator 02/24/19 02/24/19 02/24/19 02/24/19 01:00 01:30 01:30 02:00 Temp 92.5 92.9 Pulse 54 57 Resp 16 16 B/P (MAP) 90/50 (63) 89/53 (65) Pulse Ox 100 100 100 100 O2 Delivery Ventilator Ventilator Ventilator Ventilator 02/24/19 02/24/19 02/24/19 02/24/19 02:00 02:30 02:30 03:00 Temp 93.4 Pulse 48 46 Resp 20 16 B/P (MAP) 96/55 (69) 103/55 (71) Pulse Ox 100 100 100 100 O2 Delivery Ventilator Ventilator Ventilator Ventilator 02/24/19 02/24/19 02/24/19 02/24/19 03:00 03:30 03:36 04:00 Temp 93.7 93.6 93.0 93.0 Pulse 44 Resp 16 B/P (MAP) 90/53 (65) Pulse Ox 100 100 100 100 O2 Delivery Ventilator Ventilator Ventilator Ventilator 02/24/19 02/24/19 02/24/19 02/24/19 04:00 04:00 04:30 05:00 Temp 92.7 93.0 93.9 B/P (MAP) Pulse Ox 100 100 100 O2 Delivery Ventilator Mechanical Ventilator Ventilator Ventilator 02/24/19 02/24/19 02/24/19 02/24/19 05:00 05:05 05:30 05:30 Temp 94.8 Pulse 55 52 Resp 16 16 16 B/P (MAP) 96/73 (81) 110/55 (73) Pulse Ox 100 100 100 100 O2 Delivery Ventilator Ventilator Ventilator Ventilator 02/24/19 02/24/19 02/24/19 02/24/19 05:40 05:51 06:00 06:00 Temp 95.4 Pulse 50 Resp 16 16 B/P (MAP) 103/51 (68) Pulse Ox 100 100 100 100 O2 Delivery Ventilator Ventilator Ventilator Ventilator 02/24/19 02/24/19 02/24/19 02/24/19 06:30 06:30 07:00 07:00 Temp 95.7 95.7 Pulse 47 47 Resp 16 16 B/P (MAP) 103/62 (76) 93/56 (68) Pulse Ox 100 100 100 100 O2 Delivery Ventilator Ventilator Ventilator Ventilator 02/24/19 02/24/19 02/24/19 02/24/19 07:30 07:30 08:00 08:00 Temp 95.4 95.1 Pulse 46 Resp 17 B/P (MAP) 93/55 (68) Pulse Ox 100 100 100 O2 Delivery Ventilator Ventilator Mechanical Ventilator Ventilator 02/24/19 02/24/19 02/24/19 02/24/19 08:00 08:09 08:30 08:30 Temp 95.3 Pulse 46 50 Resp 16 16 B/P (MAP) 92/55 (67) Pulse Ox 100 100 98 100 O2 Delivery Ventilator Ventilator Ventilator Ventilator 02/24/19 02/24/19 02/24/19 02/24/19 09:00 09:00 09:30 09:30 Temp 96.6 96.9 Pulse 56 60 Resp 16 18 B/P (MAP) 80/49 (59) 92/53 (66) Pulse Ox 100 100 100 100 O2 Delivery Ventilator Ventilator Ventilator Ventilator 02/24/19 02/24/19 02/24/19 02/24/19 09:49 10:00 10:00 10:30 Temp 97.2 97.2 Pulse 56 Resp 18 B/P (MAP) 107/58 (74) Pulse Ox 100 100 100 100 O2 Delivery Ventilator Ventilator Ventilator Ventilator 02/24/19 02/24/19 02/24/19 02/24/19 11:00 11:00 11:56 12:00 Temp 97.6 Pulse 58 Resp 17 B/P (MAP) 94/50 (65) Pulse Ox 100 100 100 O2 Delivery Ventilator Ventilator Ventilator Mechanical Ventilator 02/24/19 02/24/19 12:00 13:00 Temp 97.2 97.2 Pulse 56 64 Resp 18 17 B/P (MAP) 107/58 (74) 103/55 (71) Pulse Ox 100 100 O2 Delivery Ventilator Ventilator Intake and Output 02/23/19 02/23/19 02/24/19 15:00 23:00 07:00 Intake Total 593 ml 1879.94 ml 2189 ml Output Total 400 ml 365 ml 210 ml Balance 193 ml 1514.94 ml 1979 ml NOE PADILLA MD February 24, 2019 14:37
== END 2019-02-24 14:00 | disposition short-term general hospital (02) | DRG 208 ==
LOC: EDBD 16:10 → ER 16:10 → 1 WEST ICU 17:18
PROVIDERS: ADMIT Internal Medicine; ATTEND Internal Medicine
PROC: 5A1945Z Respiratory Ventilation, 24-96 Consecutive Hours (ICD-10-PCS; principal; 2019-02-22)
PROC: 0BH17EZ Insertion of Endotracheal Airway into Trachea, Via Natural or Artificial Opening (ICD-10-PCS; 2019-02-22)
PROC: 5A12012 Performance of Cardiac Output, Single, Manual (ICD-10-PCS; 2019-02-22)
DX: J96.00 Acute respiratory failure, unspecified whether with hypoxia or hypercapnia (principal); I46.2 Cardiac arrest due to underlying cardiac condition; N17.0 Acute kidney failure with tubular necrosis; I49.01 Ventricular fibrillation; E44.0 Moderate protein-calorie malnutrition; J98.11 Atelectasis; I47.2 Ventricular tachycardia; E86.0 Dehydration; I10 Essential (primary) hypertension; E87.6 Hypokalemia; E78.5 Hyperlipidemia, unspecified; Z82.49 Family history of ischemic heart disease and other diseases of the circulatory system; Z68.26 Body mass index [BMI] 26.0-26.9, adult; T68.XXXA Hypothermia, initial encounter
CPT/HCPCS: 31500; 36415; 36600; 51702; 70450; 71045; 71275; 72125; 80047; 80048; 80053; 80307; 81001; 82310; 82550; 82553; 82805; 82947; 82962; 83036; 83690; 83735; 83880; 84100; 84484; 85025; 85027; 85610; 85730; 87641; 92950; 93005; 93306; 93970; 94002; 94003; 96361; 96365; 96375; J0282; J0696; J1644; J2250; J2270; J2704; J3010; J3475; J3480; J7030; J7040; Q9967; 99285-25